=== PATIENT | female | born 1985 | race Caucasian/White ===

== ENCOUNTER 2016-08-10 09:03 | Outpatient (CLI) | payer MEDICAID | END 2016-08-10 09:04 | disposition home or self-care (01) | DX: R10.32 Left lower quadrant pain (principal); R10.33 Periumbilical pain ==

== ENCOUNTER 2016-08-10 11:12 | Emergency (ER) | payer MEDICAID | END 2016-08-10 16:15 | disposition home or self-care (01) | DX: K59.01 Slow transit constipation (principal); R30.0 Dysuria ==

== ENCOUNTER 2016-09-15 18:55 | Emergency (ER) | payer MEDICAID ==
[2016-09-15] MEDS ORDERED: IPRATROPIUM/ALBUTEROL 3 ML NEB INH STA (20:13)
[2016-09-15] MEDS ORDERED: PSEUDOEPHEDRINE 30 MG TABLET PO STA (20:13)
[2016-09-15] MEDS ORDERED: BENZONATATE 100 MG CAPSULE PO STA (20:14)
[2016-09-15] MEDS ORDERED: KETOROLAC 60 MG/2 ML VIAL IM STA (20:14)
[2016-09-15] MEDS ORDERED: IPRATROPIUM/ALBUTEROL 3 ML NEB INH ONE (20:21)
[2016-09-15] MEDS ORDERED: KETOROLAC 60 MG/2 ML VIAL ONE (20:26)
[2016-09-15] MEDS ORDERED: PSEUDOEPHEDRINE 30 MG TABLET PO ONE (20:26)
[2016-09-15] MEDS ORDERED: BENZONATATE 100 MG CAPSULE PO ONE (20:26)
== END 2016-09-15 20:59 | disposition home or self-care (01) ==
DX: J06.9 Acute upper respiratory infection, unspecified (principal)
CPT/HCPCS: 94640; 96372; 99283; A9270; J7620

== ENCOUNTER 2016-10-05 23:01 | Emergency (ER) | payer MEDICAID ==
[2016-10-05] MEDS ORDERED: IPRATROPIUM/ALBUTEROL 3 ML NEB INH STA (23:40)
[2016-10-05] MEDS ORDERED: IPRATROPIUM/ALBUTEROL 3 ML NEB INH ONE (23:50)
[2016-10-06] MEDS ORDERED: predniSONE 20 MG TABLET PO STA (00:43)
[2016-10-06] MEDS ORDERED: oxyCOD/ACETAMIN 5 MG/325 MG TABLET PO STA (00:43)
[2016-10-06] MEDS ORDERED: oxyCOD/ACETAMIN 5 MG/325 MG TABLET PO ONE (00:48)
[2016-10-06] MEDS ORDERED: predniSONE 20 MG TABLET ONE (00:48)
== END 2016-10-06 01:04 | disposition home or self-care (01) ==
DX: J45.909 Unspecified asthma, uncomplicated (principal)
CPT/HCPCS: 94640; 99283; A9270; J7512; J7620

== ENCOUNTER 2016-10-20 22:29 | Emergency (ER) | payer MEDICAID ==
[2016-10-20] MEDS ORDERED: DEXAMETHASONE 10 MG/ML VIAL PO STA (23:06)
[2016-10-20] MEDS ORDERED: IPRATROPIUM/ALBUTEROL 3 ML NEB INH STA (23:06)
[2016-10-20] MEDS ORDERED: CHERRY SYRUP 10 ML UDC PO ONE (23:29)
[2016-10-20] MEDS ORDERED: DEXAMETHASONE 10 MG/ML VIAL ONE (23:29)
[2016-10-20] MEDS ORDERED: IPRATROPIUM/ALBUTEROL 3 ML NEB INH ONE (23:43)
[2016-10-21] MEDS ORDERED: AZITHROMYCIN 250 MG TABLET PO STA (01:49)
[2016-10-21] MEDS ORDERED: AZITHROMYCIN 250 MG TABLET PO ONE (01:54)
== END 2016-10-21 02:00 | disposition home or self-care (01) ==
DX: J45.901 Unspecified asthma with (acute) exacerbation (principal)
CPT/HCPCS: 71020; 94640; 99283; A9270; J7620

== ENCOUNTER 2016-11-09 20:25 | Emergency (ER) | payer MEDICAID ==
[2016-11-10] MEDS ORDERED: ACETAMINOPHEN 325 MG TABLET PO STA (00:47)
[2016-11-10] MEDS ORDERED: LORazepam 0.5 MG TABLET PO STA (00:47)
[2016-11-10] MEDS ORDERED: LORazepam 0.5 MG TABLET ONE (00:53)
[2016-11-10] MEDS ORDERED: ACETAMINOPHEN 325 MG TABLET PO ONE (00:54)
== END 2016-11-10 00:59 | disposition home or self-care (01) ==
DX: R00.2 Palpitations (principal); J45.909 Unspecified asthma, uncomplicated
CPT/HCPCS: 36415; 80048; 82550; 85025; 99283; A9270

== ENCOUNTER 2016-12-08 10:30 | Outpatient (CLI) | payer MEDICAID | END 2016-12-08 10:31 | DX: J02.9 Acute pharyngitis, unspecified (principal) ==

== ENCOUNTER 2017-01-26 19:10 | Emergency (ER) | payer MEDICAID ==
[2017-01-26 19:34] LABS: BILIRUBIN,URINE NEGATIVE (NEGATIVE); PH,URINE 7.5 PH (5.0-7.5)
[2017-01-26 19:39] LABS: UA w/ MICROSCOPIC CHARGE YES
[2017-01-26 19:40] LABS: HCG UR QUAL NEGATIVE
[2017-01-26 19:46] LABS: UR CULTURE IF IND NOT INDICATED; WBC,URINE 0-3 /HPF (0-5)
--- NOTE | 2017-01-26 20:01 | ED Physician Documentation ---
PD HPI FEMALE - Stated complaint Stated Complaint: FLANK PAIN - Chief complaint Chief Complaint: Abd Pain - History obtained from History obtained from: Patient - History of Present Illness Timing - onset: How many weeks ago (1) Timing - duration: Weeks (she has had flank and back pain for a week, on both sides, more to left. Having frequency and burning with urination couple of days. Feeling of incomplete emptying.) Timing - details: Gradual onset, Still present, Waxing and waning Associated symptoms: Back pain, Pelvic pain, Vaginal discharge (mild), Dysuria, Urinary frequency. No: Fever Contributing factors: No: , Exposed to STD Similar symptoms before: Diagnosis (UTIs) Recently seen: Not recently seen Review of Systems Constitutional: denies: Fever, Chills Throat: denies: Sore throat Cardiac: denies: Chest pain / pressure, Palpitations Respiratory: denies: Dyspnea, Cough GI: reports: Abdominal Pain (lower to left), Nausea. denies: Vomiting, Diarrhea : reports: Dysuria, Frequency, Discharge. denies: Vaginal bleeding Skin: denies: Rash, Lesions Musculoskeletal: reports: Back pain. 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, 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 - Present Medications Home Medications: Ambulatory Orders Medication Instructions Recorded Confirmed Albuterol Sulf [Ventolin Hfa 2 puffs INH .FREQ 08/01/16 11/09/16 Inhaler] Venlafaxine ER [Effexor ER] 1 cap PO DAILY 11/09/16 11/09/16 Metronidazole [Flagyl] 500 mg PO BID #14 tablet 01/26/17 Ondansetron Odt [Zofran] 4 mg TL Q6H PRN #15 tablet 01/26/17 Phenazopyridine [Pyridium] 200 mg PO TID PRN #15 tablet 01/26/17 - Allergies Allergies/Adverse Reactions: Allergies Allergy/AdvReac Type Severity Reaction Status Date / Time Penicillins Allergy Severe Rash Verified 01/26/17 19:19 Underpadding from last CTR AdvReac Severe Rash Uncoded 01/26/17 19:19 - Social History Does the pt smoke?: No Smoking Status: Never smoker Does the pt drink ETOH?: No Does the pt have substance abuse?: No - Immunizations Immunizations are current?: Yes - POLST Patient has POLST: No PD ED PE NORMAL - Vitals Vital signs reviewed: Yes - General General: Alert and oriented X 3, Well developed/nourished, Other (appears in pain) - HEENT HEENT: Pharynx benign - Neck Neck: Supple, no meningeal sign, No adenopathy - Cardiac Cardiac: RRR, No murmur - Respiratory Respiratory: Clear bilaterally - Abdomen Abdomen: Soft, Non distended, No organomegaly, Other (mildly tender suprapubic area without guarding. ) - Female Female : [employer] present, Other (external normal. Periurethral area without sores/redness. Vault with moderate amount of white to green discharge and cervical irritation. Cervical motion causes pain. ) - Rectal Rectal: Deferred - Back Back: No CVA TTP - Derm Derm: Normal color - Neuro Neuro: Alert and oriented X 3, No motor deficit, Normal speech Results - Vitals Vitals: Vital Signs - 24 hr 01/26/17 01/26/17 19:19 21:34 Temperature 36.0 C L Heart Rate 112 H 98 Respiratory 18 18 Rate Blood Pressure 136/86 H 122/79 O2 Saturation 99 99 Oxygen O2 Source Room air - Labs Labs: Microbiology 01/26/17 20:53 Wet Prep - Final Vaginal Laboratory Tests 01/26/17 17:27 Urine Color YELLOW Urine Clarity HAZY Urine pH 7.5 Ur Specific [place] 1.010 Urine Protein NEGATIVE Urine Glucose (UA) NEGATIVE Urine Ketones TRACE Urine Occult Blood SMALL H Urine Nitrite NEGATIVE Urine Bilirubin NEGATIVE Urine Urobilinogen 0.2 (NORMAL) Ur Leukocyte Esterase NEGATIVE Urine RBC 0-5 Urine WBC 0-3 Ur Squamous Epith Cells MANY Squamous H Urine Bacteria Few Ur Microscopic Review INDICATED Urine Culture Comments NOT INDICATED Urine HCG, Qual NEGATIVE PD MEDICAL DECISION MAKING - ED course Complexity details: considered differential (she does have recurrent musculoskeletal back pain so may be having just that. Her dysuria appears to be from vaginitis. She does have increase in back pain with cervical movement so some of the pain is from vaginitis. Does not seem to be kidney pain. She does have frequent visits with DIETER, but does have acute process that can be giving reasonable pain. Given prepack so just few doses pain meds. ), d/w patient Departure - Departure Disposition: 01 Home, Self Care Clinical Impression: Dysuria, Bacterial vaginitis, Flank pain Clinical Impression: (Ruled Out): Urinary tract infection Condition: Stable Record reviewed to determine appropriate education?: Yes Instructions: ED Vaginosis Bacterial Follow-Up: Torin Dixon MD [Primary Care Provider] - Prescriptions: Metronidazole [Flagyl] 500 mg PO BID #14 tablet Phenazopyridine [Pyridium] 200 mg PO TID PRN #15 tablet PRN Reason: Pain Ondansetron Odt [Zofran] 4 mg TL Q6H PRN #15 tablet PRN Reason: Nausea / Vomiting Comments: Tylenol or Ibuprofen for pains. Pyridium to help with the pain of urination. This appears to be caused by a bacterial infection called Gardnerella. Take metronidazole twice daily for a week for that. Drink lots of fluids. Zofran for nausea if needed. Recheck if not improved over the next few days. Discharge Date/Time: 01/26/17 21:35
[2017-01-26] MEDS ORDERED: oxyCOD/ACETAMIN 5 MG/325 MG TABLET PO STA (20:21)
[2017-01-26] MEDS ORDERED: DEXAMETHASONE 10 MG/ML VIAL PO STA (20:21)
[2017-01-26] MEDS ORDERED: PHENAZOPYRIDINE 100 MG TABLET PO STA (20:21)
[2017-01-26] MEDS ORDERED: oxyCOD/ACETAMIN 5 MG/325 MG TABLET PO ONE (20:22)
[2017-01-26] MEDS ORDERED: DEXAMETHASONE 10 MG/ML VIAL ONE (20:23)
[2017-01-26] MEDS ORDERED: PHENAZOPYRIDINE 100 MG TABLET PO ONE (20:23)
[2017-01-26] MEDS ORDERED: metroNIDAZOLE 250 MG TABLET PO STA (20:54)
[2017-01-26] MEDS ORDERED: FLUCONAZOLE 100 MG TABLET PO STA (20:54)
[2017-01-26] MEDS ORDERED: oxyCODONE/ACET 5/325 Prepack 4 PO STA (20:54)
[2017-01-26] MEDS ORDERED: oxyCODONE/ACET 5/325 Prepack 4 PO ONE (20:57)
[2017-01-26] MEDS ORDERED: metroNIDAZOLE 250 MG TABLET PO ONE (20:57)
[2017-01-26] MEDS ORDERED: FLUCONAZOLE 100 MG TABLET ONE (20:57)
[2017-01-26] MEDS ORDERED: ONDANSETRON ODT 4 MG TABLET TL STA (21:27)
[2017-01-26] MEDS ORDERED: ONDANSETRON ODT 4 MG TABLET ONE (21:29)
[2017-01-26 21:34] VITALS: BP 122/79
== END 2017-01-26 21:35 | disposition home or self-care (01) ==
LOC: ED 19:10
DX: N76.0 Acute vaginitis (principal); B96.89 Other specified bacterial agents as the cause of diseases classified elsewhere; R30.0 Dysuria; R10.30 Lower abdominal pain, unspecified; J45.909 Unspecified asthma, uncomplicated
CPT/HCPCS: 51798; 81001; 81025; 87210; 87491; 87591; 99283; 99284; A9270; Q0162; 81003; 87086

== ENCOUNTER 2017-04-10 20:38 | Emergency (ER) | payer MEDICAID ==
[2017-04-10 20:54] VITALS: BP 149/80
[2017-04-10] MEDS ORDERED: oxyCOD/ACETAMIN 5 MG/325 MG TABLET PO STA (22:27)
[2017-04-10] MEDS ORDERED: oxyCOD/ACETAMIN 5 MG/325 MG TABLET PO ONE (22:33)
--- NOTE | 2017-04-10 23:11 | XRAY Preliminary Report ---
Exam: XR Ankle 3 View RT IMPRESSION: 1. No fracture. 2. Normal alignment. [facility] SITE ID: [id number]
--- NOTE | 2017-04-10 23:11 | XRAY Preliminary Report ---
Exam: XR Foot 3 View RT IMPRESSION: No fracture or malalignment. [facility] SITE ID: [id number]
--- NOTE | 2017-04-10 23:19 | XRAY Report ---
EXAM: RIGHT FOOT RADIOGRAPHY EXAM DATE: 04/10/2017 10:54 PM. CLINICAL HISTORY: Right foot and ankle pain after falling. COMPARISON: 06/08/2008. TECHNIQUE: 3 views. FINDINGS: Bones: Normal. No fractures or bone lesions. Joints: Normal. No subluxations. Soft Tissues: Normal. No soft tissue swelling. IMPRESSION: No fracture or malalignment. [facility] Referring Provider Line: [phone] SITE ID: [id number]
--- NOTE | 2017-04-10 23:19 | ED Physician Documentation ---
PD HPI LOWER EXT INJURY - Stated complaint Stated Complaint: FOOT PX - Chief complaint Chief Complaint: Trauma Ext - History obtained from History obtained from: Patient - History of Present Illness PD HPI LOW EXT INJURY LOCATION: Right, Ankle Type of injury: Twist Where injury occurred: Home Timing - onset: How many hours ago (1) Timing - details: Abrupt onset Improved by: Ice, Immobilization Worsened by: Moving, Palpating Associated symptoms: Swelling, Discolored Similar symptoms before: Has not had sx before Recently seen: Not recently seen - Additional information Additional information: Patient is a 32 year old female with no significant past medical history who is presenting to the emergency department for ankle pain. Patient states that she was going down the stairs when she stepped on some rocks on the stair twisting her ankle. Patient denied any other trauma and did not fall. Review of Systems Constitutional: denies: Fever, Chills Eyes: reports: Reviewed and negative Ears: reports: Reviewed and negative Nose: denies: Epistaxis Throat: reports: Reviewed and negative Respiratory: reports: Reviewed and negative GI: denies: Nausea, Vomiting Skin: denies: Rash, Abrasion (s), Laceration (s) Musculoskeletal: reports: Extremity pain, Joint pain, Extremity swelling, Joint swelling Neurologic: reports: Numbness. 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 - Present Medications Home Medications: Ambulatory Orders Medication Instructions Recorded Confirmed Alprazolam 1 tab PO PRN PRN 04/10/17 04/10/17 Escitalopram [Lexapro] 1 tab PO DAILY 04/10/17 04/10/17 - Allergies Allergies/Adverse Reactions: Allergies Allergy/AdvReac Type Severity Reaction Status Date / Time Penicillins Allergy Severe Rash Verified 04/10/17 23:18 Underpadding from last CTR AdvReac Severe Rash Uncoded 04/10/17 23:18 - Social History Does the pt smoke?: No Smoking Status: Never smoker Does the pt drink ETOH?: No Does the pt have substance abuse?: No - Immunizations Immunizations are current?: Yes - POLST Patient has POLST: No PD ED PE NORMAL - General General: Alert and oriented X 3, Well developed/nourished - HEENT HEENT: Atraumatic, PERRL - Neck Neck: No bony TTP - Cardiac Cardiac: RRR, No murmur - Respiratory Respiratory: No respiratory distress - Abdomen Abdomen: Non distended - Neuro Neuro: Alert and oriented X 3, No motor deficit, No sensory deficit, Normal speech - Psych Psych: Normal mood, Normal affect PD ED PE EXPANDED - General General: Alert, In Pain - Extremities Extremities: Right ankle, Right foot (tenderness and swelling or right ankle and foot with ecchymosis) Results - Vitals Vitals: Vital Signs - 24 hr 04/10/17 20:52 Temperature 36.8 C Heart Rate 113 H Respiratory 18 Rate Blood Pressure 149/80 H O2 Saturation 100 Oxygen O2 Source Room air - Rads (name of study) x-ray foot and ankle Radiology: Final report received (no acute fracture or dislocation), See rad report PD MEDICAL DECISION MAKING - ED course Complexity details: reviewed old records, reviewed results, re-evaluated patient , considered differential, d/w patient ED course: Patient was seen and examined at bedside. Patient was treated with ice and percocet and sent for imaging. when patient returned the results were reviewed. there was no acute fracture or dislocation. Patient was placed in an ankle brace and was stable for discharge with outpatient follow up. Departure - Departure Disposition: 01 Home, Self Care Clinical Impression: Ankle injury Condition: Good Instructions: ED Sprain Ankle W X Ray Follow-Up: Torin Dixon MD [Primary Care Provider] - As Needed Comments: There was no acute fracture or dislocation on your imaging. You will need to take motrin or tylenol as needed for pain. You should ice your ankle at least 6 times a day and keep it elevated as much as possible. You will be put in ankle brace today, and should wear that for comfort. As the pain and swelling improves you should switch to the gene bandage. You should follow up with your pmd if your symptoms persist for more than 2 weeks. Forms: Activity restrictions Discharge Date/Time: 04/10/17 23:36
--- NOTE | 2017-04-10 23:19 | XRAY Report ---
EXAM: RIGHT ANKLE RADIOGRAPHY EXAM DATE: 04/10/2017 10:54 PM. CLINICAL HISTORY: Right ankle pain. COMPARISON: 06/08/2008. TECHNIQUE: 3 views. FINDINGS: Bones: Normal. No fractures or bone lesions. Joints: Normal. No effusion. No subluxations. The ankle mortise is normally aligned. Soft Tissues: Normal. No soft tissue swelling. IMPRESSION: 1. No fracture. 2. Normal alignment. [facility] Referring Provider Line: [phone] SITE ID: [id number]
== END 2017-04-10 23:36 | disposition home or self-care (01) ==
LOC: ED 20:38
DX: S99.911A Unspecified injury of right ankle, initial encounter (principal); X50.0XXA Overexertion from strenuous movement or load, initial encounter; Y92.019 Unspecified place in single-family (private) house as the place of occurrence of the external cause; J45.909 Unspecified asthma, uncomplicated
CPT/HCPCS: 73610; 73630; 99283; A9270

== ENCOUNTER 2017-06-20 08:46 | Outpatient (CLI) | payer MEDICAID ==
[2017-06-20 09:02] LABS: BASOPHILS % (AUTO) 0.4 %; EOSINOPHILS # (AUTO) 0.2 10^3/uL (0.0-0.7); EOSINOPHILS % (AUTO) 1.9 %; HCT - HEMATOCRIT 38.1 % (37.0-47.0); HGB - HEMOGLOBIN 12.5 g/dL (12.0-16.0); LYMPHOCYTES # (AUTO) 1.3 10^3/uL (1.5-3.5); MEAN CORPUSCULAR HEMOGLOBIN 25.5 pg (27.0-31.0); MEAN CORPUSCULAR HGB CONC 32.7 g/dL (32.0-36.0); MEAN PLATELET VOLUME 8.3 fL (7.9-10.8); MONOCYTES # (AUTO) 0.9 10^3/uL (0.0-1.0); MONOCYTES % (AUTO) 7.1 %; NEUTROPHILS # (AUTO) 9.7 10^3/uL (1.5-6.6); NEUTROPHILS % (AUTO) 79.6 %; RED BLOOD COUNT 4.88 10^6/uL (4.20-5.40); RED CELL DISTRIBUTION WIDTH 13.9 % (12.0-15.0); UNCORRECTED WHITE BLOOD COUNT 12.1 x10^3/uL; WHITE BLOOD COUNT 12.1 x10^3/uL (4.8-10.8)
[2017-06-20 09:18] LABS: HEMOGLOBIN A1C 0.57 g/dL
[2017-06-20 09:33] LABS: ALBUMIN/GLOBULIN RATIO 1.5 (1.0-2.2); BILIRUBIN,TOTAL 0.6 mg/dL (0.2-1.0); BUN - BLOOD UREA NITROGEN 7 mg/dL (6-20); CALCIUM 9.1 mg/dL (8.5-10.3); CARBON DIOXIDE - CO2 24 mmol/L (21-32); CHLORIDE 102 mmol/L (101-111); CHOL/HDL RATIO 3.6 (<4.4); CHOLESTEROL 180 mg/dL; CREATININE 0.7 mg/dL (0.4-1.0); GFR - MDRD 98 (>89); GLUCOSE 115 mg/dL (70-100); HDL CHOLESTEROL 50 mg/dL; LDL/HDL RATIO 2.3 (<4.4); POTASSIUM 3.2 mmol/L (3.5-5.0); SODIUM 137 mmol/L (135-145); TOTAL PROTEIN 7.5 g/dL (6.7-8.2); TRIGLYCERIDES 70 mg/dL; VLDL CHOLESTEROL 14 mg/dL
== END 2017-06-20 08:47 | disposition home or self-care (01) ==
LOC: LAB 08:46
PROVIDERS: ATTEND Physician Assistant Medical
DX: E11.9 Type 2 diabetes mellitus without complications (principal); Z79.899 Other long term (current) drug therapy; R31.9 Hematuria, unspecified
CPT/HCPCS: 36415; 80053; 80061; 83036; 84443; 85025; 87086

== ENCOUNTER 2017-06-20 15:20 | Outpatient (CLI) | payer MEDICAID | END 2017-06-20 15:21 | disposition home or self-care (01) | LOC: LAB.R 15:20 | PROVIDERS: ATTEND Family Medicine | DX: R31.9 Hematuria, unspecified (principal) | CPT/HCPCS: 87086 ==

== ENCOUNTER 2017-10-28 08:00 | Outpatient (CLI) | payer MEDICAID | END 2017-10-28 08:01 | disposition home or self-care (01) | LOC: LAB.R 08:00 | PROVIDERS: ATTEND Family Medicine | DX: R10.2 Pelvic and perineal pain (principal) | CPT/HCPCS: 87070; 87480; 87491; 87510; 87591; 87660 ==

== ENCOUNTER 2017-10-29 13:48 | Outpatient (CLI) | payer MEDICAID ==
--- NOTE | 2017-10-29 15:57 | Ultrasound Report ---
EXAM: PELVIC ULTRASOUND EXAM DATE: 10/29/2017 03:19 PM. CLINICAL HISTORY: OTHER OVARIAN CYST, RIGHT SIDE. COMPARISON: 08/10/2016. TECHNIQUE: Realtime transabdominal pelvic scan performed to identify the uterus and adnexa and as an overview of other pelvic structures, followed by transvaginal scan to provide greater detail of the u terus and adnexa, with static image documentation. FINDINGS: Uterus: 9.7 x 5.9 x 7.7 cm, volume 2:30 cc. Anteverted position. Normal overall size and echotexture. Masses: None. Endometrium: 14 mm. Normal. Cervix: Unremarkable. Right Ovary: 3.0 x 1.8 x 2.5 cm, volume 7.0 cc. Normal echotexture and color Doppler blood flow. Left Ovary: 3.7 x 1.6 x 2.2 cm, volume 6.8 cc. Normal echotexture. Seen only transabdominally. Free Fluid: Trace, likely physiologic. Other: None. IMPRESSION: Normal pelvic ultrasound. [facility] Referring Provider Line: [phone] SITE ID: [id number]
== END 2017-10-29 13:49 | disposition home or self-care (01) ==
LOC: DI 13:48
PROVIDERS: ATTEND Family Medicine
DX: N83.291 Other ovarian cyst, right side (principal)
CPT/HCPCS: 76830; 76856

== ENCOUNTER 2018-01-04 09:17 | Outpatient (CLI) | payer MEDICAID ==
--- NOTE | 2018-01-04 13:22 | XRAY Report ---
THREE VIEW CERVICAL SPINE: 01/04/2018 CLINICAL INDICATION: Radiculopathy. COMPARISON: 04/24/2012. FINDINGS: AP, lateral, odontoid views of the cervical spine demonstrate stable reversal of the normal cervical lordosis. The disk spaces are preserved. The prevertebral soft tissues are unremarkable. There is no evidence of interval fracture. IMPRESSION: NO EVIDENCE OF FRACTURE. NO SIGNIFICANT INTERVAL CHANGE. TD: 01/04/2018 13:03
== END 2018-01-04 09:18 | disposition home or self-care (01) ==
LOC: DI 09:17
PROVIDERS: ATTEND Family Medicine
DX: M54.12 Radiculopathy, cervical region (principal)
CPT/HCPCS: 72040

== ENCOUNTER 2018-01-06 11:00 | Outpatient (CLI) | payer MEDICAID | END 2018-01-06 11:01 | disposition home or self-care (01) | LOC: LAB.R 11:00 | PROVIDERS: ATTEND Family Medicine | DX: R31.9 Hematuria, unspecified (principal); N89.8 Other specified noninflammatory disorders of vagina | CPT/HCPCS: 87086 ==

== ENCOUNTER 2018-01-21 10:33 | Outpatient (CLI) | payer OTHER ==
--- NOTE | 2018-01-22 05:33 | CT Report ---
Procedure Date: 01/21/2018 Accession Number: [id number] / [id number] Procedure: CT - Abdomen/Pelvis W/O CPT Code: FULL RESULT: EXAM: CT ABDOMEN AND PELVIS (CT KUB) EXAM DATE: 01/21/2018 11:30 AM. CLINICAL HISTORY: Hematuria. COMPARISONS: 08/10/2016. TECHNIQUE: Routine axial helical CT imaging was performed through the abdomen and pelvis without IV contrast. Reconstructions: Coronal and sagittal. In accordance with CT protocol optimization, one or more of the following dose reduction techniques were utilized for this exam: automated exposure control, adjustment of mA and/or KV based on patient size, or use of iterative reconstructive technique. FINDINGS: Lung Bases: Unremarkable. Right Kidney/Ureter: No stones, hydronephrosis, or hydroureter. No perinephric fat stranding. Left Kidney/Ureter: No stones, hydronephrosis, or hydroureter. No perinephric fat stranding. Other Solid Organs: Noncontrast images of the solid organs are grossly unremarkable with exception of probable fatty liver. Gallbladder/Bile Ducts: Unremarkable. Peritoneal Cavity: No free fluid, free air or chioma adenopathy. Bowel is grossly unremarkable. Pelvic Organs: No bladder stones or wall thickening. Noncontrast images of the visualized pelvic organs are unremarkable. Vasculature: Unremarkable. Other: None. IMPRESSION: No urinary tract stones or obstruction. [facility]
== END 2018-01-21 10:34 | disposition home or self-care (01) ==
LOC: DI 10:33
PROVIDERS: ATTEND Family Medicine
DX: R31.9 Hematuria, unspecified (principal)
CPT/HCPCS: 74176

== ENCOUNTER 2018-02-27 00:16 | Emergency (ER) | payer OTHER ==
--- NOTE | 2018-02-27 00:51 | ED Physician Documentation ---
History of Present Illness - Stated complaint Stated Complaint: NEEDLE STICK - Chief complaint Chief Complaint: Needlestick - History obtained from History obtained from: Patient - Additonal information Additional information: 33-year-old female presents to the emergency department after a needlestick. The patient was hoping disrobe the patient on the floor and was stopped by his personal heroin needle. The needle was described as an insulin size needle. The needle did not puncture the patient's skin, there was no blood drawn. The patient had an abrasion to the finger. The patient denies pain or foreign body sensation. The source individual is being tested for hepatitis C and HIV. Otherwise the patient has no symptoms. 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 - Present Medications Home Medications: Ambulatory Orders Medication Instructions Recorded Confirmed ALPRAZolam [Alprazolam] 1 tab PO PRN PRN 04/10/17 02/27/18 Escitalopram [Lexapro] 1 tab PO DAILY 04/10/17 02/27/18 - Allergies Allergies/Adverse Reactions: Allergies Allergy/AdvReac Type Severity Reaction Status Date / Time Penicillins Allergy Severe Rash Verified 02/27/18 00:32 Underpadding from last CTR AdvReac Severe Rash Uncoded 02/27/18 00:32 - Social History Does the pt smoke?: No Smoking Status: Never smoker Does the pt drink ETOH?: No Does the pt have substance abuse?: No - Immunizations Immunizations are current?: Yes - POLST Patient has POLST: No PD ED PE NORMAL - General General: Alert and oriented X 3, No acute distress - HEENT HEENT: Atraumatic, PERRL, EOMI, Ears normal - Derm Derm: Normal color, No rash, Other (Evaluation of the affected hand, there is no evidence of a puncture wound or laceration or disruption of the skin. There is no bony injury. Normal cap refill and normal radial pulses.) - Extremities Extremities: No deformity, No tenderness to palpate, Normal ROM s pain - Neuro Neuro: Alert and oriented X 3, Normal speech - Psych Psych: Normal mood Results - Vitals Vitals: Vital Signs - 24 hr 02/27/18 00:20 Temperature 37.1 C Heart Rate 111 H Respiratory 20 Rate Blood Pressure 146/96 H O2 Saturation 100 Oxygen O2 Source Room air PD MEDICAL DECISION MAKING - ED course ED course: The patient currently has a very mild exposure, the source patient is being tested for hepatitis and HIV. Presently, the patient does not want HIV prophylaxis until the results from the patient are back. The patient appears appropriate for discharge and follow-up with employee health. I discussed warning signs and recommend returning to the emergency department for worsening or any concerns - Sepsis Event Vital Signs: Vital Signs - 24 hr 02/27/18 00:20 Temperature 37.1 C Heart Rate 111 H Respiratory 20 Rate Blood Pressure 146/96 H O2 Saturation 100 Oxygen O2 Source Room air Departure - Departure Disposition: 01 Home, Self Care Clinical Impression: Needle stick injury Condition: Good Instructions: ED Wound Puncture General Comments: Please follow-up with employee health for further management of your needlestick. Please return to the emergency department for worsening symptoms or any concerns
[2018-02-27 01:33] VITALS: BP 139/77
[2018-02-28 13:22] LABS: HEPATITIS B SURFACE AB QN IMM <5 mIU/mL (> OR = 10); HEPATITIS C ANTIBODY NON-REACTIVE (NON-REACTIVE)
[2018-02-28 14:13] LABS: HIV AG/AB 4TH GEN NON-REACTIVE (NON-REACTIVE)
== END 2018-02-27 01:20 | disposition home or self-care (01) ==
LOC: ED 00:16
DX: S60.419A Abrasion of unspecified finger, initial encounter (principal); W46.1XXA Contact with contaminated hypodermic needle, initial encounter; Z77.21 Contact with and (suspected) exposure to potentially hazardous body fluids; Y93.F9 Activity, other caregiving; Y99.0 Civilian activity done for income or pay
CPT/HCPCS: 36415; 86317; 86803; 87389; 99283

== ENCOUNTER 2018-03-03 09:00 | Outpatient (CLI) | payer MEDICAID, OTHER ==
[2018-03-03 12:56] LABS: BASOPHILS # (AUTO) 0.1 10^3/uL (0.0-0.1); BASOPHILS % (AUTO) 0.8 %; EOSINOPHILS # (AUTO) 0.2 10^3/uL (0.0-0.7); EOSINOPHILS % (AUTO) 2.4 %; LYMPHOCYTES # (AUTO) 2.9 10^3/uL (1.5-3.5); LYMPHOCYTES % (AUTO) 33.9 %; MEAN CORPUSCULAR HEMOGLOBIN 26.9 pg (27.0-31.0); MEAN CORPUSCULAR HGB CONC 33.9 g/dL (32.0-36.0); MEAN CORPUSCULAR VOLUME 79.3 fL (81.0-99.0); MEAN PLATELET VOLUME 9.5 fL (7.9-10.8); MONOCYTES # (AUTO) 0.7 10^3/uL (0.0-1.0); MONOCYTES % (AUTO) 8.4 %; NEUTROPHILS # (AUTO) 4.7 10^3/uL (1.5-6.6); NEUTROPHILS % (AUTO) 54.5 %; PLT - PLATELET COUNT 190 10^3/uL (130-450); RED BLOOD COUNT 4.44 10^6/uL (4.20-5.40); RED CELL DISTRIBUTION WIDTH 13.2 % (12.0-15.0); WHITE BLOOD COUNT 8.6 x10^3/uL (4.8-10.8)
[2018-03-03 13:22] LABS: ALBUMIN 4.2 g/dL (3.2-5.5); ALBUMIN/GLOBULIN RATIO 1.6 (1.0-2.2); BILIRUBIN,TOTAL 0.5 mg/dL (0.2-1.0); CALCIUM 9.1 mg/dL (8.5-10.3); CREATININE 0.7 mg/dL (0.4-1.0); TOTAL PROTEIN 6.8 g/dL (6.7-8.2)
[2018-03-03 14:06] LABS: THYROID STIMULATING HORMONE 8.19 uIU/mL (0.34-5.60)
[2018-03-03 14:10] LABS: FREE T4 (FREE THYROXINE) 0.89 ng/dL (0.58-1.64)
== END 2018-03-03 09:01 | disposition home or self-care (01) ==
LOC: LAB.WCP 09:00
PROVIDERS: ATTEND Family Medicine
DX: R00.2 Palpitations (principal); R03.0 Elevated blood-pressure reading, without diagnosis of hypertension; R73.9 Hyperglycemia, unspecified; R00.0 Tachycardia, unspecified
CPT/HCPCS: 36415; 80053; 84439; 84443; 84481; 85025

== ENCOUNTER 2018-03-06 15:57 | Emergency (ER) | payer OTHER ==
[2018-03-06] MEDS ORDERED: ALPRAZolam 0.25 MG TABLET PO STA (18:11)
--- NOTE | 2018-03-06 18:14 | ED Physician Documentation ---
History of Present Illness - Stated complaint Stated Complaint: RAPID HEART - Chief complaint Chief Complaint: Cardiac - History obtained from History obtained from: Patient - History of Present Illness Timing: Today Pain level max: 0 Pain level now: 0 Improved by: rest Worsened by: coffee, metoprolol, stress. recently started on nights. working two jobs and raising her children. - Additonal information Additional information: states feeling shaky and anxious recently states that she started working nights and started metoprolol. states doesn't like the way it makes her feel States xanax has helped in the past. Review of Systems Constitutional: denies: Fever, Chills Ears: denies: Ear pain Nose: denies: Rhinorrhea / runny nose, Congestion Cardiac: denies: Chest pain / pressure Respiratory: denies: Cough, Wheezing GI: denies: Vomiting, Diarrhea : denies: Dysuria, Now EGA Skin: denies: Rash Musculoskeletal: denies: Neck pain, Back pain Neurologic: denies: Focal weakness, Numbness, Confused, Altered mental status, Headache Psychiatric: reports: Anxiety PD PAST MEDICAL HISTORY - Past Medical History Past Medical History: Yes Cardiovascular: None Respiratory: Asthma Endocrine/Autoimmune: None GI: None : None HEENT: None Psych: Anxiety Musculoskeletal: None Derm: None - Past Surgical History Past Surgical History: Yes Ortho: Carpal Tunnel surgery, 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, 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 - Present Medications Home Medications: Ambulatory Orders Medication Instructions Recorded Confirmed ALPRAZolam [Alprazolam] 1 tab PO PRN PRN 04/10/17 02/27/18 Escitalopram [Lexapro] 1 tab PO DAILY 04/10/17 02/27/18 Alprazolam [Xanax] 0.5 mg PO BID PRN #10 tablet 03/06/18 - Allergies Allergies/Adverse Reactions: Allergies Allergy/AdvReac Type Severity Reaction Status Date / Time Penicillins Allergy Severe Rash Verified 02/27/18 00:32 Underpadding from last CTR AdvReac Severe Rash Uncoded 02/27/18 00:32 - Social History Does the pt smoke?: No Smoking Status: Never smoker Does the pt drink ETOH?: No Does the pt have substance abuse?: No - Immunizations Immunizations are current?: Yes - POLST Patient has POLST: No PD ED PE NORMAL - Vitals Vital signs reviewed: Yes - General General: Alert and oriented X 3, No acute distress - HEENT HEENT: Moist mucous membranes - Neck Neck: Supple, no meningeal sign - Cardiac Cardiac: RRR - Respiratory Respiratory: No respiratory distress, Clear bilaterally - Abdomen Abdomen: Soft, Non tender, Non distended - Back Back: No spinal TTP - Derm Derm: Warm and dry - Extremities Extremities: No edema, No calf tenderness / cord - Neuro Neuro: Alert and oriented X 3 - Psych Psych: Other (anxious) Results - Vitals Vitals: Vital Signs - 24 hr 03/06/18 03/06/18 15:57 18:29 Temperature 36.4 C L Heart Rate 110 H 105 H Respiratory 16 20 Rate Blood Pressure 139/87 H 150/89 H O2 Saturation 98 100 Oxygen O2 Source Room air - EKG (time done) 1605 Rate: Rate (enter#) (107) Rhythm: Sinus tachycardia [place]: Normal Intervals: Normal NC QRS: Normal Ischemia: Normal ST segments Computer interpretation: Agree with computer PD MEDICAL DECISION MAKING - ED course Complexity details: reviewed old records, reviewed results, re-evaluated patient , considered differential, d/w patient ED course: Patient is a 33-year-old female who presents to the emergency department with what appears to be anxiety. No evidence of pulmonary embolism. Feels much better after Xanax and Xanax has helped her in the past. She has been under increasing stress recently. We will have her follow-up with her doctor for further evaluation and care. Heart rate decreased. Patient counseled regarding signs and symptoms for which I believe and urgent re-evaluation would be necessary. Patient with good understanding of and agreement to plan and is comfortable going home at this time This document was made in part using voice recognition software. While efforts are made to proofread this document, sound alike and grammatical errors may occur. No chest pain here. No palpitations here. No shortness of breath here. No coughing. - Sepsis Event Vital Signs: Vital Signs - 24 hr 03/06/18 03/06/18 15:57 18:29 Temperature 36.4 C L Heart Rate 110 H 105 H Respiratory 16 20 Rate Blood Pressure 139/87 H 150/89 H O2 Saturation 98 100 Oxygen O2 Source Room air Departure - Departure Disposition: 01 Home, Self Care Clinical Impression: Anxiety Condition: Good Instructions: ED Panic Attack Follow-Up: Torin Dixon MD [Primary Care Provider] - Within 3 Days Prescriptions: Alprazolam [Xanax] 0.5 mg PO BID PRN #10 tablet PRN Reason: Anxiety Comments: Do not drive or operate heavy machinery while taking the Xanax. Return if you worsen. Follow-up with your doctor about your metoprolol. Forms: Activity restrictions Discharge Date/Time: 03/06/18 18:31
[2018-03-06 18:30] VITALS: BP 150/89
== END 2018-03-06 18:31 | disposition home or self-care (01) ==
LOC: ED 15:57
DX: F41.9 Anxiety disorder, unspecified (principal); R00.0 Tachycardia, unspecified
CPT/HCPCS: 93005; 99283; A9270

== ENCOUNTER 2018-05-05 03:41 | Emergency (ER) | payer MEDICAID, OTHER ==
[2018-05-05 03:48] VITALS: BP 168/108
--- NOTE | 2018-05-05 03:59 | ED Physician Documentation ---
PD HPI HEENT - Stated complaint Stated Complaint: THROAT PX - Chief complaint Chief Complaint: Heent - History obtained from History obtained from: Patient - History of Present Illness Timing - onset: How many days ago (2-3 days) Timing - duration: Days Timing - details: Gradual onset Pain level now: 8 Location: Throat Improves: Nothing Worsens: Swalllowing Associated symptoms: Headache. No: Fever, Congestion Similar symptoms before: Diagnosis (KEITA is similar to previous migraine headaches) - Additional information Additional information: c/o 2-3 days of gradual onset, steadily worsening sore throat, worse on right. 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 - Present Medications Home Medications: Ambulatory Orders Medication Instructions Recorded Confirmed Alprazolam [Xanax] 0.5 mg PO BID PRN #10 tablet 03/06/18 Hydrocodone/Acetaminophen 1 - 2 tab PO Q6HR PRN #14 tablet 05/05/18 [Hydrocodone-Acetamin 5-325 mg] Pnv No.121/Iron/Folic Acid 1 tab PO DAILY 05/05/18 05/05/18 [ Multivitamin Tablet] Sertraline [Zoloft] 50 mg PO DAILY 05/05/18 05/05/18 - Allergies Allergies/Adverse Reactions: Allergies Allergy/AdvReac Type Severity Reaction Status Date / Time Penicillins Allergy Severe Rash Verified 05/05/18 03:48 Underpadding from last CTR AdvReac Severe Rash Uncoded 05/05/18 03:48 - Social History Does the pt smoke?: No Smoking Status: Never smoker Does the pt drink ETOH?: No Does the pt have substance abuse?: No - Immunizations Immunizations are current?: Yes - POLST Patient has POLST: No PD ED PE NORMAL - Vitals Vital signs reviewed: Yes - General General: Alert and oriented X 3, Well developed/nourished, Other (appears uncomfortable) - HEENT HEENT: PERRL, EOMI, Moist mucous membranes - Neck Neck: Supple, no meningeal sign PD ED PE EXPANDED - HEENT HEENT: Pharyngeal erythema, Tonsillar exudate (R>L). No: Swollen tonsils Results - Vitals Vitals: Vital Signs - 24 hr 05/05/18 03:45 Temperature 36.8 C Heart Rate 90 Respiratory 16 Rate Blood Pressure 168/108 H O2 Saturation 100 Oxygen O2 Source Room air - Labs Labs: Laboratory Tests 05/05/18 03:00 Group A Strep Rapid Negative PD MEDICAL DECISION MAKING - ED course Complexity details: reviewed results, considered differential, d/w patient - Sepsis Event Vital Signs: Vital Signs - 24 hr 05/05/18 03:45 Temperature 36.8 C Heart Rate 90 Respiratory 16 Rate Blood Pressure 168/108 H O2 Saturation 100 Oxygen O2 Source Room air Departure - Departure Disposition: 01 Home, Self Care Clinical Impression: Pharyngitis Qualifiers: Pharyngitis/tonsillitis etiology: unspecified etiology Qualified Code(s): J02.9 - Acute pharyngitis, unspecified Condition: Good Instructions: ED Pharyngitis Viral Report Pending Prescriptions: Hydrocodone/Acetaminophen [Hydrocodone-Acetamin 5-325 mg] 1 - 2 tab PO Q6HR PRN #14 tablet PRN Reason: Pain Forms: Activity restrictions Discharge Date/Time: 05/05/18 04:47
[2018-05-05] MEDS ORDERED: DEXAMETHASONE 10 MG/ML VIAL PO STA (04:36)
[2018-05-05] MEDS ORDERED: HYDROcod/ACETAM 5/325 MG TABLET PO STA (04:36)
[2018-05-05] MEDS ORDERED: CHERRY SYRUP 10 ML UDC PO ONE (04:42)
== END 2018-05-05 04:47 | disposition home or self-care (01) ==
LOC: ED 03:41
DX: J02.9 Acute pharyngitis, unspecified (principal)
CPT/HCPCS: 87070; 87430; 99283; A9270

== ENCOUNTER 2018-05-24 17:13 | Emergency (ER) | payer OTHER ==
[2018-05-24 17:18] VITALS: BP 153/90
[2018-05-24] MEDS ORDERED: NAPROXEN 250 MG TABLET PO STA (17:59)
--- NOTE | 2018-05-24 18:11 | XRAY Report ---
Reason: pain Procedure Date: 05/24/2018 Accession Number: [id number] / [id number] Procedure: XR - Shoulder 3 View LT CPT Code: FULL RESULT: EXAM: LEFT SHOULDER RADIOGRAPHY EXAM DATE: 05/24/2018 05:56 PM. CLINICAL HISTORY: Pain. COMPARISON: None. TECHNIQUE: 3 views. FINDINGS: Bones: Normal. No fracture or bone lesion. Joints: The glenohumeral and acromioclavicular joints are normal. Soft tissues: The visualized hemithorax is unremarkable. No soft tissue swelling. IMPRESSION: Normal shoulder radiography. RADIA
--- NOTE | 2018-05-24 18:35 | ED Physician Documentation ---
PD HPI UPPER EXT INJURY - Stated complaint Stated Complaint: LT SHOULDER PX/NUMBNESS DOWN TO FINGERS - Chief complaint Chief Complaint: Ext Problem - History obtained from History obtained from: Patient - History of Present Illness Location: Left, Shoulder Type of injury: Other (No specific injury) Timing - onset: How many weeks ago (1 week) Timing - details: Gradual onset Severity Comments: Moderate Improved by: Rest Worsened by: Moving, Palpating Associated symptoms: No: Weakness, Numbness, Tingling, Swelling, Discolored Contributing factors: No: Anticoagulated Similar symptoms before: Has not had sx before Recently seen: Not recently seen - Additonal information Additional information: 33-year-old reports pain in her left shoulder which is worse with movement. No recent injury or trauma. Review of Systems Constitutional: denies: Fever Eyes: denies: Loss of vision Ears: denies: Ear pain Throat: denies: Sore throat Cardiac: denies: Chest pain / pressure Musculoskeletal: reports: Extremity pain, Joint pain Neurologic: denies: Generalized weakness, Focal weakness, Numbness Immunocompromised: denies: Chemotherapy PD PAST MEDICAL HISTORY - Past Medical History Cardiovascular: None Respiratory: Asthma Endocrine/Autoimmune: None GI: None : None HEENT: None Psych: Anxiety Musculoskeletal: None Derm: None - Past Surgical History Past Surgical History: Yes Ortho: Carpal Tunnel surgery, 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, 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 - Present Medications Home Medications: Ambulatory Orders Medication Instructions Recorded Confirmed Alprazolam [Xanax] 0.5 mg PO BID PRN #10 tablet 03/06/18 - Allergies Allergies/Adverse Reactions: Allergies Allergy/AdvReac Type Severity Reaction Status Date / Time Penicillins Allergy Severe Rash Verified 05/24/18 17:19 Underpadding from last CTR AdvReac Severe Rash Uncoded 05/24/18 17:19 - Social History Does the pt smoke?: No Smoking Status: Never smoker Does the pt drink ETOH?: No Does the pt have substance abuse?: No - Immunizations Immunizations are current?: Yes - POLST Patient has POLST: No PD ED PE NORMAL - General General: Alert and oriented X 3, No acute distress - HEENT HEENT: Atraumatic, PERRL, EOMI, Ears normal - Neck Neck: No bony TTP - Back Back: No CVA TTP - Derm Derm: Normal color - Extremities Extremities: No deformity, Normal ROM s pain, No edema. No: No tenderness to palpate (The patient has tenderness to palpation in the shoulder, there is no evidence of swelling or deformity. The patient appears to have normal range of motion. The patient has no pain on passive range of motion. The patient has a normal radial pulse and normal cap refill and there is no swelling of the extremity.) - Neuro Neuro: Alert and oriented X 3, No motor deficit, Normal speech - Psych Psych: Normal affect Results - Vitals Vitals: Vital Signs - 24 hr 05/24/18 17:17 Temperature 36.5 C Heart Rate 110 H Respiratory 16 Rate Blood Pressure 153/90 H O2 Saturation 100 Oxygen O2 Source Room air - Rads (name of study) shoulder Radiology: Final report received PD MEDICAL DECISION MAKING - ED course ED course: No acute abnormality seen on x-ray, the patient appears appropriate for discharge and ongoing outpatient management. I advise close follow-up with primary care for an outpatient MRI, physical therapy and a referral to orthopedics. I discussed warning signs and recommended returning to the emergency department for any worsening or any concerns. Departure - Departure Disposition: 01 Home, Self Care Clinical Impression: Left shoulder pain Qualifiers: Chronicity: acute Qualified Code(s): M25.512 - Pain in left shoulder Condition: Good Instructions: ED Shoulder Pain UKO Follow-Up: Max Dorman MD [Primary Care Provider] - Within 1 week (Please ask your primary care about possibly ordering an MRI to further evaluate your shoulder pain. Please ask your primary care about a referral to orthopedics and physical therapy.) Comments: Please return to the emergency department for worsening symptoms or any concerns
== END 2018-05-24 19:03 | disposition home or self-care (01) ==
LOC: ED 17:13
DX: M25.512 Pain in left shoulder (principal)
CPT/HCPCS: 73030; 99283; A9270

== ENCOUNTER 2018-06-06 11:24 | Outpatient (CLI) | payer OTHER ==
[2018-06-06 18:41] LABS: BASOPHILS # (AUTO) 0.1 10^3/uL (0.0-0.1); BASOPHILS % (AUTO) 1.1 %; EOSINOPHILS # (AUTO) 0.1 10^3/uL (0.0-0.7); EOSINOPHILS % (AUTO) 1.7 %; HGB - HEMOGLOBIN 12.5 g/dL (12.0-16.0); LYMPHOCYTES % (AUTO) 27.3 %; MEAN CORPUSCULAR HEMOGLOBIN 25.8 pg (27.0-31.0); MEAN CORPUSCULAR HGB CONC 32.2 g/dL (32.0-36.0); MEAN CORPUSCULAR VOLUME 79.9 fL (81.0-99.0); MEAN PLATELET VOLUME 9.3 fL (7.9-10.8); MONOCYTES # (AUTO) 0.5 10^3/uL (0.0-1.0); MONOCYTES % (AUTO) 6.5 %; NEUTROPHILS # (AUTO) 4.7 10^3/uL (1.5-6.6); NEUTROPHILS % (AUTO) 63.4 %; PLT - PLATELET COUNT 241 10^3/uL (130-450); RED BLOOD COUNT 4.85 10^6/uL (4.20-5.40); RED CELL DISTRIBUTION WIDTH 14.2 % (12.0-15.0); WHITE BLOOD COUNT 7.4 x10^3/uL (4.8-10.8)
[2018-06-06 19:13] LABS: % IRON SATURATION 33 % (20-50); IRON 140 ug/dL (28-170); TOTAL IRON BINDING CAPACITY 428 ug/dL (250-450); TRANSFERRIN 306 mg/dL (192-382)
== END 2018-06-06 11:25 | disposition home or self-care (01) ==
LOC: LAB.WCP 11:24
PROVIDERS: ATTEND Family Medicine
DX: D64.9 Anemia, unspecified (principal)
CPT/HCPCS: 36415; 82728; 83540; 84466; 85025

== ENCOUNTER 2018-08-23 22:28 | Emergency (ER) | payer BC, OTHER ==
[2018-08-23 22:54] LABS: BILIRUBIN,URINE NEGATIVE (NEGATIVE); GLUCOSE, URINE (UA) NEGATIVE (NEGATIVE); KETONES,URINE (UA) NEGATIVE (NEGATIVE); LEUKOCYTE ESTERASE, URINE NEGATIVE (NEGATIVE); NITRITE,URINE NEGATIVE (NEGATIVE); OCCULT BLOOD,URINE SMALL (NEGATIVE); PROTEIN,URINE NEGATIVE (NEGATIVE); UROBILINOGEN,URINE 0.2 (NORMAL) E.U./dL (NORMAL)
[2018-08-23 22:55] LABS: CLARITY,URINE CLEAR (CLEAR); HCG UR QUAL NEGATIVE
[2018-08-23 23:04] LABS: BACTERIA,URINE None Seen /HPF (None Seen); RBC,URINE None Seen /HPF (0-5); SQUAMOUS EPITHELIAL CELL,UR RARE Squamous (<= Few)
[2018-08-23 23:53] LABS: BASOPHILS % (AUTO) 0.5 %; EOSINOPHILS # (AUTO) 0.1 10^3/uL (0.0-0.7); HGB - HEMOGLOBIN 12.2 g/dL (12.0-16.0); LYMPHOCYTES # (AUTO) 3.4 10^3/uL (1.5-3.5); LYMPHOCYTES % (AUTO) 31.7 %; MEAN CORPUSCULAR HEMOGLOBIN 25.8 pg (27.0-31.0); MEAN CORPUSCULAR HGB CONC 32.9 g/dL (32.0-36.0); MEAN CORPUSCULAR VOLUME 78.4 fL (81.0-99.0); MEAN PLATELET VOLUME 8.4 fL (7.9-10.8); MONOCYTES # (AUTO) 0.8 10^3/uL (0.0-1.0); MONOCYTES % (AUTO) 7.5 %; NEUTROPHILS # (AUTO) 6.4 10^3/uL (1.5-6.6); NEUTROPHILS % (AUTO) 59.3 %; PLT - PLATELET COUNT 239 10^3/uL (130-450); RED BLOOD COUNT 4.74 10^6/uL (4.20-5.40); RED CELL DISTRIBUTION WIDTH 14.2 % (12.0-15.0); WHITE BLOOD COUNT 10.8 x10^3/uL (4.8-10.8)
[2018-08-24 00:01] LABS: CREATININE 0.7 mg/dL (0.4-1.0)
--- NOTE | 2018-08-24 00:21 | CT Report ---
Reason: Left flank pain, hematuria Procedure Date: 08/24/2018 Accession Number: [id number] / [id number] Procedure: CT - Abdomen/Pelvis W/O CPT Code: FULL RESULT: EXAM: CT ABDOMEN AND PELVIS (CT KUB) EXAM DATE: 08/24/2018 12:00 AM. CLINICAL HISTORY: Left flank pain, hematuria. COMPARISONS: ABDOMEN/PELVIS W/O 01/21/2018 11:27 AM. TECHNIQUE: Routine axial helical CT imaging was performed through the abdomen and pelvis without IV contrast. Reconstructions: Coronal and sagittal. In accordance with CT protocol optimization, one or more of the following dose reduction techniques were utilized for this exam: automated exposure control, adjustment of mA and/or KV based on patient size, or use of iterative reconstructive technique. FINDINGS: Lung Bases: Unremarkable. Right Kidney/Ureter: No stones, hydronephrosis, or hydroureter. No perinephric fat stranding. Left Kidney/Ureter: No stones, hydronephrosis, or hydroureter. No perinephric fat stranding. Other Solid Organs: Fatty liver. Spleen, pancreas, and adrenals show no focal abnormalities on this noncontrast examination. Gallbladder/Bile Ducts: Unremarkable. Peritoneal Cavity: No bowel obstruction seen. No diverticulitis. Moderate stool in the colon, right greater than left. No free air or free fluid. Normal sized mesenteric lymph nodes. Appendix appears normal. Pelvic Organs: Relatively decompressed urinary bladder with possible slight wall thickening. Visualized pelvic organs are otherwise unremarkable. Vasculature: Unremarkable. Other: None. IMPRESSION: 1. No urolithiasis seen. 2. Possible slight urinary bladder wall thickening. This may simply be due to nondistention. Correlate with urinalysis. 3. Fatty liver. RADIA
[2018-08-24] MEDS ORDERED: KETOROLAC 15 MG/ML VIAL IM STA (00:28)
[2018-08-24] MEDS ORDERED: ACETAMINOPHEN 325 MG TABLET PO STA (00:28)
[2018-08-24] MEDS ORDERED: PHENAZOPYRIDINE 100 MG TABLET PO STA (00:39)
--- NOTE | 2018-08-24 00:41 | ED Physician Documentation ---
PD HPI FEMALE - Stated complaint Stated Complaint: FEMALE - Chief complaint Chief Complaint: UTI - History obtained from History obtained from: Patient - History of Present Illness Timing - onset: How many days ago (2) Timing - duration: Days (2) Timing - details: Gradual onset Pain level max: 3 Pain level max: 3 Severity Comments: mild Associated symptoms: Other (Flank pain) Review of Systems Ten Systems: 10 systems reviewed and negative Constitutional: reports: Reviewed and negative Eyes: reports: Reviewed and negative Ears: reports: Reviewed and negative Nose: reports: Reviewed and negative Throat: reports: Reviewed and negative Cardiac: reports: Reviewed and negative Respiratory: reports: Reviewed and negative GI: reports: Reviewed and negative : reports: Reviewed and negative Skin: reports: Reviewed and negative Musculoskeletal: reports: Reviewed and negative Neurologic: reports: Reviewed and negative Psychiatric: reports: Reviewed and negative Endocrine: reports: Reviewed and negative Immunocompromised: reports: Reviewed and negative PD PAST MEDICAL HISTORY - Past Medical History Cardiovascular: None Respiratory: Asthma Endocrine/Autoimmune: None GI: None : None HEENT: None Psych: Anxiety Musculoskeletal: None Derm: None Other Past Medical History: Reviewed and not pertinent - Past Surgical History Past Surgical History: Yes Ortho: Carpal Tunnel surgery, 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, 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 Other past surgical history: Reviewed and not pertinent - Present Medications Home Medications: Ambulatory Orders Medication Instructions Recorded Confirmed Alprazolam [Xanax] 0.5 mg PO BID PRN #10 tablet 03/06/18 08/24/18 Naproxen [Naprosyn] 500 mg PO BID PRN 30 Days #30 05/24/18 08/24/18 tablet Phenazopyridine HCl [Pyridium] 200 mg PO TID PRN #6 tablet 08/24/18 - Allergies Allergies/Adverse Reactions: Allergies Allergy/AdvReac Type Severity Reaction Status Date / Time Penicillins Allergy Severe Rash Verified 08/23/18 22:32 Underpadding from last CTR AdvReac Severe Rash Uncoded 05/24/18 17:19 - Social History Does the pt smoke?: No Smoking Status: Never smoker Does the pt drink ETOH?: No Does the pt have substance abuse?: No - Family History Family history: reports: Other (Reviewed and not pertinent) - Immunizations Immunizations are current?: Yes - POLST Patient has POLST: No PD ED PE NORMAL - Vitals Vital signs reviewed: Yes - General General: Alert and oriented X 3, No acute distress - HEENT HEENT: PERRL - Neck Neck: Supple, no meningeal sign - Cardiac Cardiac: RRR, No murmur - Respiratory Respiratory: Clear bilaterally - Abdomen Abdomen: Normal bowel sounds, Soft, Non tender, Non distended - Derm Derm: Warm and dry - Extremities Extremities: No deformity - Neuro Neuro: Alert and oriented X 3 - Psych Psych: Normal mood, Normal affect Results - Vitals Vitals: Vital Signs - 24 hr 08/23/18 08/24/18 22:29 00:49 Temperature 36.4 C L Heart Rate 104 H 80 Respiratory 16 17 Rate Blood Pressure 152/89 H 131/79 H O2 Saturation 99 98 Oxygen O2 Source Room air - Labs Labs: Laboratory Tests 08/23/18 08/23/18 08/23/18 22:40 23:45 23:45 WBC 10.8 RBC 4.74 Hgb 12.2 Hct 37.1 MCV 78.4 L MCH 25.8 L MCHC 32.9 RDW 14.2 Plt Count 239 MPV 8.4 Neut # (Auto) 6.4 Lymph # (Auto) 3.4 Titus # (Auto) 0.8 Eos # (Auto) 0.1 Baso # (Auto) 0.0 Absolute Nucleated RBC 0.00 Nucleated RBC % 0.0 Sodium 136 Potassium 3.5 Chloride 102 Carbon Dioxide 27 Anion Gap 7.0 BUN 14 Creatinine 0.7 Estimated GFR (MDRD) 98 Glucose 112 H Calcium 9.0 Urine Color COLORLESS Urine Clarity CLEAR Urine pH 7.0 Ur Specific [place] <=1.005 Urine Protein NEGATIVE Urine Glucose (UA) NEGATIVE Urine Ketones NEGATIVE Urine Occult Blood SMALL H Urine Nitrite NEGATIVE Urine Bilirubin NEGATIVE Urine Urobilinogen 0.2 (NORMAL) Ur Leukocyte Esterase NEGATIVE Urine RBC None Seen Urine WBC 0-3 Ur Squamous Epith Cells RARE Squamous Urine Bacteria None Seen Ur Microscopic Review INDICATED Urine Culture Comments NOT INDICATED Urine HCG, Qual NEGATIVE - Rads (name of study) CT Abd pelv Radiology: Final report received (WNL) PD MEDICAL DECISION MAKING - ED course Complexity details: reviewed results, re-evaluated patient, considered differential, d/w patient ED course: 33-year-old female with history of kidney stones presents with hematuria, dysuria, left flank pain. Urinalysis notable for microscopic hematuria. CT abdomen pelvis showed no stone. Consistent with passed stone or possibly vaginitis. Departure - Departure Disposition: 01 Home, Self Care Clinical Impression: Flank pain, Dysuria Hematuria Qualifiers: Hematuria type: other microscopic Qualified Code(s): R31.29 - Other microscopic hematuria Condition: Good Instructions: ED Dysuria Uncertain Cause Ch, ED Flank Pain Uncertain Cause Follow-Up: Max Dorman MD [Primary Care Provider] - Prescriptions: Phenazopyridine HCl [Pyridium] 200 mg PO TID PRN #6 tablet PRN Reason: dysuria Comments: You may try [id number] treatments for vaginitis. Take 1000 mg 3 times daily for pain. Follow-up with PCP within 1-2 days. Return with worsening symptoms. Discharge Date/Time: 08/24/18 00:50
[2018-08-24 00:50] VITALS: BP 131/79
== END 2018-08-24 00:50 | disposition home or self-care (01) ==
LOC: ED 22:28
DX: R30.0 Dysuria (principal); R31.29 Other microscopic hematuria; R10.32 Left lower quadrant pain; Z87.442 Personal history of urinary calculi
CPT/HCPCS: 36415; 74176; 80048; 81001; 81025; 85025; 96372; 99283; A9270; 81003; 87086

== ENCOUNTER 2018-09-28 11:46 | Outpatient (CLI) | payer BC ==
--- NOTE | 2018-09-28 16:12 | XRAY Report ---
Reason: URI-ACUTE/ASTHMA Procedure Date: 09/28/2018 Accession Number: [id number] / [id number] Procedure: WCP - Chest 2 View X-Ray CPT Code: 43672 FULL RESULT: EXAM: CHEST RADIOGRAPHY EXAM DATE: 09/28/2018 12:00 PM. CLINICAL HISTORY: Upper respiratory infection-acute/asthma. COMPARISON: Chest 2 view PA/LAT 10/21/2016 12:38 AM. TECHNIQUE: 2 views. FINDINGS: Lungs/Pleura: No focal opacities evident. No pleural effusion. No pneumothorax. Normal volumes. Mediastinum: Heart and mediastinal contours are unremarkable. Other: None. IMPRESSION: Normal 2-view chest radiography. RADIA
== END 2018-09-28 11:47 | disposition home or self-care (01) ==
LOC: DI.WCP 11:46
PROVIDERS: ATTEND Family Medicine
DX: J06.9 Acute upper respiratory infection, unspecified (principal); J45.909 Unspecified asthma, uncomplicated
CPT/HCPCS: 71046

== ENCOUNTER 2018-11-24 11:16 | Emergency (ER) | payer BC ==
[2018-11-24] MEDS ORDERED: ACETAMINOPHEN 325 MG TABLET PO STA (12:18)
[2018-11-24] MEDS ORDERED: DEXAMETHASONE 10 MG/ML VIAL PO STA (12:20)
[2018-11-24] MEDS ORDERED: CHERRY SYRUP 10 ML UDC PO ONE (12:20)
--- NOTE | 2018-11-24 12:30 | ED Physician Documentation ---
History of Present Illness - Stated complaint Stated Complaint: LT SIDE FACE SWOLLEN - Chief complaint Chief Complaint: Heent - History obtained from History obtained from: Patient - History of Present Illness Timing: Last night Pain level max: 7 Pain level now: 7 - Additonal information Additional information: 33-year-old female presents to the emergency department with a sore throat since last night. Complains of swelling to the left side of the face as well. No fevers. No rhinorrhea or congestion. No cough. Worse with swallowing. 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 - Present Medications Home Medications: Ambulatory Orders Medication Instructions Recorded Confirmed Alprazolam [Xanax] 0.5 mg PO BID PRN #10 tablet 03/06/18 08/24/18 - Allergies Allergies/Adverse Reactions: Allergies Allergy/AdvReac Type Severity Reaction Status Date / Time Penicillins Allergy Severe Rash Verified 08/23/18 22:32 Underpadding from last CTR AdvReac Severe Rash Uncoded 05/24/18 17:19 - Social History Does the pt smoke?: No Smoking Status: Never smoker Does the pt drink ETOH?: No Does the pt have substance abuse?: No - Immunizations Immunizations are current?: Yes - POLST Patient has POLST: No PD ED PE NORMAL - Vitals Vital signs reviewed: Yes - General General: Alert and oriented X 3, No acute distress - HEENT HEENT: PERRL, Ears normal, Moist mucous membranes, Other (Mild posterior pharyngeal erythema without tonsillar exudates. No trismus. Normal phonation.) - Neck Neck: Supple, no meningeal sign, Other (Cervical lymphadenopathy present, left greater than right) - Cardiac Cardiac: RRR - Respiratory Respiratory: No respiratory distress, Clear bilaterally - Derm Derm: Warm and dry - Neuro Neuro: Alert and oriented X 3 Results - Vitals Vitals: Vital Signs - 24 hr 11/24/18 11/24/18 11:22 12:42 Temperature 36.8 C Heart Rate 86 72 Respiratory 18 16 Rate Blood Pressure 140/108 H 151/92 H O2 Saturation 99 100 Oxygen O2 Source Room air - Labs Labs: Laboratory Tests 11/24/18 12:08 Group A Strep Rapid Negative PD MEDICAL DECISION MAKING - ED course Complexity details: reviewed results, considered differential, d/w patient ED course: Patient with what appears to be a viral pharyngitis. Rapid strep is negative. No tonsillar exudates. Given dexamethasone. Will utilize Motrin and Tylenol as needed for pain at home. We will continue supportive care and follow-up with her doctor. No evidence of retropharyngeal or parapharyngeal abscess. No evidence of peritonsillar abscess. Patient counseled regarding signs and symptoms for which I believe and urgent re-evaluation would be necessary. Patient with good understanding of and agreement to plan and is comfortable going home at this time This document was made in part using voice recognition software. While efforts are made to proofread this document, sound alike and grammatical errors may occur. Departure - Departure Disposition: 01 Home, Self Care Clinical Impression: Viral pharyngitis Condition: Good Instructions: ED Pharyngitis Viral Follow-Up: Max Dorman MD [Primary Care Provider] - Within 1 week Comments: Drink plenty of fluids and rest. Return if you worsen. Your rapid strep test is negative today. A backup throat culture will be sent and if this is positive we will call you to place you on antibiotics. Forms: Activity restrictions Discharge Date/Time: 11/24/18 12:42
[2018-11-24 12:43] VITALS: BP 151/92
== END 2018-11-24 12:42 | disposition home or self-care (01) ==
LOC: ED 11:16
DX: J02.8 Acute pharyngitis due to other specified organisms (principal); B97.89 Other viral agents as the cause of diseases classified elsewhere
CPT/HCPCS: 87070; 87430; 99283; A9270

== ENCOUNTER 2018-12-14 17:15 | Emergency (ER) | payer BC ==
[2018-12-14] MEDS ORDERED: ALBUTEROL NEB 2.5 MG/3 ML INH STA (19:45)
[2018-12-14] MEDS ORDERED: predniSONE 20 MG TABLET PO STA (19:46)
--- NOTE | 2018-12-14 19:52 | ED Physician Documentation ---
PD HPI URI - Stated complaint Stated Complaint: COUGHING UP BLOOD - Chief complaint Chief Complaint: Resp - History obtained from History obtained from: Patient - History of Present Illness Timing - onset: How many days ago (several) Timing duration: Days Timing details: Gradual onset Pain level max: 4 Pain level now: 3 Associated symptoms: Fever, Chills, Nasal congestion, Rhinorrhea, Productive cough, Hemoptysis (states small amount of blood in her sputum today.), Dyspnea ( wheezing) Contributing factors: Sick contact, COPD / asthma Improves by: Rest, MDI/nebulizer Worsened by: Activity, Breathing Recently seen: Not recently seen Review of Systems Nose: reports: Rhinorrhea / runny nose, Congestion Throat: denies: Sore throat GI: denies: Vomiting : denies: Now EGA Skin: denies: Rash PD PAST MEDICAL HISTORY - Past Medical History Cardiovascular: None Respiratory: Asthma Endocrine/Autoimmune: None GI: None : None HEENT: None Psych: Anxiety Musculoskeletal: None Derm: None - Past Surgical History Past Surgical History: Yes Ortho: Carpal Tunnel surgery, 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, 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 - Present Medications Home Medications: Ambulatory Orders Medication Instructions Recorded Confirmed Alprazolam [Xanax] 0.5 mg PO BID PRN #10 tablet 18 08/24/18 Acetaminophen/Cod 300/30 [Tylenol 1 each PO Q4-6H PRN #7 tablet 12/14/18 #3] predniSONE [Deltasone] 10 mg PO [id number] #42 tab 12/14/18 - Allergies Allergies/Adverse Reactions: Allergies Allergy/AdvReac Type Severity Reaction Status Date / Time Penicillins Allergy Severe Rash Verified 12/14/18 17:31 Underpadding from last CTR AdvReac Severe Rash Uncoded 12/14/18 17:31 - Social History Does the pt smoke?: No Smoking Status: Never smoker Does the pt drink ETOH?: No Does the pt have substance abuse?: No - Immunizations Immunizations are current?: Yes - POLST Patient has POLST: No PD ED PE NORMAL - Vitals Vital signs reviewed: Yes - General General: Alert and oriented X 3, No acute distress, Well developed/nourished - HEENT HEENT: PERRL, Ears normal, Moist mucous membranes, Pharynx benign - Neck Neck: Supple, no meningeal sign - Cardiac Cardiac: RRR - Respiratory Respiratory: No respiratory distress, Other (mild wheezing B) - Abdomen Abdomen: Soft, Non tender, Non distended - Derm Derm: Warm and dry, No rash - Neuro Neuro: Alert and oriented X 3 - Psych Psych: Normal mood, Normal affect Results - Vitals Vitals: Oxygen O2 Source Room air - Rads (name of study) cxr Radiology: Prelim report reviewed, EMP read contemporaneously, See rad report (Subtle interstitial prominence, possibly bronchitis or interstitial pneumonitis, most likely viral or mycoplasma) PD MEDICAL DECISION MAKING - ED course Complexity details: reviewed results, re-evaluated patient, considered differential, d/w patient ED course: 33-year-old female with viral URI and asthma. Will place on steroids for home. Given a breathing treatment steroids here. We will follow-up with her doctor for further care. No pneumonia on chest x-ray. Patient counseled regarding signs and symptoms for which I believe and urgent re-evaluation would be necessary. Patient with good understanding of and agreement to plan and is comfortable going home at this time This document was made in part using voice recognition software. While efforts are made to proofread this document, sound alike and grammatical errors may occur. Departure - Departure Disposition: 01 Home, Self Care Clinical Impression: URI (upper respiratory infection) Qualifiers: URI type: unspecified viral URI Qualified Code(s): J06.9 - Acute upper respiratory infection, unspecified Asthma with acute exacerbation in adult Qualifiers: Asthma severity: unspecified severity Asthma persistence: unspecified Qualified Code(s): J45.901 - Unspecified asthma with (acute) exacerbation Condition: Good Instructions: ED URI Viral W Wheezing Follow-Up: Max Dorman MD [Primary Care Provider] - Within 1 week Prescriptions: Acetaminophen/Cod 300/30 [Tylenol #3] 1 each PO Q4-6H PRN #7 tablet PRN Reason: pain predniSONE [Deltasone] 10 mg PO [id number] #42 tab Comments: Return if you worsen. Drink plenty fluids and rest. Forms: Activity restrictions Discharge Date/Time: 12/14/18 20:35
--- NOTE | 2018-12-14 20:00 | XRAY Report ---
Reason: cough Procedure Date: 12/14/2018 Accession Number: [id number] / [id number] Procedure: XR - Chest 2 View X-Ray CPT Code: 29068 FULL RESULT: EXAM: CHEST RADIOGRAPHY EXAM DATE: 12/14/2018 07:33 PM. CLINICAL HISTORY: Cough. COMPARISON: CHEST 2 VIEW 09/28/2018 11:42 AM CHEST 2 VIEW PA/LAT 10/21/2016 12:38 AM. TECHNIQUE: 2 views. FINDINGS: Lungs/Pleura: Subtle increased prominence of lung markings in the bases with minimal peribronchial cuffing. No consolidation, effusion, or pneumothorax. Mediastinum: Heart and mediastinal contours are unremarkable. Other: None. IMPRESSION: Subtle interstitial prominence, possibly bronchitis or an interstitial pneumonitis, most likely viral or mycoplasmal. RADIA
[2018-12-14] MEDS ORDERED: ACETAMINOPHEN/CODEINE 300 MG/30 MG TABLET PO STA (20:22)
[2018-12-14 20:36] VITALS: BP 136/92
== END 2018-12-14 20:35 | disposition home or self-care (01) ==
LOC: ED 17:15
DX: J06.9 Acute upper respiratory infection, unspecified (principal); J45.901 Unspecified asthma with (acute) exacerbation
CPT/HCPCS: 71046; 94640; 99283; A9270; J7512

== ENCOUNTER 2019-02-12 07:20 | Outpatient (CLI) | payer OTHER, BC ==
--- NOTE | 2019-02-12 13:03 | MRI Report ---
Reason: ROTATOR CUFF SYNDROME, LEFT Procedure Date: 02/12/2019 Accession Number: [id number] / [id number] Procedure: MRI - Shoulder LT W/O CPT Code: FULL RESULT: EXAM: LEFT SHOULDER MRI WITHOUT CONTRAST EXAM DATE: 02/12/2019 08:09 AM. CLINICAL HISTORY: Rotator cuff syndrome, left. COMPARISON: Radiographs 05/24/2018. TECHNIQUE: Multiplanar, multisequence T1-weighted and fluid-sensitive sequences of the shoulder without contrast. Other: None. FINDINGS: Some sequences mildly degraded by patient motion and artifact. Acromioclavicular Region: The acromion is type II with mild anterior downsloping. Minimal degenerative change at the acromioclavicular joint with subtle bone marrow edema and small inferiorly directed osteophytes. The coracoacromial and coracoclavicular ligaments are intact. Mild subacromial/subdeltoid bursal fluid. Glenohumeral Region: No subluxation. No effusion or loose bodies. The articular cartilage is unremarkable. The glenohumeral ligaments and joint capsule are unremarkable. Bone Marrow: No fracture or bone lesion. Mild reactive cyst at the greater tuberosity. Labrum: Mildly limited evaluation due to motion and artifact. Mild blunting and irregularity at the free edge and undersurface posterior superior aspect. Musculature/Rotator Cuff: Mild supraspinatus tendinopathy with a shallow bursal surface and articular surface fraying. Mild infraspinatus tendinopathy. Teres minor tendon intact. Minimal subscapularis tendinopathy. No edema or fatty atrophy. Biceps Tendon: The long head of the biceps tendon and biceps alma are intact. Other: The subcutaneous tissues are unremarkable. IMPRESSION: 1. Mild supraspinatus tendinopathy with shallow bursal surface and articular surface fraying. 2. Minimal infraspinatus and subscapularis tendinopathy. 3. Degenerative fraying and possible subtle free edge and undersurface tearing posterior superior labrum. 4. Minimal subacromial subdeltoid bursitis. 5. Anterior downsloping of the acromion and acromioclavicular osteophytes may contribute to symptoms of impingement. RADIA
== END 2019-02-12 07:21 | disposition home or self-care (01) ==
LOC: DI 07:20
PROVIDERS: ATTEND Physician Assistant
DX: M75.102 Unspecified rotator cuff tear or rupture of left shoulder, not specified as traumatic (principal); M67.814 Other specified disorders of tendon, left shoulder; M75.52 Bursitis of left shoulder; M25.712 Osteophyte, left shoulder

== ENCOUNTER 2019-02-13 03:00 | Emergency (ER) | payer OTHER, BC ==
[2019-02-13] MEDS ORDERED: CHERRY SYRUP 10 ML UDC PO ONE (04:09)
[2019-02-13] MEDS ORDERED: DEXAMETHASONE 10 MG/ML VIAL PO STA (04:09)
[2019-02-13] MEDS ORDERED: KETOROLAC 60 MG/2 ML VIAL IM STA (04:10)
--- NOTE | 2019-02-13 04:13 | ED Physician Documentation ---
PD HPI BACK INJURY - Stated complaint Stated Complaint: BK PX - History obtained from History obtained from: Patient - History of Present Illness Location: Left, Lower Type of injury: Other (lifting at work) Where injury occurred: Work Timing - onset: How many days ago (2) Timing - duration: Days (2) Timing - details: Abrupt onset, Still present Quality: Pain, Spasm, Sharp Improved by: Rest, Immobilization, Other (lidocaine patch) Worsened by: Moving, Palpating Associated symptoms: No: Fever, Weakness, Numbness, Incontinent of urine, Unable to urinate, Hematuria, Incontinent of stool Contributing factors: Work related Similar symptoms before: Diagnosis (lumbar strain) Recently seen: Not recently seen - Additional information Additional information: 34-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 Review of Systems Constitutional: denies: Fever Eyes: denies: Decreased vision Ears: denies: Ear pain Nose: denies: Rhinorrhea / runny nose, Congestion Throat: denies: Sore throat Cardiac: denies: Chest pain / pressure, Palpitations Respiratory: denies: Dyspnea GI: denies: Abdominal Pain, Nausea, Vomiting : denies: Dysuria, Frequency Skin: denies: Rash Musculoskeletal: reports: Back pain, Extremity pain. 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, 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 - Present Medications Home Medications: Ambulatory Orders Medication Instructions Recorded Confirmed Cyclobenzaprine [Flexeril] 10 mg PO TID PRN #20 tablet 02/13/19 Hydrocodone/Acetaminophen 1 - 2 each PO Q6H PRN #14 tablet 02/13/19 [Hydrocodon-Acetaminophen 5-325] - Allergies Allergies/Adverse Reactions: Allergies Allergy/AdvReac Type Severity Reaction Status Date / Time Penicillins Allergy Severe Rash Verified 02/13/19 03:07 Underpadding from last CTR AdvReac Severe Rash Uncoded 02/13/19 03:07 - Social History Does the pt smoke?: No Smoking Status: Never smoker Does the pt drink ETOH?: No Does the pt have substance abuse?: No - Immunizations Immunizations are current?: Yes - POLST Patient has POLST: No PD ED PE NORMAL - Vitals Vital signs reviewed: Yes (hypertensive) - General General: Alert and oriented X 3, Well developed/nourished, Other (appears to be in pain stading in the ED with a lido patch on her left flank. ) - HEENT HEENT: Atraumatic, PERRL, EOMI - Neck Neck: Supple, no meningeal sign - Cardiac Cardiac: RRR, No murmur - Respiratory Respiratory: No respiratory distress, Clear bilaterally - Abdomen Abdomen: Soft, Non tender - Back Back: No spinal TTP, Other (L CVA tenderness ) - Derm Derm: Normal color, Warm and dry, No rash - Extremities Extremities: No deformity, No edema, No calf tenderness / cord - Neuro Neuro: Alert and oriented X 3, crowning inspector 2-12 intact, No motor deficit, No sensory deficit, Normal speech Eye Opening: Spontaneous Motor: Obeys Commands Verbal: Oriented GCS Score: 15 - Psych Psych: Normal mood, Normal affect Results - Vitals Vitals: Vital Signs - 24 hr 02/13/19 02/13/19 03:03 05:00 Temperature 36.5 C 36.4 C L Heart Rate 100 70 Respiratory 16 16 Rate Blood Pressure 166/88 H 120/89 H O2 Saturation 94 99 Oxygen O2 Source Room air - Labs Labs: Laboratory Tests 02/13/19 04:25 Urine Color YELLOW Urine Clarity CLEAR Urine pH 6.0 Ur Specific [place] 1.020 Urine Protein NEGATIVE Urine Glucose (UA) NEGATIVE Urine Ketones NEGATIVE Urine Occult Blood SMALL H Urine Nitrite NEGATIVE Urine Bilirubin NEGATIVE Urine Urobilinogen 0.2 (NORMAL) Ur Leukocyte Esterase NEGATIVE Urine RBC 0-5 Urine WBC 0-3 Ur Squamous Epith Cells FEW Squamous Urine Bacteria Rare Ur Microscopic Review INDICATED Urine Culture Comments NOT INDICATED Urine HCG, Qual NEGATIVE PD MEDICAL DECISION MAKING - ED course Complexity details: reviewed results, re-evaluated patient, considered differential, d/w patient ED course: 34-year-old female with a strained left lumbar area is administered dexamethasone 10 mg orally and Toradol 60 mg IM. Departure - Departure Disposition: 01 Home, Self Care Clinical Impression: Lumbar strain Qualifiers: Encounter type: initial encounter Qualified Code(s): S39.012A - Strain of muscle, fascia and tendon of lower back, initial encounter Instructions: ED Sprain Strain Lumbar Follow-Up: Max Dorman MD [Primary Care Provider] - Prescriptions: Cyclobenzaprine [Flexeril] 10 mg PO TID PRN #20 tablet PRN Reason: Spasms Hydrocodone/Acetaminophen [Hydrocodon-Acetaminophen 5-325] 1 - 2 each PO Q6H PRN #14 tablet PRN Reason: pain Forms: Activity restrictions
[2019-02-13 04:29] LABS: BILIRUBIN,URINE NEGATIVE (NEGATIVE); GLUCOSE, URINE (UA) NEGATIVE (NEGATIVE); KETONES,URINE (UA) NEGATIVE (NEGATIVE); LEUKOCYTE ESTERASE, URINE NEGATIVE (NEGATIVE); NITRITE,URINE NEGATIVE (NEGATIVE); OCCULT BLOOD,URINE SMALL (NEGATIVE); PROTEIN,URINE NEGATIVE (NEGATIVE); UROBILINOGEN,URINE 0.2 (NORMAL) E.U./dL (NORMAL)
[2019-02-13 04:42] LABS: CLARITY,URINE CLEAR (CLEAR)
[2019-02-13 04:43] LABS: BACTERIA,URINE Rare /HPF (None Seen); HCG UR QUAL NEGATIVE; RBC,URINE 0-5 /HPF (0-5); SQUAMOUS EPITHELIAL CELL,UR FEW Squamous (<= Few)
[2019-02-13 05:00] VITALS: BP 120/89
== END 2019-02-13 05:09 | disposition home or self-care (01) ==
LOC: ED 03:00
DX: S39.012A Strain of muscle, fascia and tendon of lower back, initial encounter (principal); X50.0XXA Overexertion from strenuous movement or load, initial encounter; Y93.F2 Activity, caregiving, lifting; Y92.129 Unspecified place in nursing home as the place of occurrence of the external cause; Y99.0 Civilian activity done for income or pay
CPT/HCPCS: 81001; 81025; 96372; 99283; 99284; A9270; 81003; 87086

== ENCOUNTER 2019-08-07 22:10 | Emergency (ER) | payer OTHER, BC ==
[2019-08-07 22:29] VITALS: BP 152/101
[2019-08-07] MEDS ORDERED: TETANUS/DIPHTHERIA/PERTUSSIS 0.5 ML SYRINGE IM ONE (22:38)
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
== END 2019-08-07 22:48 | disposition home or self-care (01) ==
LOC: ED 22:10
DX: S51.852A Open bite of left forearm, initial encounter (principal); W50.3XXA Accidental bite by another person, initial encounter; Y93.F9 Activity, other caregiving; Y92.129 Unspecified place in nursing home as the place of occurrence of the external cause; Y99.0 Civilian activity done for income or pay; R03.0 Elevated blood-pressure reading, without diagnosis of hypertension
CPT/HCPCS: 1040M; 90471; 90715; 99281; 99282

== ENCOUNTER 2019-08-18 05:46 | Emergency (ER) | payer BC ==
[2019-08-18 05:52] VITALS: BP 168/90
--- NOTE | 2019-08-18 06:21 | ED Physician Documentation ---
History of Present Illness - Stated complaint Stated Complaint: RT HAND/FOREARM PX - Chief complaint Chief Complaint: Ext Problem - History obtained from History obtained from: Patient - History of Present Illness Timing: How many days ago (4) Improved by: rest Worsened by: movement right wrist - Additonal information Additional information: c/o right wrist pain x 4 days, no injury. pain is distinctly worse with movement. this morning at work, she had difficulty opening a door due to the pain when she tried to do so. Has been taking acetaminophen and ibuprofen without relief. 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, 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 - Present Medications Home Medications: Ambulatory Orders Medication Instructions Recorded Confirmed Cyclobenzaprine [Flexeril] 10 mg PO TID PRN #20 tablet 02/13/19 Hydrocodone/Acetaminophen 1 - 2 each PO Q6H PRN #14 tablet 02/13/19 [Hydrocodon-Acetaminophen 5-325] Hydrocodone/Acetaminophen 1 - 2 each PO Q6H PRN #14 tablet 08/18/19 [Hydrocodon-Acetaminophen 5-325] Ibuprofen [Ibu] 600 mg PO Q6HR PRN #20 tablet 08/18/19 - Allergies Allergies/Adverse Reactions: Allergies Allergy/AdvReac Type Severity Reaction Status Date / Time Penicillins Allergy Severe Rash Verified 08/18/19 05:52 sertraline [From Zoloft] Allergy Unknown Verified 08/18/19 05:52 amoxicillin AdvReac Rash Verified 08/18/19 05:52 clindamycin AdvReac Rash Verified 08/18/19 05:52 Underpadding from last CTR AdvReac Severe Rash Uncoded 02/13/19 03:07 - Social History Does the pt smoke?: No Smoking Status: Never smoker Does the pt drink ETOH?: No Does the pt have substance abuse?: No - Immunizations Immunizations are current?: Yes Immunizations: TDAP >10years/unknown - POLST Patient has POLST: No PD ED PE NORMAL - Vitals Vital signs reviewed: Yes - General General: Alert and oriented X 3, No acute distress, Well developed/nourished - Derm Derm: Normal color, Warm and dry, No rash - Extremities Extremities: No deformity - Neuro Neuro: No motor deficit, No sensory deficit PD ED PE EXPANDED - Extremities Extremities: Other (tenderness right wrist, radial aspect, with focal, mild swelling. (+) Tyson test (right)) Results - Vitals Vitals: Vital Signs - 24 hr 08/18/19 05:49 Temperature 36.6 C Heart Rate 91 Respiratory 14 Rate Blood Pressure 168/90 H O2 Saturation 100 Oxygen O2 Source Room air PD MEDICAL DECISION MAKING - ED course Complexity details: reviewed old records, considered differential, d/w patient ED course: H+P s/o De Quervain tendinopathy. Departure - Departure Disposition: 01 Home, Self Care Clinical Impression: De Quervain's tenosynovitis, right Condition: Good Instructions: ED De Quervain Tenosynovitis Prescriptions: Ibuprofen [Ibu] 600 mg PO Q6HR PRN #20 tablet PRN Reason: Pain Hydrocodone/Acetaminophen [Hydrocodon-Acetaminophen 5-325] 1 - 2 each PO Q6H PRN #14 tablet PRN Reason: pain Forms: Activity restrictions Discharge Date/Time: 08/18/19 06:52
[2019-08-18] MEDS ORDERED: HYDROcod/ACET 5/325 Prepack 4 PO STA (06:36)
== END 2019-08-18 06:52 | disposition home or self-care (01) ==
LOC: ED 05:46
DX: M65.4 Radial styloid tenosynovitis [de Quervain] (principal)
CPT/HCPCS: 99282; 99283

== ENCOUNTER 2019-10-13 09:58 | Emergency (ER) | payer BC ==
[2019-10-13 10:10] VITALS: BP 162/107
--- NOTE | 2019-10-13 10:36 | ED Physician Documentation ---
PD HPI OPHTHO - Stated complaint Stated Complaint: RT EYE SWELLING/PX - Chief complaint Chief Complaint: Heent - History obtained from History obtained from: Patient - History of Present Illness Timing - onset: How many days ago (2) Timing - duration: Days (2) Timing - details: Gradual onset, Still present Location: Right Quality / character: No: Itching, Burning, Aching, Throbbing Associated symptoms: Redness, Swelling. No: Discharge, FB sensation Contributing factors: No: Exposed to conjunctivitis, Recent URI, Chemical exposure, acid Similar symptoms before: Has not had sx before Recently seen: Clinic - Additional information Additional information: Previously well 32-year-old female is developed a swelling to the right lower eyelid she went into her regular doctor yesterday with this and was recommended to have conservative measures. She woke up this morning with more swelling to her eye some pain and some redness.She is not having trouble with her vision does not have a foreign body sensation. Review of Systems Constitutional: denies: Fever, Chills Eyes: reports: Irritation. 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, 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 - Present Medications Home Medications: Ambulatory Orders Medication Instructions Recorded Confirmed Cyclobenzaprine [Flexeril] 10 mg PO TID PRN #20 tablet 02/13/19 Hydrocodone/Acetaminophen 1 - 2 each PO Q6H PRN #14 tablet 02/13/19 [Hydrocodon-Acetaminophen 5-325] Hydrocodone/Acetaminophen 1 - 2 each PO Q6H PRN #14 tablet 08/18/19 [Hydrocodon-Acetaminophen 5-325] Ibuprofen [Ibu] 600 mg PO Q6HR PRN #20 tablet 08/18/19 Neomycin/Poly/Dex Ophth Drops 1 drops RIGHTEYE QID #1 bottle 10/13/19 [Maxitrol Ophth Drops] - Allergies Allergies/Adverse Reactions: Allergies Allergy/AdvReac Type Severity Reaction Status Date / Time Penicillins Allergy Severe Rash Verified 10/13/19 10:08 sertraline [From Zoloft] Allergy Unknown Verified 10/13/19 10:08 amoxicillin AdvReac Rash Verified 10/13/19 10:08 clindamycin AdvReac Rash Verified 10/13/19 10:08 Underpadding from last CTR AdvReac Severe Rash Uncoded 10/13/19 10:08 - Social History Does the pt smoke?: No Smoking Status: Never smoker Does the pt drink ETOH?: No Does the pt have substance abuse?: No - Immunizations Immunizations are current?: Yes Immunizations: TDAP >10years/unknown - POLST Patient has POLST: No PD ED PE NORMAL - Vitals Vital signs reviewed: Yes (Hypertensive marked) - General General: Alert and oriented X 3, No acute distress, Well developed/nourished - HEENT HEENT: Atraumatic, PERRL, EOMI, Other (The right lower eyelid is erythematous there is no mass associated with this there is some swelling to the lower lid consistent with a stye to the right lower eyelid. There is no injection to the sclera and no abnormality to the globe itself.) - Neck Neck: Supple, no meningeal sign, No bony TTP - Respiratory Respiratory: No respiratory distress - Neuro Neuro: Alert and oriented X 3, song plugger 2-12 intact, No motor deficit, No sensory de ficit, Normal speech Eye Opening: Spontaneous Motor: Obeys Commands Verbal: Oriented GCS Score: 15 - Psych Psych: Normal mood, Normal affect Results - Vitals Vitals: Vital Signs - 24 hr 10/13/19 10:08 Temperature 37.2 C Heart Rate 98 Respiratory 18 Rate Blood Pressure 162/107 H O2 Saturation 99 Oxygen O2 Source Room air PD MEDICAL DECISION MAKING - ED course Complexity details: considered differential, d/w patient ED course: 34-year-old female with a stye to the right lower eyelid is placed onto Maxitrol ophthalmic drops and instructed use a warm compress. Departure - Departure Disposition: 01 Home, Self Care Clinical Impression: Sty, internal Qualifiers: Laterality: right Eyelid: lower Qualified Code(s): H00.022 - Hordeolum internum right lower eyelid Condition: Stable Instructions: ED [place] Follow-Up: Max Dorman MD [Primary Care Provider] - Prescriptions: Neomycin/Poly/Dex Ophth Drops [Maxitrol Ophth Drops] 1 drops ALEX ONEYDAD #1 bottle Comments: Today in the Emergency Department your blood pressure was elevated. This can happen from the stress of the visit itself, from a current illness or circumstance or from uncontrolled hypertension. If you take blood pressure medications take your usual mediations, have your blood pressure re-checked in an appropriate setting and follow up any elevation with your primary care doctor.
== END 2019-10-13 10:48 | disposition home or self-care (01) ==
LOC: ED 09:58
DX: H00.022 Hordeolum internum right lower eyelid (principal)
CPT/HCPCS: 99282; 99284

== ENCOUNTER 2019-12-18 19:33 | Emergency (ER) | payer BC ==
[2019-12-18 19:57] VITALS: BP 151/102
[2019-12-18] MEDS: predniSONE 20 MG TABLET PO STA (20:31)
--- NOTE | 2019-12-18 20:31 | ED Physician Documentation ---
History of Present Illness - Stated complaint Stated Complaint: SOA/ASTHMA - Chief complaint Chief Complaint: Resp - History obtained from History obtained from: Patient - History of Present Illness Timing: How many weeks ago (1-2) Pain level max: 0 Pain level now: 0 - Additonal information Additional information: 34-year-old female presents to the emergency department stating that her asthma has been worsening over the past week or so. Increased pollen in the area, multiple cats at home and her Cuban chandra's are shedding. She occasionally takes Benadryl. Does not feel like her inhaler is helping. Is not currently on steroids. She is not , breast-feeding or trying to become . Review of Systems Ten Systems: 10 systems reviewed and negative Constitutional: denies: Fever, Chills Throat: denies: Sore throat Cardiac: denies: Chest pain / pressure, Palpitations Respiratory: reports: Dyspnea, Cough (Mild), Wheezing GI: denies: Abdominal Pain, Nausea, Vomiting, Diarrhea : denies: Now EGA Skin: denies: Rash Musculoskeletal: denies: Neck pain, Back pain Neurologic: denies: Headache PD PAST MEDICAL HISTORY - Past Medical History Past Medical History: Yes Cardiovascular: None Respiratory: Asthma Endocrine/Autoimmune: None GI: None : None HEENT: None Psych: Anxiety Musculoskeletal: None Derm: None - Past Surgical History Past Surgical History: Yes Ortho: Carpal Tunnel surgery, 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, 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 - Present Medications Home Medications: Ambulatory Orders Medication Instructions Recorded Confirmed Cyclobenzaprine [Flexeril] 10 mg PO TID PRN #20 tablet 02/13/19 Hydrocodone/Acetaminophen 1 - 2 each PO Q6H PRN #14 tablet 02/13/19 [Hydrocodon-Acetaminophen 5-325] Hydrocodone/Acetaminophen 1 - 2 each PO Q6H PRN #14 tablet 08/18/19 [Hydrocodon-Acetaminophen 5-325] Ibuprofen [Ibu] 600 mg PO Q6HR PRN #20 tablet 08/18/19 Neomycin/Poly/Dex Ophth Drops 1 drops RIGHTEYE QID #1 bottle 10/13/19 [Maxitrol Ophth Drops] Ipratropium/Albuterol [Duoneb] 3 ml INH Q6H PRN #30 neb 12/18/19 predniSONE [Deltasone] 10 mg PO [id number] #42 tab 12/18/19 - Allergies Allergies/Adverse Reactions: Allergies Allergy/AdvReac Type Severity Reaction Status Date / Time Penicillins Allergy Severe Rash Verified 12/18/19 19:58 sertraline [From Zoloft] Allergy Unknown Verified 12/18/19 19:58 amoxicillin AdvReac Rash Verified 12/18/19 19:58 clindamycin AdvReac Rash Verified 12/18/19 19:58 Underpadding from last CTR AdvReac Severe Rash Uncoded 10/13/19 10:08 - Social History Does the pt smoke?: No Smoking Status: Never smoker Does the pt drink ETOH?: No Does the pt have substance abuse?: No - Immunizations Immunizations are current?: Yes Immunizations: TDAP >10years/unknown - POLST Patient has POLST: No PD ED PE NORMAL - Vitals Vital signs reviewed: Yes - General General: Alert and oriented X 3, No acute distress, Well developed/nourished - HEENT HEENT: Moist mucous membranes - Neck Neck: Supple, no meningeal sign - Cardiac Cardiac: RRR, Strong equal pulses - Respiratory Respiratory: No respiratory distress, Other (Diminished breath sounds bilaterally with wheezing) - Abdomen Abdomen: Soft, Non tender, Non distended - Derm Derm: Warm and dry, No rash - Extremities Extremities: No edema - Neuro Neuro: Alert and oriented X 3 - Psych Psych: Normal mood, Normal affect Results - Vitals Vitals: Vital Signs - 24 hr 12/18/19 19:54 Temperature 36.7 C Heart Rate 101 H Respiratory 14 Rate Blood Pressure 151/102 H O2 Saturation 99 Oxygen O2 Source Room air PD MEDICAL DECISION MAKING - ED course Complexity details: reviewed results, re-evaluated patient, considered differential, d/w patient ED course: 34-year-old female presents to the emergency department with what appears to be allergies and an asthma exacerbation. She is well-appearing, nontoxic. Afebrile. No hypoxia or respiratory distress. We will place her on steroids for home. Patient counseled regarding signs and symptoms for which I believe and urgent re-evaluation would be necessary. Patient with good understanding of and agreement to plan and is comfortable going home at this time This document was made in part using voice recognition software. While efforts are made to proofread this document, sound alike and grammatical errors may occur. Departure - Departure Disposition: 01 Home, Self Care Clinical Impression: Asthma Condition: Good Instructions: ED Reactive Airway Disease Follow-Up: Max Dorman MD [Primary Care Provider] - Within 1 week Prescriptions: Ipratropium/Albuterol [Duoneb] 3 ml INH Q6H PRN #30 neb PRN Reason: Dyspnea predniSONE [Deltasone] 10 mg PO [id number] #42 tab Comments: Use the medications as prescribed. Follow-up with your doctor for further care. You can also take Zyrtec or Claritin at home. Discharge Date/Time: 12/18/19 21:07
[2019-12-18] MEDS: IPRATROPIUM/ALBUTEROL 3 ML NEB INH STA (20:44)
== END 2019-12-18 21:07 | disposition home or self-care (01) ==
LOC: ED 19:33
DX: J45.909 Unspecified asthma, uncomplicated (principal)
CPT/HCPCS: 94640; 99283; 99284; J7512

== ENCOUNTER 2019-12-26 14:09 | Outpatient (CLI) | payer BC ==
[2019-12-26 17:56] LABS: BASOPHILS # (AUTO) 0.1 10^3/uL (0.0-0.1); BASOPHILS % (AUTO) 0.4 %; HGB - HEMOGLOBIN 13.1 g/dL (12.0-16.0); LYMPHOCYTES % (AUTO) 15.2 %; MEAN CORPUSCULAR HGB CONC 32.1 g/dL (32.0-36.0); MEAN PLATELET VOLUME 11.6 fL (7.9-10.8); MONOCYTES # (AUTO) 0.5 10^3/uL (0.0-1.0); MONOCYTES % (AUTO) 3.8 %; NEUTROPHILS # (AUTO) 10.5 10^3/uL (1.5-6.6); NEUTROPHILS % (AUTO) 79.8 %; PLT - PLATELET COUNT 315 10^3/uL (130-450); RED BLOOD COUNT 5.23 10^6/uL (4.20-5.40); RED CELL DISTRIBUTION WIDTH 13.7 % (12.0-15.0); WHITE BLOOD COUNT 13.1 x10^3/uL (4.8-10.8)
[2019-12-26 18:02] LABS: ALBUMIN 4.4 g/dL (3.2-5.5); ALBUMIN/GLOBULIN RATIO 1.3 (1.0-2.2); ALKALINE PHOSPHATASE 88 IU/L (42-121); ALT ALANINE AMINOTRANSFERASE 35 IU/L (10-60); AST ASPARTATE AMINOTRANSFERASE 24 IU/L (10-42); BILIRUBIN,TOTAL 0.8 mg/dL (0.2-1.0); BUN - BLOOD UREA NITROGEN 10 mg/dL (6-20); CALCIUM 9.4 mg/dL (8.5-10.3); CARBON DIOXIDE - CO2 23 mmol/L (21-32); CHLORIDE 101 mmol/L (101-111); CHOL/HDL RATIO 3.8 (<4.4); CHOLESTEROL 217 mg/dL; CREATININE 0.7 mg/dL (0.4-1.0); GLUCOSE 191 mg/dL (70-100); HDL CHOLESTEROL 57 mg/dL; LDL CHOLESTEROL,CALCULATED 142 mg/dL; LDL/HDL RATIO 2.5 (<4.4); SODIUM 135 mmol/L (135-145); TOTAL PROTEIN 7.9 g/dL (6.7-8.2); VLDL CHOLESTEROL 18 mg/dL
[2019-12-26 18:07] LABS: CREATININE,URINE 51.2 mg/dL; MICROALBUM/CREATININE RATIO,UR 263.7 ug/mg (<30.0); MICROALBUMIN,URINE 13.5 mg/dL (0-300.0)
[2019-12-26 18:08] LABS: HB2 TOTAL 13.7 g/dL; HEMOGLOBIN A1C 0.94 g/dL; HEMOGLOBIN A1C % 8.4 % (4.6-6.2)
== END 2019-12-26 23:59 | disposition home or self-care (01) ==
LOC: LAB.WCP 14:09
PROVIDERS: ATTEND Physician Assistant
DX: I10 Essential (primary) hypertension (principal); Z79.899 Other long term (current) drug therapy; D64.9 Anemia, unspecified; E11.9 Type 2 diabetes mellitus without complications; J45.901 Unspecified asthma with (acute) exacerbation; F32.9 Major depressive disorder, single episode, unspecified
CPT/HCPCS: 36415; 80053; 80061; 82043; 82306; 82570; 83036; 83721; 85025

== ENCOUNTER 2020-01-30 11:37 | Outpatient (CLI) | payer BC ==
[2020-01-30 11:41] LABS: BASOPHILS % (AUTO) 0.5 %; EOSINOPHILS # (AUTO) 0.1 10^3/uL (0.0-0.7); EOSINOPHILS % (AUTO) 1.9 %; HGB - HEMOGLOBIN 11.3 g/dL (12.0-16.0); LYMPHOCYTES # (AUTO) 2.3 10^3/uL (1.5-3.5); LYMPHOCYTES % (AUTO) 38.2 %; MEAN CORPUSCULAR HEMOGLOBIN 25.1 pg (27.0-31.0); MEAN CORPUSCULAR HGB CONC 31.5 g/dL (32.0-36.0); MEAN CORPUSCULAR VOLUME 79.8 fL (81.0-99.0); MONOCYTES # (AUTO) 0.4 10^3/uL (0.0-1.0); MONOCYTES % (AUTO) 6.9 %; NEUTROPHILS # (AUTO) 3.1 10^3/uL (1.5-6.6); NEUTROPHILS % (AUTO) 52.2 %; PLT - PLATELET COUNT 225 10^3/uL (130-450); WHITE BLOOD COUNT 5.9 x10^3/uL (4.8-10.8)
[2020-01-30 11:50] LABS: ALBUMIN 4.1 g/dL (3.2-5.5); ALBUMIN/GLOBULIN RATIO 1.5 (1.0-2.2); BILIRUBIN,TOTAL 0.5 mg/dL (0.2-1.0); CALCIUM 8.8 mg/dL (8.5-10.3); CREATININE 0.7 mg/dL (0.4-1.0); TOTAL PROTEIN 6.9 g/dL (6.7-8.2)
--- NOTE | 2020-01-30 12:39 | CT Report ---
PROCEDURE: Abdomen/Pelvis WO INDICATIONS: LT FLANK PAIN/DIABETES MELLITUS TYPE II TECHNIQUE: Noncontrast 5 mm thick sections acquired from the diaphragms to the symphysis. 5 mm coronal and sagi ttal reformats were then performed. For radiation dose reduction, the following was used: automated exposure control, adjustment of mA and/or kV according to patient size. COMPARISON: CT abdomen pelvis 08/23/2018 FINDINGS: Image quality: Excellent. ABDOMEN: Lung bases: Lung bases are clear. Heart size is normal. Solid organs: Liver is mildly enlarged with steatosis. Normal in size. Gallbladder is unremarkable Pancreas is normal in contours. No adrenal nodules. Kidneys are normal in size, without hydronephr osis or nephrolithiasis. Peritoneum and bowel: Unenhanced bowel loops demonstrate normal wall thickness and caliber. No free fluid or air. Appendix is unremarkable. Minimal scattered colonic diverticula are present. No assoc iated inflammatory change. Nodes and vessels: No retroperitoneal or mesenteric adenopathy by size criteria. Aorta and inferior vena cava are normal in caliber. Miscellaneous: No ventral hernias. PELVIS: Genitourinary: Bladder wall thickness is normal. Miscellaneous: No inguinal hernias or adenopathy. Bones: No suspicious bony lesions. No vertebral body compression fractures. IMPRESSION: 1. No nephro or ureterolithiasis. No bladder calculi. 2. Minimal appearance of colonic diverticula without inflammatory change. Message and callback number were left for Jenni Ferro on 01/30/20 at 12:27pm, who was not available at the time for consultation.. Reviewed by: Cyndee Trevino MD on 01/30/2020 12:38 PM PDT Approved by: Cyndee Trevino MD on 01/30/2020 12:38 PM PDT Station ID: [id number]
== END 2020-01-30 11:38 | disposition home or self-care (01) ==
LOC: DI 11:37
PROVIDERS: ATTEND Nurse Practitioner
DX: K57.30 Diverticulosis of large intestine without perforation or abscess without bleeding (principal); K76.0 Fatty (change of) liver, not elsewhere classified; R10.9 Unspecified abdominal pain; E11.9 Type 2 diabetes mellitus without complications; J45.909 Unspecified asthma, uncomplicated
CPT/HCPCS: 36415; 74176; 80053; 85025

== ENCOUNTER 2020-05-10 05:42 | Emergency (ER) | payer BC ==
--- NOTE | 2020-05-10 05:45 | ED Physician Documentation ---
PD HPI HEENT - Stated complaint Stated Complaint: EAR PX - History obtained from History obtained from: Patient - History of Present Illness Timing - onset: How many weeks ago (2) Timing - details: Gradual onset Location: Left ear Improves: Other (modest but decreasing improvement with 800mg ibuprofen q6) Worsens: Other (palpation) Associated symptoms: No: Fever - Additional information Additional information: c/o 2 weeks of gradually worsening left ear swelling at site of recent piercing (pinna). 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, 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 - Present Medications Home Medications: Ambulatory Orders Medication Instructions Recorded Confirmed Cyclobenzaprine [Flexeril] 10 mg PO TID PRN #20 tablet 02/13/19 Hydrocodone/Acetaminophen 1 - 2 each PO Q6H PRN #14 tablet 02/13/19 [Hydrocodon-Acetaminophen 5-325] Hydrocodone/Acetaminophen 1 - 2 each PO Q6H PRN #14 tablet 08/18/19 [Hydrocodon-Acetaminophen 5-325] Ibuprofen [Ibu] 600 mg PO Q6HR PRN #20 tablet 08/18/19 Neomycin/Poly/Dex Ophth Drops 1 drops RIGHTEYE QID #1 bottle 10/13/19 [Maxitrol Ophth Drops] Ipratropium/Albuterol [Duoneb] 3 ml INH Q6H PRN #30 neb 12/18/19 predniSONE [Deltasone] 10 mg PO [id number] #42 tab 12/18/19 Doxycycline Hyclate 100 mg PO BID #20 capsule 05/10/20 Oxycodone HCl/Acetaminophen 1 each PO Q6HR PRN #14 tablet 05/10/20 [Endocet 7.5-325 mg Tablet] - Allergies Allergies/Adverse Reactions: Allergies Allergy/AdvReac Type Severity Reaction Status Date / Time Penicillins Allergy Severe Rash Verified 05/10/20 05:45 sertraline [From Zoloft] Allergy Unknown Verified 05/10/20 05:45 amoxicillin AdvReac Rash Verified 05/10/20 05:45 clindamycin AdvReac Rash Verified 05/10/20 05:45 Underpadding from last CTR AdvReac Severe Rash Uncoded 10/13/19 10:08 - Social History Does the pt smoke?: No Smoking Status: Never smoker Does the pt drink ETOH?: No Does the pt have substance abuse?: No - Immunizations Immunizations are current?: Yes Immunizations: TDAP >10years/unknown - POLST Patient has POLST: No PD ED PE NORMAL - Vitals Vital signs reviewed: Yes - General General: Alert and oriented X 3, No acute distress, Well developed/nourished PD ED PE EXPANDED - HEENT HEENT Visual: 1 - swelling (tender, swollen, erythematous with three ear piercings; trace purulent discharge from inferior-most piercing site) Results - Vitals Vitals: Vital Signs - 24 hr 05/10/20 05/10/20 05:43 06:29 Temperature 36.8 C Heart Rate 86 77 Respiratory 17 18 Rate Blood Pressure 177/108 H 144/86 H O2 Saturation 100 99 Oxygen O2 Source Room air PD MEDICAL DECISION MAKING - ED course Complexity details: considered differential, d/w patient ED course: 1 cc lidocaine 1% without epinephrine injected into both anterior and posterior aspect of site of swelling left ear (pinna). All three earrings were removed using hemostat for supervisor slitting and shipping of posterior aspects (flat end of posts) and grasping anterior part of the earring with fingers (all three earrings had screw thread mechanism). Departure - Departure Disposition: 01 Home, Self Care Clinical Impression: Infected pierced ear Qualifiers: Encounter type: initial encounter Laterality: left Qualified Code(s): S01.332A - Puncture wound without foreign body of left ear, initial encounter Condition: Good Instructions: ED Ear Lobe Infec Pierced Ear Prescriptions: Oxycodone HCl/Acetaminophen [Endocet 7.5-325 mg Tablet] 1 each PO Q6HR PRN #14 tablet PRN Reason: Pain Doxycycline Hyclate 100 mg PO BID #20 capsule Discharge Date/Time: 05/10/20 06:29
[2020-05-10] MEDS ORDERED: LIDOCAINE 1% 2 ML VIAL SUBQ STA (06:02)
[2020-05-10] MEDS ORDERED: LIDOCAINE 1% 2 ML VIAL ONE (06:12)
[2020-05-10] MEDS ORDERED: DOXYCYCLINE 100 MG TABLET PO STA (06:19)
[2020-05-10] MEDS ORDERED: oxyCODONE/ACET 5/325 Prepack 4 PO STA (06:20)
[2020-05-10 06:29] VITALS: BP 144/86
== END 2020-05-10 06:29 | disposition home or self-care (01) ==
LOC: ED 05:42
DX: L08.9 Local infection of the skin and subcutaneous tissue, unspecified (principal); S01.342A Puncture wound with foreign body of left ear, initial encounter; X58.XXXA Exposure to other specified factors, initial encounter
CPT/HCPCS: 99282; 99283; A9270

== ENCOUNTER 2020-05-29 22:41 | Outpatient (CLI) | payer BC ==
--- NOTE | 2020-05-30 08:28 | XRAY Report ---
PROCEDURE: Cervical Spine 2 View INDICATIONS: STRAIN OF MUSCLE, FASCIA AND TENDON AT NECK LEVEL, INITIAL ENCOUN TECHNIQUE: 4 view(s) of the cervical spine were acquired. COMPARISON: None. FINDINGS: Bones: No fractures or dislocations to the T1 level. The lateral masses of C1 appear intact on the odontoid view. No suspicious bony lesions. Soft tissues: No prevertebral soft tissue swelling. IMPRESSION: No trauma found, no abnormal subluxation seen. Source of current pain is not identified. Reviewed by: Florentin Herrera MD on 05/30/2020 8:27 AM PDT Approved by: Florentin Herrera MD on 05/30/2020 8:27 AM PDT Station ID: [id number]
--- NOTE | 2020-05-30 08:53 | XRAY Report ---
PROCEDURE: Lumbar Spine 2 View INDICATIONS: LOW BACK PAIN, CHRONIC TECHNIQUE: 2 views of the lumbar spine were acquired. COMPARISON: CT scanning through the abdomen and pelvis 01/30/2020.. FINDINGS: Bones: 5 [id number] vertebrae are present. There is normal bony alignment. No vertebral body compression fractures. No suspicious bony lesions. Soft tissues: Overlying bowel gas pattern is normal. No suspicious soft tissue calcifications. IMPRESSION: No fracture found, no subluxation present. Source of current low back pain is not identi fied. Reviewed by: Florentin Herrera MD on 05/30/2020 8:52 AM PDT Approved by: Florentin Herrera MD on 05/30/2020 8:52 AM PDT Station ID: [id number]
== END 2020-05-29 22:42 | disposition home or self-care (01) ==
LOC: DI 22:41
PROVIDERS: ATTEND Physician Assistant Medical
DX: M54.5 Low back pain (principal); G89.29 Other chronic pain; S16.1XXA Strain of muscle, fascia and tendon at neck level, initial encounter
CPT/HCPCS: 72040; 72100

== ENCOUNTER 2020-06-26 22:33 | Outpatient (CLI) | payer BC ==
[2020-06-27 00:17] LABS: % IRON SATURATION 10 % (20-50); ALBUMIN 4.7 g/dL (3.2-5.5); ALBUMIN/GLOBULIN RATIO 1.6 (1.0-2.2); ALKALINE PHOSPHATASE 67 IU/L (42-121); ALT ALANINE AMINOTRANSFERASE 29 IU/L (10-60); AST ASPARTATE AMINOTRANSFERASE 22 IU/L (10-42); BILIRUBIN,TOTAL 0.8 mg/dL (0.2-1.0); BUN - BLOOD UREA NITROGEN 10 mg/dL (6-20); CALCIUM 9.2 mg/dL (8.5-10.3); CARBON DIOXIDE - CO2 26 mmol/L (21-32); CHLORIDE 100 mmol/L (101-111); CHOLESTEROL 216 mg/dL; CORTISOL 3.5 ug/dL; CREATININE 0.7 mg/dL (0.4-1.0); FERRITIN 9.6 ng/mL (11.0-306.8); FOLATE 20.85 ng/mL (5.90 - >24.8); GLUCOSE 104 mg/dL (70-100); HDL CHOLESTEROL 54 mg/dL; IRON 47 ug/dL (28-170); LDL CHOLESTEROL,CALCULATED 135 mg/dL; LDL/HDL RATIO 2.5 (<4.4); SODIUM 137 mmol/L (135-145); T3 UPTAKE 43.4 % (32.0-48.4); T4 (THYROXINE) 7.74 ug/dL (6.09-12.23); TOTAL IRON BINDING CAPACITY 484 ug/dL (250-450); TOTAL PROTEIN 7.6 g/dL (6.7-8.2); TRANSFERRIN 346 mg/dL (192-382); VLDL CHOLESTEROL 27 mg/dL
[2020-06-27 00:23] LABS: CRP - C-REACTIVE PROTEIN < 1.0 mg/dL (0-1.0)
[2020-06-27 00:37] LABS: BASOPHILS % (AUTO) 0.4 %; EOSINOPHILS # (AUTO) 0.2 10^3/uL (0.0-0.7); EOSINOPHILS % (AUTO) 1.6 %; HGB - HEMOGLOBIN 11.3 g/dL (12.0-16.0); LYMPHOCYTES # (AUTO) 3.3 10^3/uL (1.5-3.5); LYMPHOCYTES % (AUTO) 35.4 %; MEAN CORPUSCULAR HGB CONC 31.1 g/dL (32.0-36.0); MEAN CORPUSCULAR VOLUME 77.1 fL (81.0-99.0); MEAN PLATELET VOLUME 10.5 fL (7.9-10.8); MONOCYTES # (AUTO) 0.7 10^3/uL (0.0-1.0); MONOCYTES % (AUTO) 7.6 %; NEUTROPHILS # (AUTO) 5.1 10^3/uL (1.5-6.6); NEUTROPHILS % (AUTO) 54.6 %; PLT - PLATELET COUNT 245 10^3/uL (130-450); RED BLOOD COUNT 4.71 10^6/uL (4.20-5.40); RED CELL DISTRIBUTION WIDTH 14.6 % (12.0-15.0); WHITE BLOOD COUNT 9.3 x10^3/uL (4.8-10.8)
[2020-07-01 11:16] LABS: ANA SCREEN NEGATIVE (NEGATIVE)
== END 2020-06-26 22:34 | disposition home or self-care (01) ==
LOC: LAB 22:33
PROVIDERS: ATTEND Registered Nurse
DX: R19.4 Change in bowel habit (principal); R53.83 Other fatigue; D46.4 Refractory anemia, unspecified; E88.81 Metabolic syndrome and other insulin resistance; L30.9 Dermatitis, unspecified; G47.9 Sleep disorder, unspecified
CPT/HCPCS: 36415; 80053; 80061; 81599; 82306; 82533; 82607; 82627; 82728; 82746; 82784; 82950; 83516; 83540; 83721; 84402; 84403; 84436; 84443; 84466; 84479; 85025; 85651; 86003; 86021; 86038; 86140; 86376; 86671

== ENCOUNTER 2020-06-27 20:58 | Outpatient (CLI) | payer BC | END 2020-06-27 20:59 | disposition home or self-care (01) | LOC: LAB 20:58 | PROVIDERS: ATTEND Obstetrics & Gynecology | DX: R19.4 Change in bowel habit (principal); R53.83 Other fatigue; D46.4 Refractory anemia, unspecified; E88.81 Metabolic syndrome and other insulin resistance; L30.9 Dermatitis, unspecified; G47.9 Sleep disorder, unspecified | CPT/HCPCS: 81599; 82947; 82950; 83525 ==

== ENCOUNTER 2020-08-16 07:38 | Outpatient (CLI) | payer BC ==
--- NOTE | 2020-08-16 11:51 | Ultrasound Report ---
PROCEDURE: Head or Neck Soft Tissue INDICATIONS: IODINE-DEFICIENCY RELATED DIFFUSE (ENDEMIC) GOITER TECHNIQUE: Real time scanning was performed of the neck region of interest, with image documentation . COMPARISON: None. FINDINGS: Right lobe of the thyroid measures 4.9 x 1.3 x 1.6 cm. The left lobe of the thyroid measure s 3.6 x 0.9 x 1.5 cm. Isthmus is 3 mm in thickness. No discrete thyroid nodule identified normal thyr oid echotexture. IMPRESSION: Unremarkable examination as above Reviewed by: Jonathan Rowe MD on 08/16/2020 11:50 AM PST Approved by: Jonathan Rowe MD on 08/16/2020 11:50 AM PST Station ID: [id number]
--- OUTSIDE RECORDS SUMMARY | 2020-08-20 01:50 | EXTERNAL MEDICAL SUMMARY RPT | Continuity of Care Document ---
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 Patient Education [facility] Finding [facility] Current some day smoker [facility] 2018-08-23 22:28 URINARY TRACT INFECTION, SITE [facility] NOT SPECIFIED 2018-08-23 22:28 LEFT LOWER QUADRANT PAIN [facility] 2018-08-23 22:28 DYSURIA [facility] 2018-08-23 22:28 OTHER MICROSCOPIC HEMATURIA Merged with [facility] 2018-08-23 22:28 PERSONAL HISTORY OF URINARY Merged with [facility] CALCULI 2018-09-28 11:46 ACUTE UPPER RESPIRATORY [facility] INFECTION, UNSPECIFIED 2018-09-28 11:46 UNSPECIFIED ASTHMA, [facility] UNCOMPLICATED 2018-11-24 11:16 OTH VIRAL AGENTS THE CAUSE [facility] OF DISEASES CLASSD ELSWHR 2018-11-24 11:16 ACUTE PHARYNGITIS DUE TO OTHER [facility] SPECIFIED ORGANISMS 2018-11-24 11:16 ACUTE PHARYNGITIS, UNSPECIFIED [facility] 2018-12-14 17:15 ACUTE UPPER RESPIRATORY [facility] INFECTION, UNSPECIFIED 2018-12-14 17:15 UNSPECIFIED ASTHMA WITH (ACUTE) [facility] EXACERBATION 2018-12-14 17:15 FEVER, UNSPECIFIED [facility] 2019-02-12 07:20 OSTEOPHYTE, LEFT SHOULDER [facility] 2019-02-12 07:20 OTHER SPECIFIED DISORDERS OF [facility] TENDON, LEFT SHOULDER 2019-02-12 07:20 UNSP ROTATR-CUFF TEAR/RUPTR OF [facility] LEFT SHOULDER, NOT TRAUMA 2019-02-12 07:20 BURSITIS OF LEFT SHOULDER [facility] 2019-02-13 03:00 LOW BACK PAIN [facility] 2019-02-13 03:00 STRAIN OF MUSCLE, FASCIA AND [facility] TENDON OF LOWER BACK, INIT 2019-02-13 03:00 OVEREXERTION FROM STRENUOUS [facility] MOVEMENT OR LOAD, INIT 2019-02-13 03:[address] IN SENIOR CARE [facility] PLACE 2019-02-13 03:00 ACTIVITY, CAREGIVING, LIFTING [facility] 2019-02-13 03:00 CIVILIAN ACTIVITY DONE FOR [facility] INCOME OR PAY 2019-08-07 22:10 ELEVATED BLOOD-PRESSURE [facility] READING, W/O DIAGNOSIS OF HTN 2019-08-07 22:10 OPEN BITE OF LEFT FOREARM, [facility] INITIAL ENCOUNTER 2019-08-07 22:10 ACCIDENTAL BITE BY ANOTHER [facility] PERSON, INITIAL ENCOUNTER 2019-08-07 22:[address] IN SENIOR CARE [facility] PLACE 2019-08-07 22:10 ACTIVITY, OTHER CAREGIVING [facility] 2019-08-07 22:10 CIVILIAN ACTIVITY DONE FOR [facility] INCOME OR PAY 2019-08-18 05:46 PAIN IN RIGHT WRIST [facility] 2019-08-18 05:46 RADIAL STYLOID TENOSYNOVITIS [facility] [DE QUERVAIN] 2019-12-18 19:33 UNSPECIFIED ASTHMA, [facility] UNCOMPLICATED 2019-12-18 19:33 SHORTNESS OF BREATH [facility] 2019-12-26 14:09 ANEMIA, UNSPECIFIED [facility] 2019-12-26 14:09 TYPE 2 DIABETES MELLITUS [facility] WITHOUT COMPLICATIONS 2019-12-26 14:09 MAJOR DEPRESSIVE DISORDER, [facility] SINGLE EPISODE, UNSPECIFIED 2019-12-26 14:09 ESSENTIAL (PRIMARY) [facility] HYPERTENSION 2019-12-26 14:09 UNSPECIFIED ASTHMA WITH (ACUTE) [facility] EXACERBATION 2019-12-26 14:09 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 2020-01-30 11:37 TYPE 2 DIABETES MELLITUS [facility] WITHOUT COMPLICATIONS 2020-01-30 11:37 UNSPECIFIED ASTHMA, [facility] UNCOMPLICATED 2020-01-30 11:37 DVRTCLOS OF LG INT W/O [facility] PERFORATION OR ABSCESS W/O BLEEDING 2020-01-30 11:37 FATTY (CHANGE OF) LIVER, NOT [facility] ELSEWHERE CLASSIFIED 2020-01-30 11:37 UNSPECIFIED ABDOMINAL PAIN [facility] 2020-05-10 05:42 OTHER SPECIFIED DISORDERS OF [facility] LEFT EAR 2020-05-10 05:42 LOCAL INFECTION OF THE SKIN AND [facility] SUBCUTANEOUS TISSUE, UNSP 2020-05-10 05:42 PUNCTURE WOUND WITH FOREIGN Merged with [facility] BODY OF LEFT EAR, INIT ENCNTR 2020-05-10 05:42 EXPOSURE TO OTHER SPECIFIED [facility] FACTORS, INITIAL ENCOUNTER 2020-05-29 00:00:00 CERVICAL SPINE 2 [facility] 2020-05-29 00:00:00 LUMBAR SPINE 2 OR 3 VIEW [facility] 2020-05-29 00:00:00 Health-related behavior [facility] [place] [facility] 2020-05-29 00:00:00 Tobacco [facility] and exposure [facility] [place] [facility] 2020-05-29 00:00:00 [facility] 2020-05-29 00:00:00 Details of drug misuse behavior [facility] [place] [facility] 2020-05-29 00:00:00 [facility] 2020-05-29 00:00:00 Tobacco smoking status [facility] [place] [facility] 2020-05-29 00:00:00 [facility] 2020-[facility]:00 [facility] 2020-05-29 22:41 OTHER CHRONIC PAIN [facility] 2020-05-29 22:41 LOW BACK PAIN [facility] 2020-05-29 22:41 STRAIN OF MUSCLE, FASCIA AND [facility] TENDON AT NECK LEVEL, INIT 2020-06-26 22:33 REFRACTORY ANEMIA, UNSPECIFIED [facility] 2020-06-26 22:33 METABOLIC SYNDROME [facility] 2020-06-26 22:33 SLEEP DISORDER, UNSPECIFIED [facility] 2020-06-26 22:33 DERMATITIS, UNSPECIFIED [facility] 2020-06-26 22:33 CHANGE IN BOWEL HABIT [facility] 2020-06-26 22:33 OTHER FATIGUE [facility] 2020-06-27 20:58 REFRACTORY ANEMIA, UNSPECIFIED [facility] 2020-06-27 20:58 METABOLIC SYNDROME [facility] 2020-06-27 20:58 SLEEP DISORDER, UNSPECIFIED [facility] 2020-06-27 20:58 DERMATITIS, UNSPECIFIED [facility] 2020-06-27 20:58 CHANGE IN BOWEL HABIT [facility] 2020-06-27 20:58 OTHER FATIGUE [facility] 2020-07-06 11:08 [facility] other viral diseases 2020-08-16 07:38 IODINE-DEFICIENCY RELATED [facility] DIFFUSE (ENDEMIC) GOITER 2020-08-16 08:30 IODINE-DEFICIENCY RELATED [facility] DIFFUSE (ENDEMIC) GOITER Allergies date description facility Sulfa (Sulfonamide Antibiotics) [facility] CEPHALEXIN [facility] NO KNOWN ENVIRONMENTAL ALLERGIES [facility] PENICILLINS [facility] Underpadding from last CTR [facility] NO ALLERGY INFORMATION AVAILABLE [facility]IN [facility]IN [facility] am[facility] PEN[facility] CEPHALEXIN [facility] PENICILLINS [facility] NO KNOWN ENVIRONMENTAL ALLERGIES [facility] Underpadding from last CTR [facility] NO KNOWN ALL[facility]GIES [facility] amoxicillin [facility] sertraline [facility] Medications date description facility 2020-05-29 00:00:00 [facility] [place] [facility] 2020-05-29 00:00:00 null [facility] 2020-05-29 00:00:00 null [facility] 2020-05-29 00:00:00 null [facility] 2020-05-29 00:00:00 ACETAMINOPHEN-CODEINE [facility] P [facility] [place] [facility] 2020-05-29 00:00:00 CYCLOBENZAPRINE HCL [facility] Patti [facility] [place] [facility] 2020-05-29 00:00:00 CYCLOBENZAPRINE HCL [facility] [place] [facility] 2020-05-29 00:00:00 ACETAMINOPHEN-CODEINE [facility] P [facility] [place] [facility] 2020-07-23 00:00:00 [place] [facility] Release Tablet 2020-07-23 00:00:00 Lorazepam 0.5 MG Oral Tablet [facility] 2020-07-23 00:00:00 Risperidone 1 MG Oral Tablet [facility] Procedures date description facility 2020-05-29 00:00:00 CERVICAL SPINE 2 OR 3 [facility]W [facility] date description facility 2020-05-29 00:00:00 LUMBAR SPINE 2 OR 3 VIEW [facility] date description facility 2020-05-29 00:00:00 [facility] date description facility 2020-07-06 00:00:00 [facility] date description facility 2020-07-23 00:00:[address] [facility] date description facility 2020-07-23 00:00:00 [facility] Results Social History date description facility [id number] Never smoked tobacco (finding) [facility] date description facility [phone] Current some day smoker [facility] date description facility 2020-05-29 00:00:00 [facility] Social History date description facility [id number] Never smoked tobacco (finding) [facility] date description facility [id number] Current some day smoker [facility] date description facility 2020-05-29 00:00:00 [facility] date description facility [id number]
== END 2020-08-16 07:39 | disposition home or self-care (01) ==
LOC: DI 07:38
PROVIDERS: ATTEND Obstetrics & Gynecology
DX: E01.0 Iodine-deficiency related diffuse (endemic) goiter (principal)

== ENCOUNTER 2020-10-16 03:59 | Outpatient (CLI) | payer BC | END 2020-10-16 04:00 | disposition EMS.NT | LOC: EMS 03:59 | DX: R06.2 Wheezing (principal); R61 Generalized hyperhidrosis ==

== ENCOUNTER 2020-11-12 23:32 | Emergency (ER) | payer BC ==
[2020-11-13] MEDS ORDERED: KETOROLAC 30 MG/ML VIAL IM STA (00:55)
[2020-11-13] MEDS ORDERED: methocarbamoL 500 MG TABLET PO STA (01:41)
--- NOTE | 2020-11-13 02:36 | ED Physician Documentation ---
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 Aching quality, constant, diffuse, radiating up the neck and to the extremities of the upper limb. Denies fevers, chest pain, shortness of breath, rash, other symptoms. Review of Systems Constitutional: reports: Myalgias. denies: Fever, Chills Skin: denies: Rash Musculoskeletal: reports: Neck pain, Back pain, Extremity pain. denies: Joint swelling Neurologic: reports: Generalized weakness. 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 : None HEENT: None Psych: Anxiety Musculoskeletal: None Derm: None - Past Surgical History Past Surgical History: Yes Ortho: Carpal Tunnel surgery, Other /WIRE STRIPPING MACHINE OPERATOR: section, 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 - Present Medications Home Medications: Ambulatory Orders Medication Instructions Recorded Confirmed ALPRAZolam [Alprazolam] 0.5 mg PO DAILY 11/13/20 11/13/20 Celecoxib [CeleBREX] 200 mg PO BID PRN #30 tab 11/13/20 Celecoxib [Celebrex] 50 mg PO DAILY 11/13/20 11/13/20 Ergocalciferol [Vitamin D2] 3,000 mg PO DAILY 11/13/20 11/13/20 Ferrous Fumarate/Ascorbic Acid 1 tablet PO DAILY 11/13/20 11/13/20 [Jaymie-Sequels 65-25 mg Caplet] buPROPion [Wellbutrin Sr] 150 mg PO DAILY 11/13/20 11/13/20 - Allergies Allergies/Adverse Reactions: Allergies Allergy/AdvReac Type Severity Reaction Status Date / Time Penicillins Allergy Severe Rash Verified 11/13/20 00:26 sertraline [From Zoloft] Allergy Unknown Verified 11/13/20 00:26 amoxicillin AdvReac Rash Verified 11/13/20 00:26 clindamycin AdvReac Rash Verified 11/13/20 00:26 Underpadding from last CTR AdvReac Severe Rash Uncoded 10/13/19 10:08 - Social History Does the pt smoke?: No Smoking Status: Never smoker Does the pt drink ETOH?: No Does the pt have substance abuse?: No - Immunizations Immunizations are current?: Yes Immunizations: TDAP >10years/unknown - POLST Patient has POLST: No PD ED PE NORMAL - Vitals Vital signs reviewed: Yes - General General: Alert and oriented X 3, No acute distress, Well developed/nourished - HEENT HEENT: Atraumatic, PERRL, EOMI - Neck Neck: Supple, no meningeal sign - Cardiac Cardiac: RRR - Respiratory Respiratory: No respiratory distress, Clear bilaterally - Abdomen Abdomen: Non tender, Non distended - Derm Derm: Normal color, Warm and dry - Extremities Extremities: No deformity, Other (Tender with range of motion of the upper extremity. Palpable knot in bilateral trapezius muscle of shoulder.) - Neuro Neuro: Alert and oriented X 3, No motor deficit, No sensory deficit - Psych Psych: Normal mood Results - Vitals Vitals: Vital Signs - 24 hr 11/13/20 11/13/20 00:24 02:51 Temperature 36.3 C L Heart Rate 76 62 Respiratory 16 15 Rate Blood Pressure 149/84 H 130/95 H O2 Saturation 100 99 Oxygen O2 Source Room air - Labs Labs: Laboratory Tests 11/13/20 01:50 Total Creatine Kinase 118 PD MEDICAL DECISION MAKING - ED course ED course: 35-year-old woman presents with diffuse upper body aches, improved with Robaxin. She requested a CK level given that she has been in rhabdo before. CK was normal. Return precautions given. Patient will follow up with her primary doctor. Departure - Departure Disposition: 01 Home, Self Care Clinical Impression: Body aches Condition: Good Instructions: ED Muscle Aching Prescriptions: Celecoxib [CeleBREX] 200 mg PO BID PRN #30 tab PRN Reason: Pain Comments: You are seen in the emergency department for body aches. Your CK level was normal. Please follow-up with your primary doctor. Return to the emergency department if you develop any new or worsening symptoms. Forms: Activity restrictions Discharge Date/Time: 11/13/20 02:59
[2020-11-13 02:52] VITALS: BP 130/95
== END 2020-11-13 02:59 | disposition home or self-care (01) ==
LOC: ED 23:32
DX: M54.2 Cervicalgia (principal); M54.9 Dorsalgia, unspecified; R07.9 Chest pain, unspecified; M79.602 Pain in left arm; M79.601 Pain in right arm; M79.10 Myalgia, unspecified site; R53.1 Weakness
CPT/HCPCS: 36415; 82550; 96372; 99283; A9270

== ENCOUNTER 2021-02-12 16:12 | Emergency (ER) | payer BC ==
[2021-02-12 16:29] VITALS: BP 151/92
[2021-02-12] MEDS ORDERED: SODIUM CHLORIDE 0.9% 1,000 ML IV STA (16:47)
[2021-02-12] MEDS ORDERED: METOCLOPRAMIDE 10 MG/2 ML VIAL IVP STA (16:47)
--- NOTE | 2021-02-12 16:48 | ED Physician Documentation ---
History of Present Illness - Stated complaint Stated Complaint: "ALMOST PASSED OUT" - Chief complaint Chief Complaint: Neuro - History obtained from History obtained from: Patient - Additonal information Additional information: 36-year-old woman has been on quite a restrictive diet for the last several months. She fasts for 20 hours a day and then the remainder 4 hours she can eat, but no carbs. And she also does her workouts before the finish of her fast. She has had several episodes of lightheadedness over the last few months, today's was the worst. She felt like she was going to pass out and she also had a migrainous aura with visual floaters on the right side of her vision and a subsequent headache. No possibility of . 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 : None HEENT: None Psych: Anxiety Musculoskeletal: None Derm: None - Past Surgical History Past Surgical History: Yes Ortho: Carpal Tunnel surgery, Other /SPORTS SPECIALIST: section, 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 - Present Medications Home Medications: Ambulatory Orders Medication Instructions Recorded Confirmed ALPRAZolam [Alprazolam] 0.5 mg PO DAILY 11/13/20 11/13/20 Celecoxib [CeleBREX] 200 mg PO BID PRN #30 tab 11/13/20 Celecoxib [Celebrex] 50 mg PO DAILY 11/13/20 11/13/20 Ergocalciferol [Vitamin D2] 3,000 mg PO DAILY 11/13/20 11/13/20 Ferrous Fumarate/Ascorbic Acid 1 tablet PO DAILY 11/13/20 11/13/20 [Jaymie-Sequels 65-25 mg Caplet] buPROPion [Wellbutrin Sr] 150 mg PO DAILY 11/13/20 11/13/20 - Allergies Allergies/Adverse Reactions: Allergies Allergy/AdvReac Type Severity Reaction Status Date / Time Penicillins Allergy Severe Rash Verified 11/13/20 00:26 sertraline [From Zoloft] Allergy Unknown Verified 11/13/20 00:26 amoxicillin AdvReac Rash Verified 11/13/20 00:26 clindamycin AdvReac Rash Verified 11/13/20 00:26 Underpadding from last CTR AdvReac Severe Rash Uncoded 10/13/19 10:08 - Social History Does the pt smoke?: No Smoking Status: Never smoker Does the pt drink ETOH?: No Does the pt have substance abuse?: No - Immunizations Immunizations are current?: Yes Immunizations: TDAP >10years/unknown - POLST Patient has POLST: No PD ED PE NORMAL - Vitals Vital signs reviewed: Yes - General General: Alert and oriented X 3, No acute distress - HEENT HEENT: PERRL, EOMI - Neck Neck: Supple, no meningeal sign, No bony TTP - Cardiac Cardiac: RRR, No murmur - Respiratory Respiratory: No respiratory distress, Clear bilaterally - Abdomen Abdomen: Non tender - Back Back: No CVA TTP, No spinal TTP - Derm Derm: Normal color, Warm and dry - Extremities Extremities: No edema, No calf tenderness / cord - Neuro Neuro: Alert and oriented X 3, Normal speech Results - Vitals Vitals: Vital Signs - 24 hr 02/12/21 16:15 Temperature 36.6 C Heart Rate 84 Respiratory 16 Rate Blood Pressure 151/92 H O2 Saturation 99 Oxygen O2 Source Room air - Labs Labs: Laboratory Tests 02/12/21 02/12/21 16:52 16:52 WBC 7.4 RBC 4.57 Hgb 12.1 Hct 37.6 MCV 82.3 MCH 26.5 L MCHC 32.2 RDW 13.4 Plt Count 227 MPV 10.5 Neut # (Auto) 5.2 Lymph # (Auto) 1.6 [place] # (Auto) 0.5 Eos # (Auto) 0.0 Baso # (Auto) 0.1 Absolute Nucleated RBC 0.00 Nucleated RBC % 0.0 Sodium 141 Potassium 4.0 Chloride 105 Carbon Dioxide 27 Anion Gap 9.0 BUN 11 Creatinine 0.7 Estimated GFR (MDRD) 96 Glucose 129 H Calcium 9.3 PD MEDICAL DECISION MAKING - ED course ED course: 36-year-old woman on a very restrictive diet presents after several near syncopal episodes which I think are explained by her restrictive diet. She is not hypoglycemic here and feeling better after some IV fluids. Advised that she should probably start eating a little bit at least before working out. Departure - Departure Disposition: 01 Home, Self Care Clinical Impression: Near syncope Condition: Good Record reviewed to determine appropriate education?: Yes Instructions: ED Near Syncope Unkn Comments: Again I would go to a slightly less restrictive diet as you get closer to your goal weight and consider eating something before working out. Return for new or worsening symptoms.
[2021-02-12 16:56] LABS: BASOPHILS # (AUTO) 0.1 10^3/uL (0.0-0.1); BASOPHILS % (AUTO) 0.7 %; EOSINOPHILS % (AUTO) 0.5 %; HCT - HEMATOCRIT 37.6 % (37.0-47.0); HGB - HEMOGLOBIN 12.1 g/dL (12.0-16.0); LYMPHOCYTES # (AUTO) 1.6 10^3/uL (1.5-3.5); LYMPHOCYTES % (AUTO) 21.7 %; MEAN CORPUSCULAR HEMOGLOBIN 26.5 pg (27.0-31.0); MEAN CORPUSCULAR HGB CONC 32.2 g/dL (32.0-36.0); MEAN CORPUSCULAR VOLUME 82.3 fL (81.0-99.0); MEAN PLATELET VOLUME 10.5 fL (7.9-10.8); MONOCYTES # (AUTO) 0.5 10^3/uL (0.0-1.0); MONOCYTES % (AUTO) 6.5 %; NEUTROPHILS # (AUTO) 5.2 10^3/uL (1.5-6.6); NEUTROPHILS % (AUTO) 70.5 %; PLT - PLATELET COUNT 227 10^3/uL (130-450); RED BLOOD COUNT 4.57 10^6/uL (4.20-5.40); RED CELL DISTRIBUTION WIDTH 13.4 % (12.0-15.0); WHITE BLOOD COUNT 7.4 x10^3/uL (4.8-10.8)
[2021-02-12 17:05] LABS: CALCIUM 9.3 mg/dL (8.5-10.3); CREATININE 0.7 mg/dL (0.4-1.0)
== END 2021-02-12 17:48 | disposition home or self-care (01) ==
LOC: ED 16:12
DX: R55 Syncope and collapse (principal)
CPT/HCPCS: 36415; 80048; 85025; 96374; 99283; 99284; J2765

== ENCOUNTER 2021-03-08 16:57 | Emergency (ER) | payer BC ==
[2021-03-08 18:05] LABS: HCT - HEMATOCRIT 39.7 % (37.0-47.0); HGB - HEMOGLOBIN 12.5 g/dL (12.0-16.0); MEAN CORPUSCULAR HEMOGLOBIN 26.2 pg (27.0-31.0); MEAN CORPUSCULAR HGB CONC 31.5 g/dL (32.0-36.0); MEAN CORPUSCULAR VOLUME 83.1 fL (81.0-99.0); PLT - PLATELET COUNT 214 10^3/uL (130-450); RED BLOOD COUNT 4.78 10^6/uL (4.20-5.40); RED CELL DISTRIBUTION WIDTH 13.4 % (12.0-15.0); WHITE BLOOD COUNT 6.1 x10^3/uL (4.8-10.8)
[2021-03-08 18:06] LABS: BASOPHILS % (AUTO) 0.8 %; EOSINOPHILS # (AUTO) 0.1 10^3/uL (0.0-0.7); EOSINOPHILS % (AUTO) 0.8 %; LYMPHOCYTES # (AUTO) 1.9 10^3/uL (1.5-3.5); LYMPHOCYTES % (AUTO) 30.5 %; MEAN PLATELET VOLUME 10.9 fL (7.9-10.8); MONOCYTES # (AUTO) 0.5 10^3/uL (0.0-1.0); MONOCYTES % (AUTO) 7.8 %; NEUTROPHILS # (AUTO) 3.6 10^3/uL (1.5-6.6); NEUTROPHILS % (AUTO) 59.9 %
[2021-03-08 18:07] LABS: BASOPHILS # (AUTO) 0.1 10^3/uL (0.0-0.1)
[2021-03-08 18:17] LABS: POTASSIUM 4.1 mmol/L (3.5-5.0)
[2021-03-08 18:18] LABS: ALBUMIN 4.3 g/dL (3.2-5.5); ALBUMIN/GLOBULIN RATIO 1.6 (1.0-2.2); BILIRUBIN,TOTAL 0.6 mg/dL (0.2-1.0); CALCIUM 9.1 mg/dL (8.5-10.3); CREATININE 0.6 mg/dL (0.4-1.0)
[2021-03-08 18:25] LABS: CLARITY,URINE CLEAR (CLEAR); LEUKOCYTE ESTERASE, URINE NEGATIVE (NEGATIVE); NITRITE,URINE NEGATIVE (NEGATIVE); OCCULT BLOOD,URINE TRACE-INTACT (NEGATIVE); PROTEIN,URINE NEGATIVE (NEGATIVE); UROBILINOGEN,URINE 0.2 (NORMAL) E.U./dL (NORMAL)
[2021-03-08 18:26] LABS: BILIRUBIN,URINE NEGATIVE (NEGATIVE); GLUCOSE, URINE (UA) NEGATIVE (NEGATIVE); HCG UR QUAL NEGATIVE; KETONES,URINE (UA) NEGATIVE (NEGATIVE)
--- NOTE | 2021-03-08 19:09 | ED Physician Documentation ---
History of Present Illness - Stated complaint Stated Complaint: DIZZINESS, BLURRED VISION - Chief complaint Chief Complaint: Neuro - History obtained from History obtained from: Patient - History of Present Illness Timing: How many weeks ago (1) Pain level max: 2 Pain level now: 0 - Additonal information Additional information: Patient is a 36-year-old female who states she has a history of Christiane's thyroiditis. She is taking iodine in hopes of avoiding being placed on Synthroid. She states that she has felt like the room is spinning whenever she moves abruptly or stands up. Better with lying down and closing her eyes. She also states it seems better when she takes her clonazepam. No trauma. No fevers. No chills. Denies any possibility of . 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 : None HEENT: None Psych: Depression, Anxiety, Panic attacks Musculoskeletal: None Derm: None - Past Surgical History Past Surgical History: Yes Ortho: Carpal Tunnel surgery, Other /QUARTER BACKER: section, 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 - Present Medications Home Medications: Ambulatory Orders Medication Instructions Recorded Confirmed ALPRAZolam [Alprazolam] 0.5 mg PO DAILY PRN 11/13/20 03/08/21 Ergocalciferol [Vitamin D2] 50,000 units PO ONCE 11/13/20 03/08/21 Ferrous Fumarate/Ascorbic Acid 1 tablet PO DAILY 11/13/20 03/08/21 [Jaymie-Sequels 65-25 mg Caplet] Cefdinir 300 mg PO BID #14 cap 03/08/21 Iodine/Sodium Iodide [Iodine 2% 250 mcg ORAL DAILY 03/08/21 03/08/21 Tincture] - Allergies Allergies/Adverse Reactions: Allergies Allergy/AdvReac Type Severity Reaction Status Date / Time Penicillins Allergy Severe Rash Verified 03/08/21 17:38 sertraline [From Zoloft] Allergy Unknown Verified 03/08/21 17:38 amoxicillin AdvReac Rash Verified 03/08/21 17:38 clindamycin AdvReac Rash Verified 03/08/21 17:38 Underpadding from last CTR AdvReac Severe Rash Uncoded 03/08/21 17:38 - Social History Does the pt smoke?: No Smoking Status: Former smoker Does the pt drink ETOH?: Yes Does the pt have substance abuse?: No - Immunizations Immunizations are current?: Yes Immunizations: TDAP >10years/unknown - POLST Patient has POLST: No PD ED PE NORMAL - Vitals Vital signs reviewed: Yes - General General: Alert and oriented X 3, No acute distress - HEENT HEENT: PERRL, EOMI, Moist mucous membranes, Pharynx benign, Other (Positive Hallpike to the right. Right tympanic membrane is erythematous, dull, bulging with loss of landmarks.) - Neck Neck: Supple, no meningeal sign - Cardiac Cardiac: RRR - Respiratory Respiratory: No respiratory distress, Clear bilaterally - Derm Derm: Warm and dry - Extremities Extremities: No edema, No calf tenderness / cord - Neuro Neuro: Alert and oriented X 3, rn ante partum 2-12 intact (Normal cerebellar tests), No motor deficit, No sensory deficit, Normal speech Results - Vitals Vitals: Oxygen O2 Source Room air - Labs Labs: Laboratory Tests 03/08/21 03/08/21 03/08/21 17:55 17:55 18:03 WBC 6.1 RBC 4.78 Hgb 12.5 Hct 39.7 MCV 83.1 MCH 26.2 L MCHC 31.5 L RDW 13.4 Plt Count 214 MPV 10.9 H Neut # (Auto) 3.6 Lymph # (Auto) 1.9 [place] # (Auto) 0.5 Eos # (Auto) 0.1 Baso # (Auto) 0.1 Sodium 136 Potassium 4.1 Chloride 102 Carbon Dioxide 27 Anion Gap 7.0 BUN 12 Creatinine 0.6 Estimated GFR (MDRD) 114 Glucose 103 H Calcium 9.1 Total Bilirubin 0.6 AST 13 ALT 14 Alkaline Phosphatase 52 Total Protein 7.0 Albumin 4.3 Globulin 2.7 Albumin/Globulin Ratio 1.6 Lipase 28 Urine Color LIGHT YELLOW Urine Clarity CLEAR Urine pH 5.0 Ur Specific [place] <=1.005 Urine Protein NEGATIVE Urine Glucose (UA) NEGATIVE Urine Ketones NEGATIVE Urine Occult Blood TRACE-INTACT Urine Nitrite NEGATIVE Urine Bilirubin NEGATIVE Urine Urobilinogen 0.2 (NORMAL) Ur Leukocyte Esterase NEGATIVE Ur Microscopic Review NOT INDICATED Urine Culture Comments NOT INDICATED Urine HCG, Qual NEGATIVE PD MEDICAL DECISION MAKING - ED course Complexity details: reviewed results, re-evaluated patient, considered d ifferential, d/w patient ED course: Patient with vertigo. Possibly related to the right acute otitis media. Will place her on antibiotics for this. She is taking clonazepam which may be helping to mitigate the vertiginous symptoms. We will have her follow-up closely with her doctor for further care. No indication for imaging at this time. Patient counseled regarding signs and symptoms for which I believe and urgent re-evaluation would be necessary. Patient with good understanding of and agreement to plan and is comfortable going home at this time This document was made in part using voice recognition software. While efforts are made to proofread this document, sound alike and grammatical errors may occur. Departure - Departure Disposition: 01 Home, Self Care Clinical Impression: Vertigo Otitis media Qualifiers: Otitis media type: suppurative Chronicity: acute Laterality: right Recurrence: not specified as recurrent Spontaneous tympanic membrane rupture: without spontaneous rupture Qualified Code(s): H66.001 - Acute suppurative otitis media without spontaneous rupture of ear drum, right ear Condition: Good Instructions: ED Otitis Media Acute Adult, ED Vertigo Unspecified Follow-Up: your,doctor in 1 week [Other] Prescriptions: Cefdinir 300 mg PO BID #14 cap Comments: Take all antibiotics until gone. Follow-up with your doctor for further care. This is likely related to the infection in your right ear. Your vertigo should clear up as the infection clears. Discharge Date/Time: 03/08/21 19:20
[2021-03-08 19:35] VITALS: BP 140/104
== END 2021-03-08 19:20 | disposition home or self-care (01) ==
LOC: ED 16:57
DX: R42 Dizziness and giddiness (principal); H66.001 Acute suppurative otitis media without spontaneous rupture of ear drum, right ear; Z86.39 Personal history of other endocrine, nutritional and metabolic disease; Z87.891 Personal history of nicotine dependence
CPT/HCPCS: 36415; 80053; 81001; 81003; 81025; 83690; 85025; 87086; 99283; 99284

== ENCOUNTER 2021-04-29 20:24 | Emergency (ER) | payer BC ==
[2021-04-29 20:56] LABS: HCT - HEMATOCRIT 37.5 % (37.0-47.0); HGB - HEMOGLOBIN 11.9 g/dL (12.0-16.0); MEAN CORPUSCULAR HEMOGLOBIN 26.6 pg (27.0-31.0); MEAN CORPUSCULAR HGB CONC 31.7 g/dL (32.0-36.0); MEAN CORPUSCULAR VOLUME 83.9 fL (81.0-99.0); MEAN PLATELET VOLUME 10.7 fL (7.9-10.8); RED BLOOD COUNT 4.47 10^6/uL (4.20-5.40); RED CELL DISTRIBUTION WIDTH 13.3 % (12.0-15.0); WHITE BLOOD COUNT 6.6 x10^3/uL (4.8-10.8)
[2021-04-29 21:09] LABS: CALCIUM 8.7 mg/dL (8.5-10.3); CREATININE 0.8 mg/dL (0.4-1.0); POTASSIUM 4.2 mmol/L (3.5-5.0)
--- NOTE | 2021-04-29 21:20 | ED Physician Documentation ---
PD HPI CHEST PAIN - Stated complaint Stated Complaint: HIGH HEART RATE - Chief complaint Chief Complaint: Cardiac - History obtained from History obtained from: Patient - History of Present Illness Quality: Sharp Location: Substernal Radiation: Back Improved by: Nothing Worsened by: Other (nothing) Associated symptoms: Palpitations. No: Shortness of air, Diaphoresis, Nausea, Vomiting, Feeling faint / dizzy, General Weakness, Cough, Other Similar symptoms before: Work up / diagnostics - Additional information Additional information: 36 yo F w/ history of hashimotos and anxiety presents w/ intermittent cp and palpitations for about 10 days since receiving a covid vaccine. Pt has hx/o palpitations but states her hr has been even higher than typical, sometimes reaching 140. she also typically doesn't have cp w/ her palpitations but has had some mid sternal pain radiating into the back intermittently over the past few days. she thought perhaps it was her anxiety but it didn't improve w/ xanax. She states she was scared about getting a blood clot from the vaccine so has been taking aspirin but then developed some blood in her stool so she stopped. she has had problems w/ blood in her stool in the past w/ nsaids. no clots or profuse blood but she feels like she can see it in the stool. Review of Systems Constitutional: reports: Reviewed and negative Eyes: reports: Reviewed and negative Ears: reports: Reviewed and negative Nose: reports: Reviewed and negative Throat: reports: Reviewed and negative Cardiac: reports: Chest pain / pressure, Palpitations. denies: Pedal edema, Calf pain Respiratory: reports: Dyspnea. denies: Cough, Hemoptysis, Wheezing GI: reports: Bloody / black stool. 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 : None HEENT: None Psych: Depression, Anxiety, Panic attacks Musculoskeletal: None Derm: None - Past Surgical History Past Surgical History: Yes Ortho: Carpal Tunnel surgery, Other /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 FILM PROCESSING: section, 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 - Present Medications Home Medications: Ambulatory Orders Medication Instructions Recorded Confirmed ALPRAZolam [Alprazolam] 0.5 mg PO DAILY PRN 11/13/20 03/08/21 Ergocalciferol [Vitamin D2] 50,000 units PO ONCE 11/13/20 03/08/21 Ferrous Fumarate/Ascorbic Acid 1 tablet PO DAILY 11/13/20 03/08/21 [Jaymie-Sequels 65-25 mg Caplet] Cefdinir 300 mg PO BID #14 cap 03/08/21 Iodine/Sodium Iodide [Iodine 2% 250 mcg ORAL DAILY 03/08/21 03/08/21 Tincture] - Allergies Allergies/Adverse Reactions: Allergies Allergy/AdvReac Type Severity Reaction Status Date / Time Penicillins Allergy Severe Rash Verified 04/29/21 20:33 sertraline [From Zoloft] Allergy Unknown Verified 04/29/21 20:33 amoxicillin AdvReac Rash Verified 04/29/21 20:33 clindamycin AdvReac Rash Verified 04/29/21 20:33 Underpadding from last CTR AdvReac Severe Rash Uncoded 04/29/21 20:33 - Social History Does the pt smoke?: No Smoking Status: Never smoker Does the pt drink ETOH?: Yes Does the pt have substance abuse?: No - Immunizations Immunizations are current?: Yes Immunizations: TDAP >10years/unknown - POLST Patient has POLST: No PD ED PE NORMAL - Vitals Vital signs reviewed: Yes - General General: Alert and oriented X 3, No acute distress, Well developed/nourished - HEENT HEENT: Atraumatic, Moist mucous membranes, Pharynx benign - Neck Neck: Supple, no meningeal sign, No JVD - Cardiac Cardiac: RRR, No murmur, No gallop, No rub, Strong equal pulses - Respiratory Respiratory: No respiratory distress, Clear bilaterally - Abdomen Abdomen: Normal bowel sounds, Soft, Non tender, Non distended - Derm Derm: Normal color, Warm and dry, No rash - Extremities Extremities: No deformity, No tenderness to palpate, Normal ROM s pain, No edema, No calf tenderness / cord - Neuro Neuro: Alert and oriented X 3, No motor deficit, No sensory deficit, Normal speech Eye Opening: Spontaneous Motor: Obeys Commands Verbal: Oriented GCS Score: 15 - Psych Psych: Normal mood, Normal affect Results - Vitals Vitals: Vital Signs - 24 hr 04/29/21 20:33 Temperature 36.8 C Heart Rate 109 H Respiratory 18 Rate Blood Pressure 161/91 H O2 Saturation 100 Oxygen O2 Source Room air - Labs Labs: Laboratory Tests 04/29/21 04/29/21 04/29/21 20:50 20:50 20:50 WBC 6.6 RBC 4.47 Hgb 11.9 L Hct 37.5 MCV 83.9 MCH 26.6 L MCHC 31.7 L RDW 13.3 Plt Count 200 MPV 10.7 D-Dimer Sodium 139 Potassium 4.2 Chloride 103 Carbon Dioxide 28 Anion Gap 8.0 BUN 17 Creatinine 0.8 Estimated GFR (MDRD) 82 L Glucose 113 H Calcium 8.7 Troponin I High Sens TSH 3.48 Free T4 0.86 04/29/21 04/29/21 20:50 21:25 WBC RBC Hgb Hct MCV MCH MCHC RDW Plt Count MPV D-Dimer 213.1 Sodium Potassium Chloride Carbon Dioxide Anion Gap BUN Creatinine Estimated GFR (MDRD) Glucose Calcium Troponin I High Sens < 2.3 L TSH Free T4 PD MEDICAL DECISION MAKING - ED course Complexity details: reviewed old records, reviewed results, re-evaluated patient , considered differential, d/w patient ED course: Pt presented w/ heart palpitations and chest pain. Differentials included anxiety, acs, pe, pna, hyperthyroid, anemia, idiopathic palpations. She also has some mild brbpr likely 2/2 to aspirin use. Workup here was reassuring including nl cbc, bmp, tsh, ddimer, trop, and ekg. Suspect sx 2/2 to anxiety but pt also fasts frequently which may be contributing. encouraged her to limit fasting if she is feeling symptomatic. recommended she avoid or limit caffeine. advised her to stop nsaids inc aspirin due to blood in stool. if persists or worsens, fup w/ pcp or return to the ER. Departure - Departure Disposition: 01 Home, Self Care Clinical Impression: Atypical chest pain, Heart palpitations Condition: Good Instructions: ED Chest Pain Atypical Unkn Cause Comments: You had a workup today for your chest pain and heart palpitations and your labs were all reassuring and your EKG is not suggestive of heart disease. Your thyroid studies are reassuring and you do not have signs of anemia. Please stop the aspirin you were taking as that might contribute to the blood in your stool. Follow up w/ your PCP at your appt on Tuesday regarding blood in stool. Typically this is self limiting. Your heart palpitations may be related to fasting, anxiety, side effect of the vaccine, or idiopathic.
[2021-04-29 21:30] LABS: THYROID STIMULATING HORMONE 3.48 uIU/mL (0.34-5.60)
[2021-04-29 21:32] LABS: FREE T4 (FREE THYROXINE) 0.86 ng/dL (0.58-1.64)
[2021-04-29 21:47] VITALS: BP 114/76
== END 2021-04-29 21:47 | disposition home or self-care (01) ==
LOC: ED 20:24
DX: R07.89 Other chest pain (principal); R00.2 Palpitations; F41.9 Anxiety disorder, unspecified
CPT/HCPCS: 36415; 80048; 84439; 84443; 84484; 85027; 85379; 93005; 99283; 99284

== ENCOUNTER 2021-04-30 10:53 | Outpatient (CLI) | payer BC ==
[2021-04-30 11:27] LABS: ALBUMIN 4.5 g/dL (3.2-5.5); BILIRUBIN,TOTAL 0.6 mg/dL (0.2-1.0); CALCIUM 9.2 mg/dL (8.5-10.3); CREATININE 0.7 mg/dL (0.4-1.0); TOTAL PROTEIN 6.7 g/dL (6.7-8.2)
[2021-04-30 11:41] LABS: T3 UPTAKE 44.1 % (32.0-48.4)
[2021-04-30 11:42] LABS: T4 (THYROXINE) 4.58 ug/dL (6.09-12.23)
[2021-04-30 11:47] LABS: FREE T4 (FREE THYROXINE) 0.8 ng/dL (0.58-1.64)
== END 2021-04-30 10:54 | disposition home or self-care (01) ==
LOC: LAB 10:53
PROVIDERS: ATTEND Registered Nurse
DX: E03.9 Hypothyroidism, unspecified (principal); E88.81 Metabolic syndrome and other insulin resistance; E55.9 Vitamin D deficiency, unspecified; D50.8 Other iron deficiency anemias
CPT/HCPCS: 36415; 80053; 81599; 82306; 82728; 83525; 84436; 84439; 84479

== ENCOUNTER 2021-05-26 16:21 | Outpatient (CLI) | payer BC | END 2021-05-26 16:22 | disposition home or self-care (01) | LOC: LAB 16:21 | PROVIDERS: ATTEND Registered Nurse | DX: E03.9 Hypothyroidism, unspecified (principal); E88.81 Metabolic syndrome and other insulin resistance; E55.9 Vitamin D deficiency, unspecified; D50.8 Other iron deficiency anemias | CPT/HCPCS: 36415; 82306 ==

== ENCOUNTER 2021-06-15 08:00 | Outpatient (CLI) | payer BC | END 2021-06-15 23:59 | disposition home or self-care (01) | LOC: LAB.S 08:00 | PROVIDERS: ATTEND Physician Assistant Medical | DX: R30.0 Dysuria (principal); N89.8 Other specified noninflammatory disorders of vagina | CPT/HCPCS: 87086; 87181; 87661; 87801 ==

== ENCOUNTER 2021-09-21 11:54 | Emergency (ER) | payer BC ==
--- NOTE | 2021-09-21 12:34 | ED Physician Documentation ---
History of Present Illness - Stated complaint Stated Complaint: ALLERGIC REACTION - Chief complaint Chief Complaint: Allergic Rx - History obtained from History obtained from: Patient - Additonal information Additional information: 36-year-old woman who has diabetes and anxiety. Over the last couple of weeks has developed allergic issues potentially related to tequila. Both September 12 and last night after drinking tequila she developed diffuse redness, itching, red eyes, and a sensation of a scratchy throat. It is better now after taking Benadryl. 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 : None HEENT: None Psych: Depression, Anxiety, Panic attacks Musculoskeletal: None Derm: None - Past Surgical History Past Surgical History: Yes Ortho: Carpal Tunnel surgery, Other /DISH CARRIER: section, 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 - Present Medications Home Medications: Ambulatory Orders Medication Instructions Recorded Confirmed ALPRAZolam [Alprazolam] 0.5 mg PO DAILY PRN 11/13/20 03/08/21 Ergocalciferol [Vitamin D2] 50,000 units PO ONCE 11/13/20 03/08/21 Ferrous Fumarate/Ascorbic Acid 1 tablet PO DAILY 11/13/20 03/08/21 [Jaymie-Sequels 65-25 mg Caplet] Cefdinir 300 mg PO BID #14 cap 03/08/21 Iodine/Sodium Iodide [Iodine 2% 250 mcg ORAL DAILY 03/08/21 03/08/21 Tincture] - Allergies Allergies/Adverse Reactions: Allergies Allergy/AdvReac Type Severity Reaction Status Date / Time Penicillins Allergy Severe Rash Verified 04/29/21 20:33 sertraline [From Zoloft] Allergy Unknown Verified 04/29/21 20:33 amoxicillin AdvReac Rash Verified 04/29/21 20:33 clindamycin AdvReac Rash Verified 04/29/21 20:33 Underpadding from last CTR AdvReac Severe Rash Uncoded 04/29/21 20:33 - Social History Does the pt smoke?: No Smoking Status: Never smoker Does the pt drink ETOH?: Yes Does the pt have substance abuse?: No - Immunizations Immunizations are current?: Yes Immunizations: TDAP >10years/unknown - POLST Patient has POLST: No PD ED PE NORMAL - Vitals Vital signs reviewed: Yes - General General: Alert and oriented X 3, No acute distress - HEENT HEENT: Other (Mildly bloodshot eyes, visualized portions of the oropharynx and phonation are normal.) - Cardiac Cardiac: RRR, No murmur - Respiratory Respiratory: No respiratory distress, Clear bilaterally - Back Back: No CVA TTP, No spinal TTP - Derm Derm: Normal color, Warm and dry, No rash - Extremities Extremities: No edema, No calf tenderness / cord - Neuro Neuro: Alert and oriented X 3, Normal speech Results - Vitals Vitals: Vital Signs - 24 hr 09/21/21 12:04 Temperature 36.8 C Heart Rate 102 H Respiratory 18 Rate Blood Pressure 170/95 H O2 Saturation 100 Oxygen O2 Source Room air PD MEDICAL DECISION MAKING - ED course ED course: 36-year-old woman with allergic reaction, potentially to tequila, symptoms are resolving after Benadryl prior to arrival. We discussed cessation of alcohol and follow-up with allergy if still having symptoms. We also discussed steroids but risks probably outweigh benefits given resolving symptoms and underlying diabetes. Departure - Departure Disposition: 01 Home, Self Care Clinical Impression: Allergic reaction Qualifiers: Encounter type: initial encounter Qualified Code(s): T78.40XA - Allergy, unspecified, initial encounter Condition: Good Record reviewed to determine appropriate education?: Yes Instructions: ED Allergic Reaction General Other Comments: Avoid alcohol, if you continue to have problems reasonable to follow-up with your PCP for consideration for allergy referral. Return if worse. Benadryl as needed, 2 tablets every 6 hours for the symptoms. Forms: Activity restrictions
[2021-09-21 12:35] VITALS: BP 138/99
== END 2021-09-21 12:38 | disposition home or self-care (01) ==
LOC: ED 11:54
DX: T78.49XA Other allergy, initial encounter (principal); E11.9 Type 2 diabetes mellitus without complications
CPT/HCPCS: 99282

== ENCOUNTER 2022-10-06 22:41 | Emergency (ER) | payer BC, OTHER ==
[2022-10-06 23:02] LABS: BILIRUBIN,URINE NEGATIVE (NEGATIVE); GLUCOSE, URINE (UA) NEGATIVE (NEGATIVE); KETONES,URINE (UA) TRACE mg/dL (NEGATIVE); LEUKOCYTE ESTERASE, URINE MODERATE (NEGATIVE); NITRITE,URINE NEGATIVE (NEGATIVE); OCCULT BLOOD,URINE LARGE (NEGATIVE); PROTEIN,URINE 100 mg/dL (NEGATIVE); UROBILINOGEN,URINE 0.2 (NORMAL) E.U./dL (NORMAL)
[2022-10-06 23:07] LABS: CLARITY,URINE CLOUDY (CLEAR); HCG UR QUAL NEGATIVE
[2022-10-06 23:15] LABS: BACTERIA,URINE Few /HPF (None Seen); SQUAMOUS EPITHELIAL CELL,UR RARE Squamous (<= Few); WBC,URINE >25 /HPF (0-5)
--- NOTE | 2022-10-07 00:48 | ED Physician Documentation ---
PD HPI FEMALE - Stated complaint Stated Complaint: FEMALE - Chief complaint Chief Complaint: Abd Pain - History obtained from History obtained from: Patient - Additional information Additional information: HPI from patient. Patient says that approximately 1 hour prior to ER arrival she had sudden onset of left flank pain associated with painful dysuria and urge to urinate but only small urine output. Patient says she has history of both UTI and kidney stone. She says the pain is distinctly worse with urinating including the left flank pain. She also noted hematuria when she provided the urine sample upon ER arrival. She denies fever. Review of Systems Constitutional: denies: Fever GI: reports: Abdominal Pain. 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 : None HEENT: None Psych: Depression, Anxiety, Panic attacks Musculoskeletal: None Derm: None - Past Surgical History Past Surgical History: Yes Ortho: Carpal Tunnel surgery, Other /DOCUMENT PHOTOGRAPHER: section, 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 - Present Medications Home Medications: Ambulatory Orders Medication Instructions Recorded Confirmed ALPRAZolam [Alprazolam] 0.5 mg PO DAILY PRN 11/13/20 03/08/21 Ergocalciferol [Vitamin D2] 50,000 units PO ONCE 11/13/20 03/08/21 Ferrous Fumarate/Ascorbic Acid 1 tablet PO DAILY 11/13/20 03/08/21 [Jaymie-Sequels 65-25 mg Caplet] Cefdinir 300 mg PO BID #14 cap 03/08/21 Iodine/Sodium Iodide [Iodine 2% 250 mcg ORAL DAILY 03/08/21 03/08/21 Tincture] Nitrofurantoin [Macrobid] 100 mg PO BID #10 cap 10/07/22 Phenazopyridine HCl [Pyridium] 200 mg PO TID PRN #6 tablet 10/07/22 oxyCODONE [Roxicodone] 5 mg PO Q4-6H PRN #14 tablet 10/07/22 - Allergies Allergies/Adverse Reactions: Allergies Allergy/AdvReac Type Severity Reaction Status Date / Time Penicillins Allergy Severe Rash Verified 10/06/22 22:52 sertraline [From Zoloft] Allergy Unknown Verified 10/06/22 22:52 amoxicillin AdvReac Rash Verified 10/06/22 22:52 clindamycin AdvReac Rash Verified 10/06/22 22:52 Underpadding from last CTR AdvReac Severe Rash Uncoded 04/29/21 20:33 - Social History Does the pt smoke?: No Smoking Status: Never smoker Does the pt drink ETOH?: Yes Does the pt have substance abuse?: No - Immunizations Immunizations are current?: Yes Immunizations: TDAP >10years/unknown - POLST Patient has POLST: No PD ED PE NORMAL - Vitals Vital signs reviewed: Yes - General General: Alert and oriented X 3, No acute distress, Well developed/nourished - Abdomen Abdomen: Soft, Non tender, Non distended - Back Back: Other (mild left CVA tenderness) Results - Vitals Vitals: Oxygen O2 Source Room air - Labs Labs: Microbiology 10/06/22 22:56 Urine Culture - Final Urine,Clean Catch LESS THAN 10,000 COLONIES/ML polymicrobial growth including potential pathogens. This is suggestive of skin or other contamination. Laboratory Tests 10/06/22 22:56 Urine Color YELLOW Urine Clarity CLOUDY Urine pH 6.0 Ur Specific Warner >=1.030 H Urine Protein 100 H Urine Glucose (UA) NEGATIVE Urine Ketones TRACE Urine Occult Blood LARGE H Urine Nitrite NEGATIVE Urine Bilirubin NEGATIVE Urine Urobilinogen 0.2 (NORMAL) Ur Leukocyte Esterase MODERATE H Urine RBC 11-25 H Urine WBC >25 H Ur Squamous Epith Cells RARE Squamous Urine Bacteria Few Ur Microscopic Review INDICATED Urine Culture Comments INDICATED Urine HCG, Qual NEGATIVE PD Medical Decision Making - ED course Complexity details: reviewed old records, reviewed results, re-evaluated patient, considered differential, d/w patient ED course: Patient's urinalysis is consistent with UTI; there are 11-25 red blood cells per high-powered field, greater than 25 white blood cells per high-powered field, rare squames, few bacteria. Her urine hCG is negative. Due to patient's report of history of kidney stones, a CT of the abdomen pelvis was also undertaken. She is given a dose of Macrobid as well as Pyridium after the initial HPI based on this urinalysis. She also asked for something specifically for pain and in discussing options, mutual decision was for p.o. oxycodone. Prior to the CT of the abdomen and pelvis being performed, the patient indicated that she does not want to have this test performed. She tells me she feels comfortable with simply treating for urinary tract infection, and understands that she should return to the emergency department if her symptoms worsen, or if she develops new/concerning signs/symptoms (such as fever, intractable vomiting, intractable pain). I did review her previous radiology studies available in [facility] records, and I do see multiple CT's performed of the abdomen pelvis without any note of kidney stones on any of the studies I reviewed. I am prescribing a short course of short-acting opioid pain medication for this patient. I have reviewed the patients YEAST WASHER and no concerning findings were noted. I have discussed that the opioids are for short term therapy only, and will not be refilled from the ED. Departure - Departure Disposition: 01 Home, Self Care Clinical Impression: Urinary tract infection Qualifiers: Urinary tract infection type: acute cystitis Hematuria presence: with hematuria Qualified Code(s): N30.01 - Acute cystitis with hematuria Condition: Good Instructions: ED UTI Cystitis Female Follow-Up: NORMA MORELOS DO [Primary Care Provider] - (3-5 days if symptoms have not resolved) Prescriptions: Nitrofurantoin [Macrobid] 100 mg PO BID #10 cap Phenazopyridine HCl [Pyridium] 200 mg PO TID PRN #6 tablet PRN Reason: dysuria oxyCODONE [Roxicodone] 5 mg PO Q4-6H PRN #14 tablet PRN Reason: Pain Comments: The urinalysis is consistent with urinary tract infection and thus you were given the first dose of an antibiotic (Macrobid, nitrofurantoin) in the emergency department. You were also given oxycodone (narcotic/opiate pain medication) and Pyridium (medication that can help with the symptoms of UTI). I have electronically submitted prescriptions for the antibiotic, the oxycodone, and the Pyridium to the [facility] pharmacy in [place]. I am prescribing a short course of narcotic pain medication for you. These are potentially dangerous and addictive medications that should be used carefully. These medications may constipate you. Take an vmod-cft-asmqyji stool softener (docusate) twice daily with plenty of water while taking these medications. If you go 24 hours without a bowel movement, take aois-qwr-cmlkdiq miralax, per package instructions. Do not drink or drive while taking these medications. If you received narcotic or sedating medications while in the emergency department, do not drive for 24 hours. Store this medication in a safe, secure place and out of reach of children. It is a violation of federal law to give or sell this medication to another person or to use in a manner other than prescribed. The ED will not refill narcotic prescriptions, including prescriptions lost or stolen. To dispose of unwanted medications: 1. [facility] at [address] [facility] in [place] has a medication drop box. They accept prescription medications (in pill form) Tuesday through Tuesday 9:00 a.m. to 5:00 p.m. 2. The [facility] accepts prescription medications (in pill form only) for disposal year round. Call for more information. 3. Contact the [facility] for the next COUNTS INCLUDE 234 BEDS AT THE [facility] sponsored prescription drug collection event. , [phone], or [phone]; Discharge Date/Time: 10/07/22 01:44
[2022-10-07] MEDS ORDERED: oxyCODONE 5 MG TABLET PO STA (00:59)
[2022-10-07] MEDS ORDERED: NITROFURANTOIN MACRO 100 MG CAPSULE PO STA (01:00)
[2022-10-07] MEDS ORDERED: PHENAZOPYRIDINE 100 MG TABLET PO STA (01:00)
[2022-10-07 01:16] VITALS: BP 158/104
== END 2022-10-07 01:44 | disposition home or self-care (01) ==
LOC: ED 22:41
DX: N30.01 Acute cystitis with hematuria (principal); E03.9 Hypothyroidism, unspecified; Z79.899 Other long term (current) drug therapy; Z88.1 Allergy status to other antibiotic agents; Z88.0 Allergy status to penicillin
CPT/HCPCS: 81001; 81025; 87086; 99284; A9270; 81003

== ENCOUNTER 2023-02-12 19:28 | Emergency (ER) | payer SELFPAY ==
--- NOTE | 2023-02-12 19:53 | ED Physician Documentation ---
History of Present Illness - Stated complaint Stated Complaint: LT FT INJ - Chief complaint Chief Complaint: General - Additonal information Additional information: 38-year-old female presenting to the emergency department with left foot injury. [place]. Positive loss of consciousness. Since that time has had pain and tenderness to the lateral aspect of her left foot. Reports a previous fracture to this foot. States has had headache and light sensitivity since waking up this morning. 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 : None HEENT: None Psych: Depression, Anxiety, Panic attacks Musculoskeletal: None Derm: None - Past Surgical History Past Surgical History: Yes Ortho: Carpal Tunnel surgery, Other /BALANCE WHEEL SCREW HOLE TAPPER: section, 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 - Present Medications Home Medications: Ambulatory Orders Medication Instructions Recorded Confirmed ALPRAZolam [Alprazolam] 0.5 mg PO DAILY PRN 11/13/20 03/08/21 Ergocalciferol [Vitamin D2] 50,000 units PO ONCE 11/13/20 03/08/21 Ferrous Fumarate/Ascorbic Acid 1 tablet PO DAILY 11/13/20 03/08/21 [Jaymie-Sequels 65-25 mg Caplet] Cefdinir 300 mg PO BID #14 cap 03/08/21 Iodine/Sodium Iodide [Iodine 2% 250 mcg ORAL DAILY 03/08/21 03/08/21 Tincture] Nitrofurantoin [Macrobid] 100 mg PO BID #10 cap 10/07/22 Phenazopyridine HCl [Pyridium] 200 mg PO TID PRN #6 tablet 10/07/22 oxyCODONE [Roxicodone] 5 mg PO Q4-6H PRN #14 tablet 10/07/22 Acetaminophen [Tylenol] 650 mg PO Q6H PRN #30 tab 02/12/23 Ibuprofen [Motrin] 800 mg PO Q8H PRN #30 tablet 02/12/23 - Allergies Allergies/Adverse Reactions: Allergies Allergy/AdvReac Type Severity Reaction Status Date / Time Penicillins Allergy Severe Rash Verified 10/06/22 22:52 sertraline [From Zoloft] Allergy Unknown Verified 10/06/22 22:52 amoxicillin AdvReac Rash Verified 10/06/22 22:52 clindamycin AdvReac Rash Verified 10/06/22 22:52 Underpadding from last CTR AdvReac Severe Rash Uncoded 04/29/21 20:33 - Social History Does the pt smoke?: No Smoking Status: Never smoker Does the pt drink ETOH?: Yes Does the pt have substance abuse?: No - Immunizations Immunizations are current?: Yes Immunizations: TDAP >10years/unknown - POLST Patient has POLST: No PD ED PE NORMAL - Vitals Vital signs reviewed: Yes - General General: Alert and oriented X 3, No acute distress, Well developed/nourished - HEENT HEENT: Atraumatic, PERRL, EOMI, Ears normal, Moist mucous membranes, Pharynx benign, Dentition benign - Neck Neck: Supple, no meningeal sign, No bony TTP, No adenopathy, Thyroid normal, No JVD, C-Spine cleared by NEXUS criteria - Cardiac Cardiac: RRR, No murmur, No gallop, No rub, Strong equal pulses - Respiratory Respiratory: No respiratory distress, Clear bilaterally - Abdomen Abdomen: Normal bowel sounds, Soft, Non tender, Non distended, No organomegaly - Female Female : Deferred - Rectal Rectal: Deferred - Back Back: No CVA TTP - Extremities Extremities: Other (Tenderness to palpation at the base of the fifth metatarsal.) - Neuro Neuro: Alert and oriented X 3, 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 Afebrile, hemodynamic stable. No focal or lateralizing neurologic deficits. CT head nonacute. X-rays of left foot negative for acute fracture. Patient presented with her own crutches. She did have a hangnail which she asked that I removed in the emergency department. This was done without complication. Will encourage careful follow-up with primary care return to the emergency department for new or worsening symptoms. Departure - Departure Disposition: 01 Home, Self Care Clinical Impression: Ankle injury, Head injury, Avulsion of toenail Prescriptions: Ibuprofen [Motrin] 800 mg PO Q8H PRN #30 tablet PRN Reason: PAIN &/OR FEVER Acetaminophen [Tylenol] 650 mg PO Q6H PRN #30 tab PRN Reason: Pain Comments: Thank you for allowing us to care for you today would be general. I have sent medication to help with pain control to your preferred pharmacy. The CT and x-rays performed today did not show any dangerous or life-threatening injuries. We did remove a partially avulsed nail. I recommend regular application of a topical antibiotic ointment such as bacitracin or Neosporin to this area until it fully heals. Please use Your crutches as needed for ambulatory support. Your symptoms should be improving steadily over the course of the next few days. If 7 days go by without improvement of symptoms follow-up with your primary care doctor or return to the emergency department. Forms: Activity restrictions Discharge Date/Time: 02/12/23 21:54
--- NOTE | 2023-02-12 20:08 | XRAY Report ---
PROCEDURE: Foot 3 View LT INDICATIONS: pain TECHNIQUE: 3 views of the foot were acquired. COMPARISON: None. FINDINGS: Bones: No fractures or dislocations. No suspicious bony lesions. Soft tissues: No suspicious soft tissue calcifications or masses. IMPRESSION: No visualized acute fracture or dislocation. However, occult injury cannot be excluded. Recommend philip rt interval imaging follow-up in 7-10 days as clinically indicated for additional evaluation. Reviewed by: Cyndee Trevino MD on 02/12/2023 8:07 PM PDT Approved by: Cyndee Trevino MD on 02/12/2023 8:07 PM PDT Station ID: [id number]
--- OUTSIDE RECORDS SUMMARY | 2023-02-12 20:12 | EXTERNAL MEDICAL SUMMARY RPT | Continuity of Care Document ---
Author Name Unknown Address [address] [place] [address] Phone Organization [facility] Address [address] [place] [phone] Phone Results/Labs test date author facility value unit interpretation Result panel 1 (unknown) (no date) (unknown) (unknown) See Separate Report (units unknown) (unknown) Result panel 2 (unknown) (no date) (unknown) (unknown) (no value) (units unknown) 8251-1 (unknown) (no date) (unknown) (unknown) (no value) (units unknown) (unknown) (unknown) (no date) (unknown) (unknown) >10.00 iu/ml (unknown ) (unknown) (no date) (unknown) (unknown) >10.00 iu/ml 71625-9 (unknown) (no date) (unknown) (unknown) >1000.0 miu/ml 60104-7 (unknown) (no date) (unknown) (unknown) >1000.0 miu/ml (unknown ) (unknown) (no date) (unknown) (unknown) 0.02 iu/ml (unknown ) (unknown) (no date) (unknown) (unknown) 0.02 iu/ml 47048-6 (unknown) (no date) (unknown) (unknown) 0.02 iu/ml 15650-0 (unknown) (no date) (unknown) (unknown) 0.04 iu/ml (unknown ) (unknown) (no date) (unknown) (unknown) 0.04 iu/ml 52062-1 (unknown) (no date) (unknown) (unknown) 162.0 au/ml 5244-9 (unknown) (no date) (unknown) (unknown) 162.0 au/ml (unknown ) (unknown) (no date) (unknown) (unknown) 67.4 au/ml 24705-6 (unknown) (no date) (unknown) (unknown) 67.4 au/ml (unknown ) (unknown) (no date) (unknown) (unknown) Negative (units unknown) 91591-9 (unknown) (no date) (unknown) (unknown) Negative (units unknown) (unknown) Result panel 3 (unknown) (no date) (unknown) (unknown) >1000.0 miu/ml (unknown ) (unknown) (no date) (unknown) (unknown) >1000.0 miu/ml (unknown ) Result panel 4 (unknown) (no date) (unknown) (unknown) >1000.0 miu/ml (unknown ) (unknown) (no date) (unknown) (unknown) >1000.0 miu/ml (unknown ) (unknown) (no date) (unknown) (unknown) 162.0 au/ml (unknown ) (unknown) (no date) (unknown) (unknown) 162.0 au/ml (unknown ) Result panel 5 (unknown) (no date) (unknown) (unknown) 63.0 iu/ml (unknown ) (unknown) (no date) (unknown) (unknown) 63.0 iu/ml (unknown ) Result panel 6 (unknown) (no date) (unknown) (unknown) 67.4 au/ml (unknown ) (unknown) (no date) (unknown) (unknown) 67.4 au/ml (unknown ) Result panel 7 (unknown) (no date) (unknown) (unknown) >10.00 iu/ml (unknown ) (unknown) (no date) (unknown) (unknown) 0.02 iu/ml (unknown ) (unknown) (no date) (unknown) (unknown) 0.04 iu/ml (unknown ) (unknown) (no date) (unknown) (unknown) Comment (units unknown) (unknown) (unknown) (no date) (unknown) (unknown) Comment (units unknown) (unknown) (unknown) (no date) (unknown) (unknown) Negative (units unknown) (unknown) (unknown) (no date) (unknown) (unknown) Negative (units unknown) (unknown)
[2023-02-12] MEDS ORDERED: IBUPROFEN 600 MG TABLET PO STA (21:13)
[2023-02-12] MEDS ORDERED: BACITRACIN ZINC OINT 1 PACKET TOP STA (21:14)
--- NOTE | 2023-02-12 21:20 | CT Report ---
PROCEDURE: HEAD WO INDICATIONS: Trauma +LOC TECHNIQUE: Noncontrast 4.5 mm thick angled axial sections acquired from the foramen magnum to the vertex. For r adiation dose reduction, the following was used: automated exposure control, adjustment of mA and/or kV according to patient size. COMPARISON: None. FINDINGS: Image quality: Excellent. CSF spaces: Basal cisterns are patent. No extra-axial fluid collections. Ventricles are normal in size and shape. Brain: No midline shift. No intracranial masses or hemorrhage. Tyson-white matter interface is norm al. Skull and face: Calvarium and visualized facial bones are intact, without suspicious lesions. Sinuses: Visualized sinuses demonstrate scattered areas of mucosal thickening. IMPRESSION: 1. No acute intracranial process. Reviewed by: Cyndee Trevino MD on 02/12/2023 9:18 PM PDT Approved by: Cyndee Trevino MD on 02/12/2023 9:18 PM PDT Station ID: [id number]
[2023-02-12 21:58] VITALS: BP 133/76
== END 2023-02-12 21:54 | disposition home or self-care (01) ==
LOC: ED 19:28
DX: S06.9X9A Unspecified intracranial injury with loss of consciousness of unspecified duration, initial encounter (principal); S91.209A Unspecified open wound of unspecified toe(s) with damage to nail, initial encounter; S99.912A Unspecified injury of left ankle, initial encounter; W19.XXXA Unspecified fall, initial encounter; Y92.832 Beach as the place of occurrence of the external cause
CPT/HCPCS: 70450; 73630; 99283; 99284; A9270

== ENCOUNTER 2023-03-08 22:37 | Emergency (ER) | payer OTHER ==
[2023-03-08] MEDS ORDERED: SODIUM CHLORIDE 0.9% 1,000 ML IV STA (22:56)
[2023-03-08] MEDS ORDERED: KETOROLAC 15 MG/ML VIAL IVP STA (22:56)
[2023-03-08] MEDS ORDERED: ONDANSETRON ODT 4 MG TABLET TL STA (22:56)
--- NOTE | 2023-03-08 23:03 | ED Physician Documentation ---
PD HPI FEMALE - Stated complaint Stated Complaint: FEMALE - Chief complaint Chief Complaint: Abd Pain - History obtained from History obtained from: Patient - Additional information Additional information: Patient presents with 1 week of pelvic cramping and nausea. Has been taking Pamprin and Tylenol without relief. Is on a new oral contraceptive, she is on her last few doses before transitioning to the placebo week. Review of Systems Constitutional: denies: Fever, Chills Cardiac: denies: Chest pain / pressure, Palpitations Respiratory: denies: Dyspnea, Cough, Wheezing GI: reports: Nausea. denies: Abdominal Pain, Vomiting, Constipation, Diarrhea : reports: Control, Other (pelvic pain). 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 : None HEENT: None Psych: Depression, Anxiety, Panic attacks Musculoskeletal: None Derm: None - Past Surgical History Past Surgical History: Yes Ortho: Carpal Tunnel surgery, Other /DRESS CAP MAKER: section, 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 - Present Medications Home Medications: Ambulatory Orders Medication Instructions Recorded Confirmed Alprazolam [Xanax] 0.5 mg PO DAILY PRN 03/08/23 03/08/23 buPROPion HCL [Bupropion Xl] 300 mg PO DAILY 03/08/23 03/08/23 HYDROcod/ACETAM 5/325 [[place] 5/325] 1 - 2 tab PO Q6H PRN #8 tablet 03/09/23 Ondansetron Odt [Zofran] 4 mg TL Q6H PRN #10 tablet 03/09/23 - Allergies Allergies/Adverse Reactions: Allergies Allergy/AdvReac Type Severity Reaction Status Date / Time Penicillins Allergy Severe Rash Verified 03/08/23 22:47 sertraline [From Zoloft] Allergy Unknown Verified 03/08/23 22:47 amoxicillin AdvReac Rash Verified 03/08/23 22:47 clindamycin AdvReac Rash Verified 03/08/23 22:47 ibuprofen AdvReac Unknown Verified 03/08/23 22:47 Underpadding from last CTR AdvReac Severe Rash Uncoded 03/08/23 22:47 - Social History Does the pt smoke?: No Smoking Status: Never smoker Does the pt drink ETOH?: Yes Does the pt have substance abuse?: No - Immunizations Immunizations are current?: Yes Immunizations: TDAP >10years/unknown - POLST Patient has POLST: No PD ED PE NORMAL - Vitals Vital signs reviewed: Yes - General General: Alert and oriented X 3, No acute distress, Well developed/nourished - Neck Neck: Supple, no meningeal sign - Cardiac Cardiac: RRR, No murmur, Strong equal pulses - Respiratory Respiratory: No respiratory distress, Clear bilaterally - Abdomen Abdomen: Soft, Non tender, Non distended - Back Back: No CVA TTP, No spinal TTP - Derm Derm: Normal color, Warm and dry, No rash - Extremities Extremities: No deformity, No tenderness to palpate, Normal ROM s pain - Neuro Neuro: Alert and oriented X 3, expressive therapist 2-12 intact, No motor deficit, Normal speech - Psych Psych: Normal mood, Normal affect Results - Vitals Vitals: Vital Signs - 24 hr 03/08/23 03/09/23 03/09/23 22:39 00:14 02:15 Temperature 36.4 C L Heart Rate 89 53 L Respiratory 17 16 16 Rate Blood Pressure 154/97 H 152/84 H 128/84 H O2 Saturation 100 100 Oxygen O2 Source Room air - Labs Labs: Laboratory Tests 03/08/23 03/08/23 03/08/23 23:06 23:06 23:06 WBC 7.2 RBC 4.60 Hgb 12.1 Hct 38.7 MCV 84.1 MCH 26.3 L MCHC 31.3 L RDW 12.9 Plt Count 229 MPV 11.2 H Neut # (Auto) 3.9 Lymph # (Auto) 2.3 [place] # (Auto) 0.4 Eos # (Auto) 0.5 Baso # (Auto) 0.0 Absolute Nucleated RBC 0.00 Nucleated RBC % 0.0 Sodium 138 Potassium 3.6 Chloride 106 Carbon Dioxide 25 Anion Gap 7.0 BUN 11 Creatinine 0.7 Estimated GFR (MDRD) 95 Glucose 117 H Calcium 8.3 L Total Bilirubin 0.5 AST 18 ALT 23 Alkaline Phosphatase 45 Total Protein 6.9 Albumin 3.9 Globulin 3.0 Albumin/Globulin Ratio 1.3 Lipase 33 Urine Color YELLOW Urine Clarity CLEAR Urine pH 6.5 Ur Specific [place] 1.020 Urine Protein NEGATIVE Urine Glucose (UA) NEGATIVE Urine Ketones NEGATIVE Urine Occult Blood SMALL H Urine Nitrite NEGATIVE Urine Bilirubin NEGATIVE Urine Urobilinogen 0.2 (NORMAL) Ur Leukocyte Esterase NEGATIVE Urine RBC 0-5 Urine WBC 0-3 Ur Squamous Epith Cells MOD Squamous H Urine Bacteria Rare Ur Microscopic Review INDICATED Urine Culture Comments NOT INDICATED Urine HCG, Qual 03/08/23 23:06 WBC RBC Hgb Hct MCV MCH MCHC RDW Plt Count MPV Neut # (Auto) Lymph # (Auto) [place] # (Auto) Eos # (Auto) Baso # (Auto) Absolute Nucleated RBC Nucleated RBC % Sodium Potassium Chloride Carbon Dioxide Anion Gap BUN Creatinine Estimated GFR (MDRD) Glucose Calcium Total Bilirubin AST ALT Alkaline Phosphatase Total Protein Albumin Globulin Albumin/Globulin Ratio Lipase Urine Color Urine Clarity Urine pH Ur Specific [place] Urine Protein Urine Glucose (UA) Urine Ketones Urine Occult Blood Urine Nitrite Urine Bilirubin Urine Urobilinogen Ur Leukocyte Esterase Urine RBC Urine WBC Ur Squamous Epith Cells Urine Bacteria Ur Microscopic Review Urine Culture Comments Urine HCG, Qual NEGATIVE PD Medical Decision Making - ED course Complexity details: reviewed old records, reviewed results, re-evaluated patient, considered differential, d/w patient ED course: Pelvic pain, about to complete a cycle of control. 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 Will check labs, urine, and will give pain meds and nausea meds. Patient requesting additional pain mediations. Will give dose of morphine while imaging is pending. CT imaging negative for acute findings or cause of patient's pain. Labs normal. Patient counseled on results of labs and imaging, I do not know the cause of her pain but it may be related to her control. Patient advised to f/u with obgyn. Patient states unable to take NSAIDs by mouth due to bleeding, so will dc on short course of pain medications. Departure - Departure Disposition: 01 Home, Self Care Clinical Impression: Pelvic pain in female Condition: Stable Instructions: ED Pelvic Pain [facility] Prescriptions: HYDROcod/ACETAM 5/325 [[place] 5/325] 1 - 2 tab PO Q6H PRN #8 tablet PRN Reason: Pain Ondansetron Odt [Zofran] 4 mg TL Q6H PRN #10 tablet PRN Reason: Nausea / Vomiting Forms: PCP List
[2023-03-08 23:12] LABS: BILIRUBIN,URINE NEGATIVE (NEGATIVE); GLUCOSE, URINE (UA) NEGATIVE (NEGATIVE); KETONES,URINE (UA) NEGATIVE (NEGATIVE); LEUKOCYTE ESTERASE, URINE NEGATIVE (NEGATIVE); NITRITE,URINE NEGATIVE (NEGATIVE); OCCULT BLOOD,URINE SMALL (NEGATIVE); PH,URINE 6.5 PH (5.0-7.5); PROTEIN,URINE NEGATIVE (NEGATIVE); UROBILINOGEN,URINE 0.2 (NORMAL) E.U./dL (NORMAL)
[2023-03-08 23:13] LABS: BASOPHILS % (AUTO) 0.6 %; EOSINOPHILS # (AUTO) 0.5 10^3/uL (0.0-0.7); EOSINOPHILS % (AUTO) 6.4 %; HCT - HEMATOCRIT 38.7 % (37.0-47.0); HGB - HEMOGLOBIN 12.1 g/dL (12.0-16.0); LYMPHOCYTES # (AUTO) 2.3 10^3/uL (1.5-3.5); LYMPHOCYTES % (AUTO) 31.9 %; MEAN CORPUSCULAR HEMOGLOBIN 26.3 pg (27.0-31.0); MEAN CORPUSCULAR HGB CONC 31.3 g/dL (32.0-36.0); MEAN CORPUSCULAR VOLUME 84.1 fL (81.0-99.0); MEAN PLATELET VOLUME 11.2 fL (7.9-10.8); MONOCYTES # (AUTO) 0.4 10^3/uL (0.0-1.0); MONOCYTES % (AUTO) 6.1 %; NEUTROPHILS # (AUTO) 3.9 10^3/uL (1.5-6.6); NEUTROPHILS % (AUTO) 54.7 %; PLT - PLATELET COUNT 229 10^3/uL (130-450); RED CELL DISTRIBUTION WIDTH 12.9 % (12.0-15.0); WHITE BLOOD COUNT 7.2 x10^3/uL (4.8-10.8)
[2023-03-08 23:14] LABS: CLARITY,URINE CLEAR (CLEAR); HCG UR QUAL NEGATIVE
[2023-03-08 23:20] LABS: BACTERIA,URINE Rare /HPF (None Seen); RBC,URINE 0-5 /HPF (0-5); SQUAMOUS EPITHELIAL CELL,UR MOD Squamous (<= Few); WBC,URINE 0-3 /HPF (0-5)
--- OUTSIDE RECORDS SUMMARY | 2023-03-08 23:22 | EXTERNAL MEDICAL SUMMARY RPT | Continuity of Care Document ---
Author Name Unknown Address [address] [place] [address] Phone Organization [facility] Address [address] [place] [address] Phone Results/Labs test date facility value unit notes
[2023-03-08 23:26] LABS: ALBUMIN 3.9 g/dL (3.2-5.5); ALBUMIN/GLOBULIN RATIO 1.3 (1.0-2.2); BILIRUBIN,TOTAL 0.5 mg/dL (0.2-1.0); CALCIUM 8.3 mg/dL (8.5-10.3); CREATININE 0.7 mg/dL (0.4-1.0); POTASSIUM 3.6 mmol/L (3.5-5.0); TOTAL PROTEIN 6.9 g/dL (6.7-8.2)
[2023-03-08] MEDS ORDERED: MORPHINE 2 MG/ML CARPUJECT IVP STA (23:42)
[2023-03-09] MEDS ORDERED: PROMETHAZINE INJ 25 MG in SODIUM CHLORIDE 0.9% 50 ML IV STA (02:02)
[2023-03-09] MEDS ORDERED: KETOROLAC 15 MG/ML VIAL IVP STA (02:02)
[2023-03-09] MEDS ORDERED: PROMETHAZINE 25 MG/1 ML VIAL ONE (02:24)
--- NOTE | 2023-03-09 02:29 | CT Report ---
PROCEDURE: ABDOMEN/PELVIS WO INDICATIONS: PELVIC/BACK PAIN TECHNIQUE: A CT scan of the abdomen and pelvis was performed without the use of intravenous contrast. Images we re recorded and evaluated at appropriate window settings. Reformats: coronal and sagittal. For radiat ion dose reduction, the following was used: automated exposure control, adjustment of mA and/or kV ac cording to patient size. COMPARISON: CT abdomen pelvis 01/30/2020. FINDINGS: Image quality: Excellent. Lung bases:There is minimal dependent atelectasis. Heart: Heart is normal in size. ABDOMEN: Liver: No mass lesion. Gallbladder: Within normal limits without calcified gallstones. Biliary ducts: No biliary ductal dilatation. Pancreas: Unremarkable. Spleen: Normal in size. Adrenal Glands: No adrenal nodules. Kidneys and Ureters: No hydronephrosis. Stomach and Bowel: Stomach, small bowel loops, and colon are normal in caliber and wall thickness. T he appendix is normal. Peritoneum:Minimal free fluid in the pelvis appears within physiologic limits. No free air. Ventral Wall: No hernia. Abdominal Nodes: No retroperitoneal or mesenteric adenopathy by size criteria. Vessels: Aorta and inferior vena cava are normal in size. PELVIS: Pelvic Organs: Unremarkable. Bladder: Unremarkable. Pelvic Nodes: No enlarged lymph nodes. Miscellaneous: No inguinal hernias. Bones: Visualized osseous structures demonstrate no suspicious lesions. IMPRESSION: 1. No definite acute intra-abdominal abnormality. Reviewed by: Hal Danielle MD on 03/09/2023 2:28 AM PDT Approved by: Hal Danielle MD on 03/09/2023 2:28 AM PDT Station ID: [id number]
[2023-03-09 03:46] VITALS: BP 166/97
== END 2023-03-09 03:36 | disposition home or self-care (01) ==
LOC: ED 22:37
DX: R10.2 Pelvic and perineal pain (principal); E03.9 Hypothyroidism, unspecified; Z79.899 Other long term (current) drug therapy
CPT/HCPCS: 36415; 74176; 80053; 81001; 81025; 83690; 85025; 96365; 96375; 96376; 99283; 99284; J7040; Q0162; 81003; 87086

== ENCOUNTER 2023-04-01 18:39 | Emergency (ER) | payer OTHER ==
[2023-04-01 18:59] VITALS: O2SAT 100
--- OUTSIDE RECORDS SUMMARY | 2023-04-01 19:07 | EXTERNAL MEDICAL SUMMARY RPT | Continuity of Care Document ---
Author Name Unknown Address [address] [place] [address] Phone Organization [facility] Address [address] [place] [address] Phone Results/Labs test date facility value unit notes
[2023-04-01 19:15] LABS: BASOPHILS # (AUTO) 0.1 10^3/uL (0.0-0.1); BASOPHILS % (AUTO) 1.1 %; EOSINOPHILS # (AUTO) 0.3 10^3/uL (0.0-0.7); HCT - HEMATOCRIT 40.7 % (37.0-47.0); HGB - HEMOGLOBIN 12.8 g/dL (12.0-16.0); LYMPHOCYTES # (AUTO) 2.1 10^3/uL (1.5-3.5); LYMPHOCYTES % (AUTO) 37.2 %; MEAN CORPUSCULAR HGB CONC 31.4 g/dL (32.0-36.0); MEAN CORPUSCULAR VOLUME 82.7 fL (81.0-99.0); MEAN PLATELET VOLUME 11.2 fL (7.9-10.8); MONOCYTES # (AUTO) 0.5 10^3/uL (0.0-1.0); MONOCYTES % (AUTO) 8.2 %; NEUTROPHILS # (AUTO) 2.7 10^3/uL (1.5-6.6); NEUTROPHILS % (AUTO) 48.3 %; PLT - PLATELET COUNT 210 10^3/uL (130-450); RED BLOOD COUNT 4.92 10^6/uL (4.20-5.40); RED CELL DISTRIBUTION WIDTH 13.2 % (12.0-15.0); WHITE BLOOD COUNT 5.6 x10^3/uL (4.8-10.8)
[2023-04-01 19:32] LABS: ALBUMIN 4.3 g/dL (3.2-5.5); ALBUMIN/GLOBULIN RATIO 1.7 (1.0-2.2); BILIRUBIN,TOTAL 0.3 mg/dL (0.2-1.0); CREATININE 0.6 mg/dL (0.6-1.3); POTASSIUM 3.9 mmol/L (3.5-4.5); TOTAL PROTEIN 6.9 g/dL (6.4-8.9)
[2023-04-01 20:02] LABS: BILIRUBIN,URINE NEGATIVE (NEGATIVE); GLUCOSE, URINE (UA) NEGATIVE (NEGATIVE); KETONES,URINE (UA) NEGATIVE (NEGATIVE); LEUKOCYTE ESTERASE, URINE NEGATIVE (NEGATIVE); NITRITE,URINE NEGATIVE (NEGATIVE); OCCULT BLOOD,URINE TRACE-INTA (NEGATIVE); PH,URINE 5.5 PH (5.0-7.5); PROTEIN,URINE NEGATIVE (NEGATIVE); UROBILINOGEN,URINE 0.2 (NORMAL) E.U./dL (NORMAL)
[2023-04-01 20:04] LABS: CLARITY,URINE CLEAR (CLEAR)
[2023-04-01 20:05] LABS: HCG UR QUAL NEGATIVE
[2023-04-01] MEDS ORDERED: MAG HYDROX/AL HYDROX/SIMETH 30 ML UDC PO STA (20:25)
[2023-04-01] MEDS ORDERED: diphenhydrAMINE ELIXIR 25 MG/10 ML UDC PO STA (20:25)
[2023-04-01] MEDS ORDERED: LIDOCAINE VISCOUS 2% 15 ML ORAL SYRINGE MM STA (20:25)
--- NOTE | 2023-04-01 20:29 | ED Physician Documentation ---
History of Present Illness - Stated complaint Stated Complaint: NAUSEA,ABD PX - Chief complaint Chief Complaint: Abd Pain - History obtained from History obtained from: Patient - Additonal information Additional information: 38yF with pmh tye, migraines, anx/depression, recent dx BV s/p antibiotics, psh c section X 3 and laparoscopy, p/w epigastric abdominal pain intermittent X 2 weeks, worse after eating and with lying down, burning/stabbing and tight, radiating up to the chest. she states she had some significant losses last month and drank more heavily than usual. denies fever. +nbnb n/v and nonbloody diarrhea. passing normal gas. 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 : None HEENT: None Psych: Depression, Anxiety, Panic attacks Musculoskeletal: None Derm: None Other Past Medical History: hashimotos - Past Surgical History Past Surgical History: Yes Ortho: Carpal Tunnel surgery, Other /ELEMENTARY EDUCATION TEACHER: section, 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 - Present Medications Home Medications: Ambulatory Orders Medication Instructions Recorded Confirmed Alprazolam [Xanax] 0.5 mg PO DAILY PRN 03/08/23 04/01/23 Albuterol Sulfate [Proair 90 mcg IH Q4HR PRN 04/01/23 04/01/23 Respiclick] Ferrous Gluconate 324 mg PO DAILY 04/01/23 04/01/23 Pantoprazole Sodium [Protonix] 20 mg PO QDAC #30 tab 04/01/23 - Allergies Allergies/Adverse Reactions: Allergies Allergy/AdvReac Type Severity Reaction Status Date / Time Penicillins Allergy Severe Rash Verified 03/08/23 22:47 sertraline [From Zoloft] Allergy Unknown Verified 03/08/23 22:47 amoxicillin AdvReac Rash Verified 03/08/23 22:47 clindamycin AdvReac Rash Verified 03/08/23 22:47 ibuprofen AdvReac Unknown Verified 03/08/23 22:47 Underpadding from last CTR AdvReac Severe Rash Uncoded 03/08/23 22:47 - Social History Does the pt smoke?: No Smoking Status: Never smoker Does the pt drink ETOH?: Yes Does the pt have substance abuse?: No - Immunizations Immunizations are current?: Yes Immunizations: TDAP >10years/unknown - POLST Patient has POLST: No PD ED PE NORMAL - Vitals Vital signs reviewed: Yes - General General: Alert and oriented X 3, No acute distress, Well developed/nourished - HEENT HEENT: Atraumatic, PERRL, EOMI - Neck Neck: Supple, no meningeal sign - Cardiac Cardiac: RRR - Respiratory Respiratory: No respiratory distress, Clear bilaterally - Abdomen Abdomen: Non tender, Non distended, No organomegaly - Back Back: No CVA TTP - Derm Derm: Normal color, Warm and dry - Extremities Extremities: No edema - Neuro Neuro: Alert and oriented X 3 Results - Vitals Vitals: Vital Signs - 24 hr 04/01/23 18:47 Temperature 36.6 C Heart Rate 78 Respiratory 16 Rate Blood Pressure 143/87 H O2 Saturation 100 Oxygen O2 Source Room air - Labs Labs: Laboratory Tests 04/01/23 04/01/23 04/01/23 18:53 19:00 19:00 WBC 5.6 RBC 4.92 Hgb 12.8 Hct 40.7 MCV 82.7 MCH 26.0 L MCHC 31.4 L RDW 13.2 Plt Count 210 MPV 11.2 H Neut # (Auto) 2.7 Lymph # (Auto) 2.1 Page # (Auto) 0.5 Eos # (Auto) 0.3 Baso # (Auto) 0.1 Absolute Nucleated RBC 0.00 Nucleated RBC % 0.0 Sodium 141 Potassium 3.9 Chloride 108 Carbon Dioxide 28 Anion Gap 5.0 L BUN 6 Creatinine 0.6 Estimated GFR (MDRD) 113 Glucose 104 Calcium 9.0 Total Bilirubin 0.3 AST 20 ALT 23 Alkaline Phosphatase 51 Total Protein 6.9 Albumin 4.3 Globulin 2.6 Albumin/Globulin Ratio 1.7 Lipase 20 Urine Color STRAW Urine Clarity CLEAR Urine pH 5.5 Ur Specific [place] <=1.005 Urine Protein NEGATIVE Urine Glucose (UA) NEGATIVE Urine Ketones NEGATIVE Urine Occult Blood TRACE-INTA Urine Nitrite NEGATIVE Urine Bilirubin NEGATIVE Urine Urobilinogen 0.2 (NORMAL) Ur Leukocyte Esterase NEGATIVE Ur Microscopic Review NOT INDICATED Urine Culture Comments NOT INDICATED Urine HCG, Qual NEGATIVE PD Medical Decision Making - ED course ED course: 38yF with several ED visits for n/v/d and abdominal pain presents with the same today. Labwork including cbc, abdominal panel, u/a unremarkable. on exam, patient has epigastric ttp and in combination with the recent history of heavy alcohol use I suspect this is gastritis related. Patient has had no relief with tums or pepcid. GI cocktail provided with improvement. return precautions given. plan to f/u with pcp for referral to GI. Departure - Departure Disposition: Home, Self Care Clinical Impression: Vomiting, Diarrhea, Abdominal pain Condition: Stable Instructions: Tips Control Acid Reflux Follow-Up: Kathy Rosenbaum MD [Physician No Access] - Prescriptions: Pantoprazole Sodium [Protonix] 20 mg PO QDAC #30 tab Comments: You were seen in the emergency department for abdominal pain. Your labwork was normal but I suspect you have acid reflux or even some damage to the stomach lining such as gastritis. A referral to GI has been provided. You'll find enclosed tips for dealing with this condition. I am also going to trial you on protonix, an acid narcisa. A prescription was sent electronically to [facility] pharmacy. Please follow-up with your primary care provider as well and return to the emergency department if you have any new or worsening symptoms or other concerns.
[2023-04-01 20:50] VITALS: BP 121/87
== END 2023-04-01 20:46 | disposition home or self-care (01) ==
LOC: ED 18:39
DX: R10.13 Epigastric pain (principal); R19.7 Diarrhea, unspecified; R11.2 Nausea with vomiting, unspecified; E03.9 Hypothyroidism, unspecified; Z79.899 Other long term (current) drug therapy
CPT/HCPCS: 36415; 80053; 81003; 81025; 83690; 85025; 99283; 99284; A9270; 81001; 87086

== ENCOUNTER 2023-07-19 19:32 | Emergency (ER) | payer MEDICAID, OTHER ==
[2023-07-19 19:49] VITALS: BP 139/103; O2SAT 100
[2023-07-19] MEDS ORDERED: HYDROmorphone 1 MG/ML CARPUJECT IM STA (20:50)
[2023-07-19] MEDS ORDERED: DEXAMETHASONE 10 MG/ML VIAL IM STA (20:50)
--- NOTE | 2023-07-19 20:59 | ED Physician Documentation ---
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 The patient states she is not currently on any immune suppressants or any other medications. 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 She states that she still in the process of being referred to rheumatology. Patient denies any fevers or chills. She states that she does not have any symptoms that are unusual or atypical of her flareups. No other complaints at this time. 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 : None HEENT: None Psych: Depression, Anxiety, Panic attacks Musculoskeletal: None Derm: None Other Past Medical History: Christiane's Disease - Past Surgical History Past Surgical History: Yes Ortho: Carpal Tunnel surgery, Other /CRIMPER OPERATOR: section, 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 - Present Medications Home Medications: Ambulatory Orders Medication Instructions Recorded Confirmed Alprazolam [Xanax] 0.5 mg PO DAILY PRN 03/08/23 07/19/23 Albuterol Sulfate [Proair 90 mcg IH Q4HR PRN 04/01/23 07/19/23 Respiclick] Ferrous Gluconate 324 mg PO DAILY 04/01/23 07/19/23 Ergocalciferol [Vitamin D2] 1 cap PO OAW 07/19/23 07/19/23 HYDROcod/ACETAM 5/325 [[place] 5/325] 1 - 2 tablet PO Q6H PRN #10 tablet 07/19/23 predniSONE [Deltasone] 10 mg PO [id number] #42 tab 07/19/23 - Allergies Allergies/Adverse Reactions: Allergies Allergy/AdvReac Type Severity Reaction Status Date / Time Penicillins Allergy Severe Rash Verified 07/19/23 19:40 sertraline [From Zoloft] Allergy Unknown Verified 07/19/23 19:40 amoxicillin AdvReac Rash Verified 07/19/23 19:40 clindamycin AdvReac Rash Verified 07/19/23 19:40 ibuprofen AdvReac Unknown Verified 07/19/23 19:40 Underpadding from last CTR AdvReac Severe Rash Uncoded 07/19/23 19:40 - Social History Does the pt smoke?: No Smoking Status: Never smoker Does the pt drink ETOH?: Yes Does the pt have substance abuse?: No - Immunizations Immunizations are current?: Yes Immunizations: TDAP >10years/unknown - POLST Patient has POLST: No PD ED PE NORMAL - Vitals Vital signs reviewed: Yes - General General: Alert and oriented X 3, No acute distress, Well developed/nourished - HEENT HEENT: Atraumatic, PERRL, EOMI, Moist mucous membranes - Neck Neck: Supple, no meningeal sign, No bony TTP, Other (Tenderness palpation over left neck musculature with limited range of motion particularly when turning her head to the right.) - Cardiac Cardiac: RRR, No murmur - Respiratory Respiratory: No respiratory distress, Clear bilaterally - Abdomen Abdomen: Soft, Non tender, Non distended - Derm Derm: Warm and dry - Extremities Extremities: No deformity - Neuro Neuro: Alert and oriented X 3 - Psych Psych: Normal mood, Normal affect Results - Vitals Vitals: Vital Signs - 24 hr 07/19/23 19:38 Temperature 36 C L Heart Rate 94 Respiratory 16 Rate Blood Pressure 139/103 H O2 Saturation 100 Oxygen O2 Source Room air PD Medical Decision Making - ED course Complexity details: reviewed results, re-evaluated patient, considered differential, d/w patient ED course: The patient was treated symptomatically for her pain. The symptoms were very typical of prior episodes and I did not feel further workup was indicated. Patient was prescription for symptomatic management at home and we have discussed the usual indications for follow-up and return. Departure - Departure Disposition: Home, Self Care Clinical Impression: Exacerbation of systemic lupus Condition: Stable Instructions: ED Systemic Lupus Erythematosis Prescriptions: predniSONE [Deltasone] 10 mg PO [id number] #42 tab HYDROcod/ACETAM 5/325 [[place] 5/325] 1 - 2 tablet PO Q6H PRN #10 tablet PRN Reason: Pain Comments: Your prescriptions have been electronically transmitted to the [facility] pharmacy in [place]. You may pick them up first thing in the morning. Please do not drive tonight as you have been given sedating medications. Forms: Activity restrictions
== END 2023-07-19 22:00 | disposition home or self-care (01) ==
LOC: ED 19:32
DX: M32.9 Systemic lupus erythematosus, unspecified (principal)
CPT/HCPCS: 96372; 99283; 99284; J1170

== ENCOUNTER 2023-08-09 11:04 | Emergency (ER) | payer MEDICAID ==
[2023-08-09 11:40] LABS: BASOPHILS # (AUTO) 0.1 10^3/uL (0.0-0.1); BASOPHILS % (AUTO) 0.8 %; EOSINOPHILS # (AUTO) 0.1 10^3/uL (0.0-0.7); EOSINOPHILS % (AUTO) 0.9 %; HCT - HEMATOCRIT 42.9 % (37.0-47.0); HGB - HEMOGLOBIN 13.4 g/dL (12.0-16.0); LYMPHOCYTES # (AUTO) 1.7 10^3/uL (1.5-3.5); MEAN CORPUSCULAR HEMOGLOBIN 26.1 pg (27.0-31.0); MEAN CORPUSCULAR HGB CONC 31.2 g/dL (32.0-36.0); MEAN CORPUSCULAR VOLUME 83.6 fL (81.0-99.0); MONOCYTES # (AUTO) 0.3 10^3/uL (0.0-1.0); MONOCYTES % (AUTO) 4.4 %; NEUTROPHILS # (AUTO) 5.6 10^3/uL (1.5-6.6); NEUTROPHILS % (AUTO) 71.3 %; PLT - PLATELET COUNT 230 10^3/uL (130-450); RED BLOOD COUNT 5.13 10^6/uL (4.20-5.40); RED CELL DISTRIBUTION WIDTH 14.1 % (12.0-15.0); WHITE BLOOD COUNT 7.8 x10^3/uL (4.8-10.8)
--- NOTE | 2023-08-09 11:45 | ED Physician Documentation ---
PD HPI CHEST PAIN - Stated complaint Stated Complaint: L ARM WEAKNESS, CHESTPX - Chief complaint Chief Complaint: Cardiac - History obtained from History obtained from: Patient, Family - Additional information Additional information: Patient this is a 38-year-old female who has a history of possible lupus according to her, and has been seen recently for body aches and pains, particularly the left side of the neck into the left arm but then gets achy and swollen throughout her body. She has been referred to rheumatology and has not had her first visit yet but plans to call tomorrow to make an appointment. She has been seen by her PCP and here and has been on steroids for the last couple of weeks, she has been on a steroid taper and since she moved down to 20 mg tablets a few days ago she started to have increasing pain, particularly in the left neck from the SCM into the left shoulder. It also goes into the left chest wall. She states it worsened after she dropped down to the 10 mg tablet and she was concerned it was related to the steroids. She has not had a fever or chills, no difficulty breathing, no abdominal pain nausea vomiting or diarrhea. She states her periods have not been irregular since starting the steroids but she denies any chance of . She states previously she did get some Pattison that helped, Tylenol alone is not sufficient and that she is not able to take NSAIDs. She denies any new injuries, no lifting or twisting, has not been able to be very active because she gets so fatigued and uncomfortable when she tries to do even small things like walking or getting out of bed. Today, she was at work, when the pain worsened, and it radiated into the chest, and cause some brief left arm weakness and blurry vision though all that has resolved. Review of Systems Constitutional: reports: Fatigue Cardiac: reports: Chest pain / pressure. denies: Pedal edema, Calf pain Respiratory: reports: Reviewed and negative GI: reports: Reviewed and negative : reports: Reviewed and negative Skin: reports: Reviewed and negative Musculoskeletal: reports: Neck pain, Back pain, Extremity pain, Joint pain, Extremity swelling, Joint swelling Neurologic: reports: Generalized weakness. 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 : None HEENT: None Psych: Depression, Anxiety, Panic attacks Musculoskeletal: None Derm: None Other Past Medical History: Hashimotos - Past Surgical History Past Surgical History: Yes Ortho: Carpal Tunnel surgery, Other /MECHANICAL MANUFACTURING ENGINEER: section, 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 - Present Medications Home Medications: Ambulatory Orders Medication Instructions Recorded Confirmed Alprazolam [Xanax] 0.5 mg PO DAILY PRN 03/08/23 07/19/23 Albuterol Sulfate [Proair 90 mcg IH Q4HR PRN 04/01/23 07/19/23 Respiclick] Ferrous Gluconate 324 mg PO DAILY 04/01/23 07/19/23 Ergocalciferol [Vitamin D2] 1 cap PO OAW 07/19/23 07/19/23 HYDROcod/ACETAM 5/325 [Pattison 5/325] 1 - 2 tablet PO Q6H PRN #10 tablet 07/19/23 predniSONE [Deltasone] 10 mg PO [id number] #42 tab 07/19/23 HYDROcod/ACETAM 5/325 [Pattison 5/325] 1 - 2 tablet PO Q6H PRN #14 tablet 08/09/23 - Allergies Allergies/Adverse Reactions: Allergies Allergy/AdvReac Type Severity Reaction Status Date / Time Penicillins Allergy Severe Rash Verified 08/09/23 11:13 sertraline [From Zoloft] Allergy Unknown Verified 08/09/23 11:13 amoxicillin AdvReac Rash Verified 08/09/23 11:13 clindamycin AdvReac Rash Verified 08/09/23 11:13 ibuprofen AdvReac Unknown Verified 08/09/23 11:13 Underpadding from last CTR AdvReac Severe Rash Uncoded 08/09/23 11:13 - Social History Does the pt smoke?: No Smoking Status: Never smoker Does the pt drink ETOH?: Yes Does the pt have substance abuse?: No - Immunizations Immunizations are current?: Yes Immunizations: TDAP >10years/unknown - POLST Patient has POLST: No PD ED PE NORMAL - Vitals Vital signs reviewed: Yes - General General: Alert and oriented X 3, No acute distress, Well developed/nourished - HEENT HEENT: Atraumatic, Moist mucous membranes - Neck Neck: Supple, no meningeal sign, No bony TTP, No adenopathy, No JVD, Other (Tenderness with palpation of the left SCM into the trapezius muscle) - Cardiac Cardiac: RRR, No murmur, No gallop, No rub - Respiratory Respiratory: No respiratory distress, Clear bilaterally - Abdomen Abdomen: Normal bowel sounds, Soft, Non tender, Non distended - Derm Derm: Normal color, Warm and dry, No rash, Other (Recurrent butterfly rash on the cheeks bilaterally.) - Extremities Extremities: No deformity, No tenderness to palpate, Normal ROM s pain, No edema , No calf tenderness / cord - Neuro Neuro: Alert and oriented X 3, No motor deficit, No sensory deficit, Normal speech Eye Opening: Spontaneous Motor: Obeys Commands Verbal: Oriented GCS Score: 15 - Psych Psych: Normal mood, Normal affect Results - Vitals Vitals: Vital Signs - 24 hr 08/09/23 08/09/23 11:07 12:12 Temperature 36 C L Heart Rate 92 96 Respiratory 16 18 Rate Blood Pressure 139/97 H 157/113 H O2 Saturation 100 96 Oxygen O2 Source Room air - EKG (time done) No standard instances EKG releavant findings:: EKG personally interpreted by author of this note. Relevant findings are: Rate: Rate (enter#) Rhythm: NSR [place]: Normal Intervals: Normal DC QRS: Normal Ischemia: Normal ST segments Compare to prior EKG: Unchanged from prior EKG Computer interpretation: Agree with computer - Labs Labs: Laboratory Tests 08/09/23 08/09/23 11:36 11:36 WBC 7.8 RBC 5.13 Hgb 13.4 Hct 42.9 MCV 83.6 MCH 26.1 L MCHC 31.2 L RDW 14.1 Plt Count 230 MPV 10.0 Neut # (Auto) 5.6 Lymph # (Auto) 1.7 [place] # (Auto) 0.3 Eos # (Auto) 0.1 Baso # (Auto) 0.1 Absolute Nucleated RBC 0.00 Nucleated RBC % 0.0 Sodium 139 Potassium 3.9 Chloride 101 Carbon Dioxide 30 Anion Gap 8.0 BUN 9 Creatinine 0.7 Estimated GFR (MDRD) 95 Glucose 125 H Calcium 9.4 Total Bilirubin 0.4 AST 17 ALT 21 Alkaline Phosphatase 47 Troponin I High Sens 2.3 Total Protein 7.4 Albumin 4.8 Globulin 2.6 Albumin/Globulin Ratio 1.8 Lipase 16 PD Medical Decision Making - ED course Complexity details: reviewed results, re-evaluated patient, considered dif ferential, d/w patient ED course: 38-year-old female currently being worked up outpatient for possible lupus and who is on s steroid taper presents with left and neck pain that has been going on but worsening over the last that worsened today and she had some chest pain as well as brief left arm numbness that resolved prior to arrival. Patient attributes this all to titrating down on her steroids and is wondering if she needs additional steroids or pain medication. She arrives here in good condition, her vital signs are stable she is nontoxic and in no acute distress, her physical exam is unremarkable, I cannot really appreciate any of the swelling the patient is referring to but certainly may be present compared to baseline, and there are no acute injuries on exam. We did collect labs which are stable, her EKG shows no acute ischemic changes, troponin is negative. I discussed with patient that this may be due to to titration of her steroids but I would be hesitant to update them further until she sees rheumatology given the potential complications of long-term steroid use. The patient understands and does plan to see rheumatology soon as possible to get additional lab testing done. I will give the patient a short course of pain medication which was requested, she did well with Pattison in the past and understands that she cannot get repeated refills from the ER but to follow-up further with her PCP if she needs ongoing pain management. I do not think additional testing is needed here in the ER today but would like the patient to see rheumatology and her PCP within the next week or so for monitoring. She will continue her steroid taper. Departure - Departure Disposition: 01 Home, Self Care Clinical Impression: Atypical chest pain Condition: Good Instructions: ED Chest Pain NonCardiac Prescriptions: HYDROcod/ACETAM 5/325 [Pattison 5/325] 1 - 2 tablet PO Q6H PRN #14 tablet PRN Reason: Pain Comments: Sushila, your labs and EKG today are stable, there is no sign of heart injury today. Please continue follow-up with rheumatology as soon as you can to get the additional workup. For now, continue titrating down off the steroids. If there may be a period of adjustment as your body gets used to not having the higher dose. During that time, I will give you a short course of hydrocodone to use only as needed. Please follow-up with PCP for any further pain medicines. I am prescribing a short course of narcotic pain medication for you. These are potentially dangerous and addictive medications that should be used carefully. These medications may constipate you. Take an uygy-zml-[id number] stool softener (docusate) twice daily with plenty of water while taking these medications. If you go 24 hours without a bowel movement, take efrq-ciw-bdortey miralax, per package instructions. Do not drink or drive while taking these medications. If you received narcotic or sedating medications while in the emergency department, do not drive for 24 hours. Store this medication in a safe, secure place and out of reach of children. It is a violation of federal law to give or sell this medication to another person or to use in a manner other than prescribed. The ED will not refill narcotic prescriptions, including prescriptions lost or stolen. To dispose of unwanted medications: 1. [facility] provides a drop box for medication in pill form only (no liquids) 8:00 am to 4:30 p.m. Tuesday-Tuesday in the lobby of the [facility], [address] [place] [address]. Empty pills into ziplock bag before disposal. Call [phone] for information. 2.[employer] is a free service available to all [facility] residents. Go to [email or web address] Note that many narcotic pain relievers also contain Tylenol/acetaminophen. Please ensure that your total dose of acetaminophen from all sources does not exceed 3 g (3000 mg) per day. Forms: PCP List Discharge Date/Time: 08/09/23 12:23
[2023-08-09 11:57] LABS: ALBUMIN 4.8 g/dL (3.2-5.5); ALBUMIN/GLOBULIN RATIO 1.8 (1.0-2.2); BILIRUBIN,TOTAL 0.4 mg/dL (0.2-1.0); CALCIUM 9.4 mg/dL (8.5-10.3); CREATININE 0.7 mg/dL (0.6-1.3); POTASSIUM 3.9 mmol/L (3.5-4.5); TOTAL PROTEIN 7.4 g/dL (6.4-8.9)
[2023-08-09 12:11] LABS: TROPONIN I HIGH SENSITIVITY 2.3 ng/L (2.3-14.8)
[2023-08-09 12:13] VITALS: BP 157/113; O2SAT 96
[2023-08-09] MEDS ORDERED: HYDROcod/ACETAM 5/325 MG TABLET PO STA (12:14)
== END 2023-08-09 12:23 | disposition home or self-care (01) ==
LOC: ED 11:04
DX: R07.89 Other chest pain (principal)
CPT/HCPCS: 36415; 80053; 83690; 84484; 85025; 93005; 99283; 99284; A9270

== ENCOUNTER 2023-08-14 00:55 | Emergency (ER) | payer MEDICAID, OTHER ==
[2023-08-14 01:55] VITALS: O2SAT 100
--- NOTE | 2023-08-14 02:36 | ED Physician Documentation ---
History of Present Illness - Stated complaint Stated Complaint: SI - Chief complaint Chief Complaint: MHE - History obtained from History obtained from: Patient, Police - Additonal information Additional information: Patient is brought to ED by police. HPI from patient as well as police including form from [facility]'s Office titled "Emergent mental health/substance abuse report" which has security police officer's narrative of the events that led to patient being brought to ED. Said form indicates patient's significant other called police due to patient "had been drinking, threatened suicide, was mentally unstable, and 'tried to put hands' on the caller." The narrative includes mention that patient has a gun which was eventually located in patient's car, "fully loaded with hollow point bullets." The narrative ends with indication that the officer provided the significant other "a receipt for the gun, two magazines, and 37 9mm bullets." Patient admits to drinking alcohol tonight, says she had a total of three beers and no other alcohol tonight. She adamantly denies she made any suicidal threats or statements. She readily admits to owning a handgun and says it is a legally- owned, registered weapon. She is requesting discharge home, says she will call someone to ask them to come pick her up. 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 : None HEENT: None Psych: Depression, Anxiety, Panic attacks Musculoskeletal: None Derm: None - Past Surgical History Past Surgical History: Yes Ortho: Carpal Tunnel surgery, Other /SET UP PERSON: section, 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 - Present Medications Home Medications: Ambulatory Orders Medication Instructions Recorded Confirmed Alprazolam [Xanax] 0.5 mg PO DAILY PRN 03/08/23 07/19/23 Albuterol Sulfate [Proair 90 mcg IH Q4HR PRN 04/01/23 07/19/23 Respiclick] Ferrous Gluconate 324 mg PO DAILY 04/01/23 07/19/23 Ergocalciferol [Vitamin D2] 1 cap PO OAW 07/19/23 07/19/23 HYDROcod/ACETAM 5/325 [[place] 5/325] 1 - 2 tablet PO Q6H PRN #10 tablet 07/19/23 predniSONE [Deltasone] 10 mg PO [id number] #42 tab 07/19/23 HYDROcod/ACETAM 5/325 [[place] 5/325] 1 - 2 tablet PO Q6H PRN #14 tablet 08/09/23 - Allergies Allergies/Adverse Reactions: Allergies Allergy/AdvReac Type Severity Reaction Status Date / Time Penicillins Allergy Severe Rash Verified 08/09/23 11:13 sertraline [From Zoloft] Allergy Unknown Verified 08/09/23 11:13 amoxicillin AdvReac Rash Verified 08/09/23 11:13 clindamycin AdvReac Rash Verified 08/09/23 11:13 ibuprofen AdvReac Unknown Verified 08/09/23 11:13 Underpadding from last CTR AdvReac Severe Rash Uncoded 08/09/23 11:13 - Social History Does the pt smoke?: No Smoking Status: Never smoker Does the pt drink ETOH?: Yes Does the pt have substance abuse?: No - Immunizations Immunizations are current?: Yes Immunizations: TDAP >10years/unknown - POLST Patient has POLST: No PD ED PE NORMAL - Vitals Vital signs reviewed: Yes - General General: Alert and oriented X 3, No acute distress, Well developed/nourished, Ot her (mildly slurred speech) - Cardiac Cardiac: RRR, No murmur - Respiratory Respiratory: No respiratory distress, Clear bilaterally - Neuro Neuro: Alert and oriented X 3 Eye Opening: Spontaneous Motor: Obeys Commands Verbal: Oriented GCS Score: 15 Results - Vitals Vitals: Vital Signs - 24 hr 08/14/23 01:47 Temperature 36.7 C Heart Rate 115 H Respiratory 22 Rate Blood Pressure 145/98 H O2 Saturation 100 Oxygen O2 Source Room air - Labs Labs: Laboratory Tests 08/14/23 08/14/23 08/14/23 02:58 02:58 03:48 WBC 7.5 RBC 5.25 Hgb 13.7 Hct 44.1 MCV 84.0 MCH 26.1 L MCHC 31.1 L RDW 13.8 Plt Count 301 MPV 10.1 Neut # (Auto) 5.1 Lymph # (Auto) 1.9 [place] # (Auto) 0.3 Eos # (Auto) 0.0 Baso # (Auto) 0.1 Absolute Nucleated RBC 0.00 Nucleated RBC % 0.0 Sodium 145 Potassium 4.2 Chloride 108 Carbon Dioxide 25 Anion Gap 12.0 BUN 8 Creatinine 0.8 Estimated GFR (MDRD) 81 L Glucose 178 H Calcium 9.6 Magnesium 2.3 Total Bilirubin 0.3 AST 26 ALT 30 Alkaline Phosphatase 55 Total Creatine Kinase 209 Total Protein 8.0 Albumin 5.2 Globulin 2.8 Albumin/Globulin Ratio 1.9 Lipase 22 TSH 0.90 Urine Color LT RED Urine Clarity c Urine pH 7.5 Ur Specific [place] 1.010 Urine Protein 30 H Urine Glucose (UA) NEGATIVE Urine Ketones NEGATIVE Urine Occult Blood LARGE H Urine Nitrite NEGATIVE Urine Bilirubin NEGATIVE Urine Urobilinogen 0.2 (NORMAL) Ur Leukocyte Esterase TRACE H Urine RBC 6-10 H Urine WBC 0-3 Ur Squamous Epith Cells MOD Squamous H Urine Bacteria Rare Ur Microscopic Review INDICATED Urine Culture Comments NOT INDICATED Urine HCG, Qual NEGATIVE Salicylates < 1.5 Urine Opiates Screen POSITIVE H Ur Buprenorphine Scrn NEGATIVE Ur Oxycodone Screen NEGATIVE Urine Methadone Screen NEGATIVE Acetaminophen 0.3 Ur Barbiturates Screen NEGATIVE Ur Tricyclics Screen NEGATIVE Ur Phencyclidine Scrn NEGATIVE Ur Amphetamine Screen NEGATIVE U Methamphetamines Scrn NEGATIVE U Benzodiazepines Scrn POSITIVE H Urine Cocaine Screen NEGATIVE U Cannabinoids Screen NEGATIVE Ur Drug Screen Comment CUTOFF CONC BELOW: Ethyl Alcohol 249.7 08/14/23 06:50 WBC RBC Hgb Hct MCV MCH MCHC RDW Plt Count MPV Neut # (Auto) Lymph # (Auto) [place] # (Auto) Eos # (Auto) Baso # (Auto) Absolute Nucleated RBC Nucleated RBC % Sodium Potassium Chloride Carbon Dioxide Anion Gap BUN Creatinine Estimated GFR (MDRD) Glucose Calcium Magnesium Total Bilirubin AST ALT Alkaline Phosphatase Total Creatine Kinase Total Protein Albumin Globulin Albumin/Globulin Ratio Lipase TSH Urine Color Urine Clarity Urine pH Ur Specific [place] Urine Protein Urine Glucose (UA) Urine Ketones Urine Occult Blood Urine Nitrite Urine Bilirubin Urine Urobilinogen Ur Leukocyte Esterase Urine RBC Urine WBC Ur Squamous Epith Cells Urine Bacteria Ur Microscopic Review Urine Culture Comments Urine HCG, Qual Salicylates Urine Opiates Screen Ur Buprenorphine Scrn Ur Oxycodone Screen Urine Methadone Screen Acetaminophen Ur Barbiturates Screen Ur Tricyclics Screen Ur Phencyclidine Scrn Ur Amphetamine Screen U Methamphetamines Scrn U Benzodiazepines Scrn Urine Cocaine Screen U Cannabinoids Screen Ur Drug Screen Comment Ethyl Alcohol 161.2 PD Medical Decision Making - ED course Complexity details: reviewed results, considered differential, d/w patient ED course: Patient denies SI and disputes the events described in the narrative on the police form. There are several concerning aspects of the narrative and thus I explained to patient that I am ordering blood and urine tests and that further discussion/evaluation of the situation will depend on results of these tests, particularly the alcohol level and the results of the urine drug screen. I further explained that reassessment would be appropriate when her alcohol level is consistent with sobriety (below 0.08). There are no concerning findings on CBC, ER abdominal panel. TSH is normal. Urine hCG is negative. Urine drug screen is positive for opiates and benzodiazepines; I do see a recent prescription fills for Vicodin as as well is lorazepam, which would obviously explain the urine drug screen results. Patient's serum ethanol level is 249.7. I estimate redraw (aiming for below 80) would be appropriate at 10 AM (based on 25/hr metabolism). Care of patient is turned over to oncoming ED physician (Dr. Escudero) at end of my shift Departure - Departure Forms: PCP List
[2023-08-14 03:05] LABS: BASOPHILS # (AUTO) 0.1 10^3/uL (0.0-0.1); BASOPHILS % (AUTO) 0.9 %; EOSINOPHILS % (AUTO) 0.5 %; HCT - HEMATOCRIT 44.1 % (37.0-47.0); HGB - HEMOGLOBIN 13.7 g/dL (12.0-16.0); LYMPHOCYTES # (AUTO) 1.9 10^3/uL (1.5-3.5); LYMPHOCYTES % (AUTO) 25.5 %; MEAN CORPUSCULAR HEMOGLOBIN 26.1 pg (27.0-31.0); MEAN CORPUSCULAR HGB CONC 31.1 g/dL (32.0-36.0); MEAN PLATELET VOLUME 10.1 fL (7.9-10.8); MONOCYTES # (AUTO) 0.3 10^3/uL (0.0-1.0); MONOCYTES % (AUTO) 4.4 %; NEUTROPHILS # (AUTO) 5.1 10^3/uL (1.5-6.6); NEUTROPHILS % (AUTO) 68.3 %; PLT - PLATELET COUNT 301 10^3/uL (130-450); RED BLOOD COUNT 5.25 10^6/uL (4.20-5.40); RED CELL DISTRIBUTION WIDTH 13.8 % (12.0-15.0); WHITE BLOOD COUNT 7.5 x10^3/uL (4.8-10.8)
[2023-08-14 04:24] LABS: BILIRUBIN,URINE NEGATIVE (NEGATIVE); GLUCOSE, URINE (UA) NEGATIVE (NEGATIVE); KETONES,URINE (UA) NEGATIVE (NEGATIVE); LEUKOCYTE ESTERASE, URINE TRACE (NEGATIVE); NITRITE,URINE NEGATIVE (NEGATIVE); OCCULT BLOOD,URINE LARGE (NEGATIVE); PH,URINE 7.5 PH (5.0-7.5); PROTEIN,URINE 30 mg/dL (NEGATIVE); UROBILINOGEN,URINE 0.2 (NORMAL) E.U./dL (NORMAL)
[2023-08-14 04:37] LABS: CLARITY,URINE c (CLEAR)
[2023-08-14 04:38] LABS: HCG UR QUAL NEGATIVE; WBC,URINE 0-3 /HPF (0-5)
[2023-08-14 04:39] LABS: AMPHETAMINE SCREEN,URINE NEGATIVE (NEGATIVE); BACTERIA,URINE Rare /HPF (None Seen); BARBITURATE SCREEN,UR NEGATIVE (NEGATIVE); BENZODIAZEPINES SCREEN, URINE POSITIVE (NEGATIVE); BUPRENORPHINE SCREEN, URINE NEGATIVE (NEGATIVE); COCAINE SCREEN URINE NEGATIVE (NEGATIVE); METHADONE SCREEN, URINE NEGATIVE (NEGATIVE); METHAMPHETAMINES SCREEN, URINE NEGATIVE (NEGATIVE); OPIATE SCREEN, URINE POSITIVE (NEGATIVE); OXYCODONE SCREEN, URINE NEGATIVE (NEGATIVE); SQUAMOUS EPITHELIAL CELL,UR MOD Squamous (<= Few); THC CANNABINOID SCREEN, URINE NEGATIVE (NEGATIVE); TRICYCLIC ANTIDEPRESSANT,URINE NEGATIVE (NEGATIVE)
[2023-08-14 05:11] LABS: ACETAMINOPHEN 0.3 ug/mL; ALBUMIN 5.2 g/dL (3.2-5.5); ALBUMIN/GLOBULIN RATIO 1.9 (1.0-2.2); ALKALINE PHOSPHATASE 55 IU/L (42-121); ALT ALANINE AMINOTRANSFERASE 30 IU/L (10-60); AST ASPARTATE AMINOTRANSFERASE 26 IU/L (10-42); BILIRUBIN,TOTAL 0.3 mg/dL (0.2-1.0); BUN - BLOOD UREA NITROGEN 8 mg/dL (6-20); CALCIUM 9.6 mg/dL (8.5-10.3); CARBON DIOXIDE - CO2 25 mmol/L (21-32); CHLORIDE 108 mmol/L (101-111); CK- CREATINE KINASE 209 IU/L (30-223); CREATININE 0.8 mg/dL (0.6-1.3); ETOH - ETHANOL 249.7 mg/dL; GFR - MDRD 81 (>89); GLUCOSE 178 mg/dL (74-104); LIPASE 22 U/L (11-82); MAGNESIUM 2.3 mg/dL (1.7-2.3); POTASSIUM 4.2 mmol/L (3.5-4.5); SODIUM 145 mmol/L (135-145)
[2023-08-14 05:21] LABS: SALICYLATE < 1.5 mg/dL
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
[2023-08-14 12:42] VITALS: BP 132/68
== END 2023-08-14 12:41 | disposition home or self-care (01) ==
LOC: EDUNIT# → ED 00:55
DX: F10.129 Alcohol abuse with intoxication, unspecified (principal); Y90.8 Blood alcohol level of 240 mg/100 ml or more
CPT/HCPCS: 36415; 80053; 80306; 80307; 80320; 80329; 81001; 81003; 81025; 82550; 83690; 83735; 84443; 85025; 87086; 99283; 99284

== ENCOUNTER 2023-09-30 16:55 | Emergency (ER) | payer BC, MEDICAID ==
[2023-09-30 17:18] VITALS: O2SAT 100
[2023-09-30 18:16] LABS: B. PARAPERTUSSIS- RESP PCR PAN NOT DETECTED; B. PERTUSSIS- RESP PCR PANEL NOT DETECTED; C. PNEUMONIAE- RESP PCR PANEL NOT DETECTED; CORONAVIRUS 229E-RESP PCR NOT DETECTED; CORONAVIRUS HKU1-RESP PCR NOT DETECTED; CORONAVIRUS NL63-RESP PCR NOT DETECTED; CORONAVIRUS OC43-RESP PCR NOT DETECTED; HUMAN METAPNEUMOVIRUS NOT DETECTED; INFLUENZA A- RESP PCR PANEL NOT DETECTED; INFLUENZA B - RESP PCR PANEL NOT DETECTED; M. PNEUMONIAE- RESP PCR PANEL NOT DETECTED; PARAINFLUENZA VIRUS 1 NOT DETECTED; PARAINFLUENZA VIRUS 2 NOT DETECTED; PARAINFLUENZA VIRUS 3 NOT DETECTED; PARAINFLUENZA VIRUS 4 NOT DETECTED; RHINOVIRUS/ENTEROVIRUS NOT DETECTED; RSV- RESP PCR PANEL NOT DETECTED; SARS-CoV-2 -RESP PCR PANEL NOT DETECTED
--- NOTE | 2023-09-30 19:58 | ED Physician Documentation ---
History of Present Illness - Stated complaint Stated Complaint: NECK PX/SWELLING - Chief complaint Chief Complaint: General - Additonal information Additional information: 38-year-old female presents emergency department today for concerns of left breast pain/lump and and concerns of full body aches with lupus flare. Patient said that she is never seen a retort setter for lupus and said that one of the would be docs is able to do chart review and saw some sort of lab that was indicative of lupus in her past. Patient also says that she feels like she is having a Christiane's flare she says that she does not take any levothyroxine for Christiane's disease and is able to manage it with strict diet and exercise. She has an appointment with rheumatology on Tuesday but she feels like she is not able to last until then and was hoping to get pain medications and steroid shot and steroid taper. She was seen at walk-in clinic she said that they told her they are going to give her steroid taper she is that she went to go pick it up from [facility] but it was not there. She has generalized bodyaches and feels like she is having enlarged lymph nodes of her neck. No fevers or chills no nausea or vomiting. 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 : None HEENT: None Psych: Depression, Anxiety, Panic attacks Musculoskeletal: None Derm: None - Past Surgical History Past Surgical History: Yes Ortho: Carpal Tunnel surgery, Other /ACCOUNTS RECEIVABLE COLLECTOR: section, 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 - Present Medications Home Medications: Ambulatory Orders Medication Instructions Recorded Confirmed Alprazolam [Xanax] 0.5 mg PO DAILY PRN 03/08/23 09/30/23 Albuterol Sulfate [Proair 90 mcg IH Q4HR PRN 04/01/23 09/30/23 Respiclick] Ferrous Gluconate 324 mg PO DAILY 04/01/23 09/30/23 Ergocalciferol [Vitamin D2] 1 cap PO OAW 07/19/23 09/30/23 Fluticasone Propionate 100 mcg IH DAILY 09/30/23 09/30/23 buPROPion HCL [Bupropion Xl] 150 mg PO DAILY 09/30/23 09/30/23 predniSONE [Deltasone] 20 mg PO [id number] #21 tab 09/30/23 - Allergies Allergies/Adverse Reactions: Allergies Allergy/AdvReac Type Severity Reaction Status Date / Time Penicillins Allergy Severe Rash Verified 09/30/23 17:18 sertraline [From Zoloft] Allergy Unknown Verified 09/30/23 17:18 amoxicillin AdvReac Rash Verified 09/30/23 17:18 clindamycin AdvReac Rash Verified 09/30/23 17:18 ibuprofen AdvReac Unknown Verified 09/30/23 17:18 Underpadding from last CTR AdvReac Severe Rash Uncoded 09/30/23 17:18 - Social History Does the pt smoke?: No Smoking Status: Never smoker Does the pt drink ETOH?: Yes Does the pt have substance abuse?: No - Immunizations Immunizations are current?: Yes Immunizations: TDAP >10years/unknown - POLST Patient has POLST: No PD ED PE NORMAL - Vitals Vital signs reviewed: Yes - General General: Alert and oriented X 3, No acute distress, Well developed/nourished - HEENT HEENT: Atraumatic, Other (Flushed cheeks) - Neck Neck: Supple, no meningeal sign, No adenopathy, Thyroid normal - Cardiac Cardiac: RRR, No murmur, No gallop, Strong equal pulses - Respiratory Respiratory: No respiratory distress, Clear bilaterally - Abdomen Abdomen: Normal bowel sounds, Soft - Derm Derm: Normal color, Warm and dry, No rash - Free text exam Free text exam: No lump palpated on chest, breast, ribs. Results - Vitals Vitals: Vital Signs - 24 hr 09/30/23 09/30/23 17:16 20:19 Temperature 36.2 C L Heart Rate 102 H 80 Respiratory 20 16 Rate Blood Pressure 141/84 H 146/95 H O2 Saturation 100 100 Oxygen O2 Source Room air - Labs Labs: Laboratory Tests 09/30/23 17:21 Nasal Adenovirus (PCR) NOT DETECTED Nasal B. parapertussis DNA (PCR) NOT DETECTED Nasal Coronavir 229E PCR NOT DETECTED Nasal Coronavir HKU1 PCR NOT DETECTED Nasal Coronavir NL63 PCR NOT DETECTED Nasal Coronavir OC43 PCR NOT DETECTED Nasal Enterovir/Rhinovir PCR NOT DETECTED Nasal Influenza B PCR NOT DETECTED Nasal Influenza A PCR NOT DETECTED Nasal Parainfluen 1 PCR NOT DETECTED Nasal Parainfluen 2 PCR NOT DETECTED Nasal Parainfluen 3 PCR NOT DETECTED Nasal Parainfluen 4 PCR NOT DETECTED Nasal RSV (PCR) NOT DETECTED Nasal B.pertussis DNA PCR NOT DETECTED Nasal C.pneumoniae (PCR) NOT DETECTED Mike Human Metapneumo PCR NOT DETECTED Nasal M.pneumoniae (PCR) NOT DETECTED Nasal SARS-CoV-2 (PCR) NOT DETECTED PD Medical Decision Making - ED course ED course: 38-year-old female presents emergency department for concerns of lump on her breast and concerns of lupus flare. When I went to go to my physical exam patient says actually is not on my breast is just below her breast but I was told that I have mastoiditis from walk-in clinic provider. When I palpate along her rib region where patient said that she feels a lump I was unable to palpate any inflammation no masses no lumps or bumps. There is no skin changes concerning for possible early shingles outbreak. Patient was given a one-time dose of 20 mg intramuscular dexamethasone I was able to do a chart review and see that this is what has worked for her in the past. Patient was also seen here in early August for suicidal attempt with benzos and narcotics and alcohol consumption. I was also able to see that a prescription of 42 pills of hydrocodone was prescribed to the patient 09/13/2023. When I asked the patient about this she said that this was never prescribed to her and she never picked this medication up and that this primary care provider does not take her insurance anymore and so she is having to switch to a new primary care provider.) The patient that unfortunately I am not able to prescribe her any additional pain medications because of this but that I be more than willing to give her a dose of hydrocodone while she is here in the emergency department she was agreeable to. She was quite upset and flustered that she is unable to get additional pain medications I informed her to follow-up with Willi tomorrow to ask her about the pain medications that were prescribed to her in early September that she winnie arently had not picked up yet. She has a rheumatology appointment Tuesday morning that she is eager to go to I told her that it would be really important that she prioritizes this and make sure she does not miss this appointment. Patient was also given a prednisone taper and she was given ER return precautions. I do not believe she has mastoiditis I am not able to palpate any lump on her chest and I do not believe that there needs to be any further workup for this at this time. Departure - Departure Disposition: Home, Self Care Clinical Impression: Lupus (systemic lupus erythematosus) Qualifiers: Systemic lupus erythematosus type: unspecified Systemic lupus erythematosus organ involvement: unspecified Qualified Code(s): M32.9 - Systemic lupus erythematosus, unspecified Instructions: METHYLPREDNISOLONE, Oral Prescriptions: predniSONE [Deltasone] 20 mg PO [id number] #21 tab Comments: Please follow-up with your retort setter first thing Tuesday make sure that you do everything you can to not miss that appointment. I have sent a steroid taper to Willi for you to sisal picker first thing tomorrow to start your steroid taper. We were unable to prescribe you additional pain medication because it appears that you have had 42 pills prescribed to you recently. Please follow-up with Ivan King tomorrow to see if this is still something you are able to sisal picker or not. Forms: PCP List Discharge Date/Time: 09/30/23 21:03
[2023-09-30 20:25] VITALS: BP 146/95
[2023-09-30] MEDS: DEXAMETHASONE 10 MG/ML VIAL IM STA (20:43)
[2023-09-30] MEDS: HYDROcod/ACETAM 5/325 MG TABLET PO STA (20:43)
== END 2023-09-30 21:03 | disposition home or self-care (01) ==
LOC: ED 16:55
DX: M32.9 Systemic lupus erythematosus, unspecified (principal)
CPT/HCPCS: 87633; 96372; 99283; 99284; A9270

== ENCOUNTER 2023-12-15 10:59 | Outpatient (CLI) | payer MEDICAID ==
[2023-12-15 11:21] LABS: BILIRUBIN,URINE NEGATIVE (NEGATIVE); GLUCOSE, URINE (UA) NEGATIVE (NEGATIVE); KETONES,URINE (UA) NEGATIVE (NEGATIVE); LEUKOCYTE ESTERASE, URINE NEGATIVE (NEGATIVE); NITRITE,URINE NEGATIVE (NEGATIVE); OCCULT BLOOD,URINE LARGE (NEGATIVE); PROTEIN,URINE TRACE mg/dL (NEGATIVE); UROBILINOGEN,URINE 0.2 (NORMAL) E.U./dL (NORMAL)
[2023-12-15 11:23] LABS: CLARITY,URINE SL. CLOUDY (CLEAR)
[2023-12-15 11:30] LABS: BACTERIA,URINE Few /HPF (None Seen); RBC,URINE TNTC /HPF (0-5); SQUAMOUS EPITHELIAL CELL,UR MOD Squamous (<= Few)
[2023-12-15 11:32] LABS: ALBUMIN 4.4 g/dL (3.2-5.5); ALBUMIN/GLOBULIN RATIO 1.9 (1.0-2.2); BILIRUBIN,TOTAL 0.4 mg/dL (0.2-1.0); CALCIUM 9.4 mg/dL (8.5-10.3); CREATININE 0.7 mg/dL (0.6-1.3); MAGNESIUM 1.8 mg/dL (1.7-2.3); POTASSIUM 3.9 mmol/L (3.5-4.5); TOTAL PROTEIN 6.7 g/dL (6.4-8.9)
== END 2023-12-15 11:00 | disposition home or self-care (01) ==
LOC: LAB 10:59
PROVIDERS: ATTEND Physician Assistant
DX: M79.10 Myalgia, unspecified site (principal)
CPT/HCPCS: 36415; 80053; 81001; 81003; 82085; 82550; 83735; 87086

== ENCOUNTER 2024-01-13 09:44 | Outpatient (CLI) | payer MEDICAID ==
[2024-01-13 09:59] LABS: BASOPHILS # (AUTO) 0.1 10^3/uL (0.0-0.1); BASOPHILS % (AUTO) 0.9 %; EOSINOPHILS # (AUTO) 0.2 10^3/uL (0.0-0.7); HCT - HEMATOCRIT 34.9 % (37.0-47.0); HGB - HEMOGLOBIN 10.9 g/dL (12.0-16.0); LYMPHOCYTES # (AUTO) 2.3 10^3/uL (1.5-3.5); LYMPHOCYTES % (AUTO) 40.8 %; MEAN CORPUSCULAR HEMOGLOBIN 24.8 pg (27.0-31.0); MEAN CORPUSCULAR HGB CONC 31.2 g/dL (32.0-36.0); MEAN CORPUSCULAR VOLUME 79.5 fL (81.0-99.0); MEAN PLATELET VOLUME 11.1 fL (7.9-10.8); MONOCYTES # (AUTO) 0.4 10^3/uL (0.0-1.0); MONOCYTES % (AUTO) 6.6 %; NEUTROPHILS # (AUTO) 2.7 10^3/uL (1.5-6.6); NEUTROPHILS % (AUTO) 48.5 %; PLT - PLATELET COUNT 240 10^3/uL (130-450); RED BLOOD COUNT 4.39 10^6/uL (4.20-5.40); RED CELL DISTRIBUTION WIDTH 13.2 % (12.0-15.0); WHITE BLOOD COUNT 5.6 x10^3/uL (4.8-10.8)
[2024-01-13 10:16] LABS: MAGNESIUM 1.7 mg/dL (1.7-2.3)
[2024-01-13 10:17] LABS: BILIRUBIN,URINE NEGATIVE (NEGATIVE); GLUCOSE, URINE (UA) NEGATIVE (NEGATIVE); KETONES,URINE (UA) NEGATIVE (NEGATIVE); LEUKOCYTE ESTERASE, URINE NEGATIVE (NEGATIVE); NITRITE,URINE NEGATIVE (NEGATIVE); OCCULT BLOOD,URINE SMALL (NEGATIVE); PROTEIN,URINE NEGATIVE (NEGATIVE); UROBILINOGEN,URINE 0.2 (NORMAL) E.U./dL (NORMAL)
[2024-01-13 10:31] LABS: BACTERIA,URINE Few /HPF (None Seen); CLARITY,URINE HAZY (CLEAR); RBC,URINE 0-5 /HPF (0-5); SQUAMOUS EPITHELIAL CELL,UR MANY Squamous (<= Few); WBC,URINE 0-3 /HPF (0-5)
[2024-01-13 10:32] LABS: MUCUS,URINE Few Strands
== END 2024-01-13 09:45 | disposition home or self-care (01) ==
LOC: LAB 09:44
PROVIDERS: ATTEND Physician Assistant
DX: Z01.89 Encounter for other specified special examinations (principal); M79.10 Myalgia, unspecified site; Z78.9 Other specified health status
CPT/HCPCS: 36415; 81001; 82306; 83540; 83735; 84466; 85025; 87086

== ENCOUNTER 2024-01-25 05:27 | Outpatient (CLI) | payer MEDICAID ==
--- NOTE | 2024-01-25 08:43 | XRAY Report ---
PROCEDURE: Ankle 3+V LT INDICATIONS: OTHER SPRAIN OF LEFT FOOT TECHNIQUE: 3 views of the ankle were acquired. COMPARISON: None. FINDINGS: Bones: No fractures or dislocations. Ankle mortise is normally aligned. No suspicious bony lesions . Soft tissues: No tibiotalar joint effusion. Achilles tendon appears normal. IMPRESSION: No acute bony abnormality. If pain persists with conservative management, consider repeat x-ray in 10 -14 days or cross-sectional imaging. Reviewed by: Zeb Morales MD on 01/25/2024 8:42 AM PDT Approved by: Zeb Morales MD on 01/25/2024 8:42 AM PDT Station ID: [id number]
== END 2024-01-25 05:28 | disposition home or self-care (01) ==
LOC: DI 05:27
PROVIDERS: ATTEND Physician Assistant
DX: S93.692A Other sprain of left foot, initial encounter (principal)

== ENCOUNTER 2024-02-21 09:37 | Emergency (ER) | payer MEDICAID ==
[2024-02-21 10:07] VITALS: BP 145/109; O2SAT 100
--- NOTE | 2024-02-21 10:20 | XRAY Report ---
PROCEDURE: Foot 3+V LT INDICATIONS: L foot pain TECHNIQUE: 3 views of the foot were acquired. COMPARISON: None. FINDINGS: Bones: No fractures or dislocations. No suspicious bony lesions. Soft tissues: No tibiotalar joint effusion. Achilles tendon appears normal. IMPRESSION: No acute bony abnormality. Reviewed by: Venancio Silva MD on 02/21/2024 10:19 AM PDT Approved by: Venancio Silva MD on 02/21/2024 10:19 AM PDT Station ID: [id number]
--- NOTE | 2024-02-21 10:56 | ED Physician Documentation ---
History of Present Illness - Stated complaint Stated Complaint: LT FOOT INJ - Chief complaint Chief Complaint: Trauma Ext - History obtained from History obtained from: Patient - History of Present Illness Timing: How many days ago (2) Pain level max: 6 Pain level now: 6 - Additonal information Additional information: 39 year-old female with left foot numbness and pain. She states that she has had numbness to the foot for quite some time. She has an appointment with her doctor tomorrow for this. She states that the foot began to have more pain in it two days ago after working. She states that occasionally she will feel numbness from her foot all the way up to her left hip. Worse with walking, better with rest. She feels like the foot is more swollen than usual, especially at the base of the fifth metatarsal. No redness. Does not recall any specific trauma. 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 : None HEENT: None Psych: Depression, Anxiety, Panic attacks Musculoskeletal: Fibromyalgia, Other Derm: None - Past Surgical History Past Surgical History: Yes Ortho: Carpal Tunnel surgery, Other /TIRE CENTER MANAGER: section, 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 - Present Medications Home Medications: Ambulatory Orders Medication Instructions Recorded Confirmed Alprazolam [Xanax] 0.5 mg PO DAILY PRN 03/08/23 02/21/24 Albuterol Sulfate [Proair 90 mcg IH Q4HR PRN 04/01/23 02/21/24 Respiclick] Ferrous Gluconate 324 mg PO DAILY 04/01/23 02/21/24 Ergocalciferol [Vitamin D2] 1 cap PO OAW 07/19/23 02/21/24 Fluticasone Propionate 100 mcg IH DAILY 09/30/23 02/21/24 Oxycodone HCl/Acetaminophen 1 - 2 each PO Q6H PRN #10 tablet 02/21/24 [Percocet 5-325 mg Tablet] MDD 6 tabs - Allergies Allergies/Adverse Reactions: Allergies Allergy/AdvReac Type Severity Reaction Status Date / Time Penicillins Allergy Severe Rash Verified 02/21/24 09:53 sertraline [From Zoloft] Allergy Unknown Verified 02/21/24 09:53 amoxicillin AdvReac Rash Verified 02/21/24 09:53 clindamycin AdvReac Rash Verified 02/21/24 09:53 ibuprofen AdvReac Unknown Verified 02/21/24 09:53 Underpadding from last CTR AdvReac Severe Rash Uncoded 09/30/23 17:18 - Social History Does the pt smoke?: No Smoking Status: Former smoker Does the pt drink ETOH?: No Does the pt have substance abuse?: No - Immunizations Immunizations are current?: Yes Immunizations: TDAP >10years/unknown - POLST Patient has POLST: No PD ED PE NORMAL - Vitals Vital signs reviewed: Yes - General General: Alert and oriented X 3, No acute distress - HEENT HEENT: Moist mucous membranes - Derm Derm: Warm and dry - Extremities Extremities: Other (L foot - TTP over the base of the 5th MT. mild swelling.mild decreased sensation over the dorsum of the foot. no skin changes. FROM of the foot and ankle, but with pain. brisk cap refill, normal pulses. ) - Neuro Neuro: Alert and oriented X 3 Results - Vitals Vitals: Vital Signs - 24 hr 02/21/24 09:53 Temperature 36.5 C Heart Rate 80 Respiratory 16 Rate Blood Pressure 145/109 H O2 Saturation 100 Oxygen O2 Source Room air - Rads (name of study) L foot xray Relevant Findings:: Final report received, See rad report PD Medical Decision Making - ED course Complexity details: reviewed results, considered differential, d/w patient, d/w family ED course: Patient with left foot pain/numbness of unclear etiology. No acute findings on x-ray. Placed in a post operative shoe for comfort. We will prescribe pain medication for Home. Given crutches as well. We will have her follow up with her doctor tomorrow as scheduled for further care. No indication for further testing at this time. No evidence of cauda equina or epidural abscess. No focal neurological deficits. No loss of bowel or bladder control. Patient counseled regarding signs and symptoms for which I believe an urgent re-evaluation would be necessary. Patient with good understanding of and agreement to plan and is comfortable going home at this time. This document was made in part using voice recognition software. While efforts are made to proofread this document, sound alike and grammatical errors may occur. Departure - Departure Disposition: 01 Home, Self Care Clinical Impression: Sprain of foot, left Qualifiers: Encounter type: initial encounter Qualified Code(s): S93.602A - Unspecified sprain of left foot, initial encounter Condition: Good Instructions: ED Sprain Foot Follow-Up: EMEKA VALENCIA PA [Primary Care Provider] - Tomorrow Prescriptions: Oxycodone HCl/Acetaminophen [Percocet 5-325 mg Tablet] 1 - 2 each PO Q6H PRN #10 tablet MDD 6 tabs PRN Reason: pain Comments: Your prescription was sent to the [facility] pharmacy. Your x-ray does not show any acute abnormalities. Please follow-up with your doctor tomorrow for further evaluation and care. You may bear weight as tolerated. I am prescribing a short course of narcotic pain medication for you. These are potentially dangerous and addictive medications that should be used carefully. These medications may constipate you. Take an nuhw-tby-bupcdqj stool softener (docusate) twice daily with plenty of water while taking these medications. If you go 24 hours without a bowel movement, take pttl-[id number] miralax, per package instructions. Do not drink or drive while taking these medications. If you received narcotic or sedating medications while in the emergency department, do not drive for 24 hours. Store this medication in a safe, secure place and out of reach of children. It is a violation of federal law to give or sell this medication to another person or to use in a manner other than prescribed. The ED will not refill narcotic prescriptions, including prescriptions lost or stolen. To dispose of unwanted medications: 1. [facility] at [address] in [place] has a medication drop box. They accept prescription medications (in pill form) Tuesday through Tuesday 9:00 a.m. to 5:00 p.m. 2. The [facility] [employer] accepts prescription medications (in pill form only) for disposal year round. Call for more information. 3. Contact the [facility] for the next [facility] sponsored prescription drug collection event. , [phone], or [phone]; Forms: PCP List Discharge Date/Time: 02/21/24 11:20
[2024-02-21] MEDS: oxyCODONE 5 MG TABLET PO STA (11:04)
== END 2024-02-21 11:20 | disposition home or self-care (01) ==
LOC: ED 09:37
DX: S93.602A Unspecified sprain of left foot, initial encounter (principal); X58.XXXA Exposure to other specified factors, initial encounter; Y99.0 Civilian activity done for income or pay; Z87.891 Personal history of nicotine dependence
CPT/HCPCS: 73630; 99283; A9270

== ENCOUNTER 2024-03-05 07:04 | Outpatient (CLI) | payer MEDICAID ==
--- NOTE | 2024-03-05 12:37 | MRI Report ---
Ankle LT WO CLINICAL HISTORY: 39 years of age, Female, GANGLION CYST, PERONEAL TENDINOSIS. COMPARISON: None Technique: Multisequence, multiplanar MRI of the left ankle was performed without contrast. IV CONTRAST: Not given FINDINGS: Tendons: Mild tenosynovitis of the posterior tibialis. The flexor digitorum longus, and the flexor bella llux longus are unremarkable. The extensor tendons are unremarkable. Mild tenosynovitis of the perone al tendons with longitudinal split tear of the peroneal brevis. There is a 1.3 cm cystic lesion about the insertion of the peroneal brevis at the base of the fifth metatarsal, which may represent a gang lion cyst. The distal Achilles tendon is unremarkable. Ligaments: The anterior and posterior tibiofibular ligaments are intact. The anterior and posterior t alofibular ligaments are intact. The calcaneofibular ligament is unremarkable. The superficial and de ep components of the deltoid ligament are intact. Sinus Tarsi: Normal signal without evidence of inflammatory change or fibrosis. Plantar fascia: Mild thickening of the central cord, concerning for plantar fasciitis. Muscles: Visualized intrinsic foot musculature demonstrates normal signal and bulk. Bones and cartilage: Normal bone marrow signal. No fractures. No osteochondral lesions. Miscellaneous: Tarsal tunnel appears normal. No significant effusion. No ganglion cyst. IMPRESSION: 1.Mild tenosynovitis of the peroneal tendons with longitudinal split tear of the peroneal brevis. 2.1.3 cm cystic lesion about the base of the fifth metatarsal, favoring to represent a ganglion cyst. However, limited evaluation given noncontrast study. 3.Plantar fasciitis. Reviewed by: Donna Santillan MD on 03/05/2024 12:36 PM PDT Approved by: Donna Santillan MD on 03/05/2024 12:36 PM PDT Station ID: [id number]
== END 2024-03-05 07:05 | disposition home or self-care (01) ==
LOC: DI 07:04
PROVIDERS: ATTEND Podiatrist
DX: M67.472 Ganglion, left ankle and foot (principal); M65.9 Synovitis and tenosynovitis, unspecified; S86.312A Strain of muscle(s) and tendon(s) of peroneal muscle group at lower leg level, left leg, initial encounter; M72.2 Plantar fascial fibromatosis